=== PATIENT | male | born 1965 | race Caucasian/White ===

== ENCOUNTER 2020-12-21 09:15 | Inpatient (IN) ==
[2020-12-21] MEDS ORDERED: SODIUM CHLORIDE 0.9% 1000ML 1,000 ML IV STA (10:09)
[2020-12-21] MEDS ORDERED: ACETAMINOPHEN 1,000 MG/100 ML VIAL IV STA (10:10)
[2020-12-21] MEDS ORDERED: guaiFENesin 600 MG TABCR PO STA (10:10)
[2020-12-21] MEDS ORDERED: FAMOTIDINE 20MG IV PUSH 20 MG/5 ML SYR IV STA (10:10)
[2020-12-21] MEDS ORDERED: ONDANSETRON INJ 2 MG/ML 2 ML VIAL IV STA (10:10)
[2020-12-21] MEDS ORDERED: ALBUTEROL HFA 8 GM INHALER INH ONE (10:10)
--- NOTE | 2020-12-21 10:19 | Emergency Department Note ---
Impression & Plan COVID-19, Hyponatremia, Pneumonia due to COVID-19 virus, Hypoxia ED Provider Note NAME: AMINTA VILLASENOR AGE: 55 SEX: M ARRIVES VIA: Ambulance INFORMANT: Patient, ED PROVIDER(S): Tree Licea MD CHIEF COMPLAINT: Feverish, body aches, cough, sob PLAN: Disposition: Admit MEDICAL DECISION MAKING: The patient is a 55-year-old gentleman presents to the emergency department accompanied by his who also presents as a patient each presenting with similar symptoms of fevers, nausea, decreased appetite and oral intake, mild cough, shortness of breath and body aches that for the patient began on . They deny any COVID-19 exposures. They were seen in the emergency department on Sunday for the symptoms and were not tested for COVID-19 because they declined this. They deny any known tick bites but do admit that they work out in the garden. He denies abdominal pain, urinary symptoms, chest pain. He last took ibuprofen last night. On arrival the patient is uncomfortable fatigued appearing, with temperature of 37.7 with heart rate in the 110s and O2 saturation 90% on room air placed on 2 L nasal cannula. He appears clinically dry. Lungs with scant intermittent wheeze, otherwise clear. EKG without overt acute ischemia. CXR with bibasilar airspace opacities are new from previous. WBC wnl but with lymphopenia to 0.49. H/H, platelets wnl. Chemistry without acidosis. BUN/Cr > 20 c/w patient's clinically dry appearance. Sodium 127 and Electrolytes otherwise unremarkable. LFTs elevated approximate to prior. Tro ponin negative/undetectable. Lipase wnl. UA without convincing evidence of infection. Lyme screen negative. Anaplasm screen negative. Covid-19 PCR positive, as was his 's. Patient treat with IVF, dexamethasone, Albuterol MDI, antiemetics. He did feel some improvement but agrees with plan for admission given hypoxia and malaise. Mendez Douglas PAC, with Mendez Ortega hospitalist to evaluate the patient for admission. Triage Nursing notes reviewed and agree them. Prior medical records reviewed Vital Signs: reviewed and remarkable for fever, tachycardia, hypoxia. Differential diagnosis: Viral syndrome, otitis, pharyngitis, pneumonia, influenza, meningitis, urinary tract infection, sepsis, bacteremia, as well as other pathologies. ER treatment provided: See below. Diagnostics interpreted by me: ECG: Sinus tachycardia, 107 bpm, no ectopy, no overt ST elevation or depression. Cardiac Monitoring: An order for continuous cardiac monitoring was placed and demonstrated Sinus tachycardia, 107 bpm, no ectopy. Laboratory studies: See below Imaging studies: See below Consultation(s): Mendez Douglas [facility], with Dr. Forbes, [facility] hospitalist to evaluate the patient for admission. HPI: The patient is a 55-year-old gentleman presents to the emergency department accompanied by his who also presents as a patient each presenting with similar symptoms of fevers, nausea, decreased appetite and oral intake, mild cough, shortness of breath and body aches that for the patient began on . They deny any COVID-19 exposures. They were seen in the emergency department on Sunday for the symptoms and were not tested for COVID-19 because they declined this. They deny any known tick bites but do admit that they work out in the garden. He denies abdominal pain, urinary symptoms, chest pain. He last took ibuprofen last night. ROS: See above HPI for pertinent positives & negatives. A total of 10 systems reviewed and were otherwise negative. PAST MEDICAL HISTORY:See Below PAST SURGICAL HISTORY:See Below FAMILY HISTORY:See Below SOCIAL HISTORY:See Below HOME MEDICATIONS:See Below ALLERGIES:See Below VITALS:See Below PHYSICAL EXAMINATION: GENERAL: Awake, alert, uncomfortable ill-appearing, in no distress HENT: Normocephalic, atraumatic. Oropharynx with dry mucous membranes and otherwise unremarkable. EYES: Normal conjunctiva. Sclera non-icteric. NECK: Supple. No nuchal rigidity. FROM. No JVD. RESPIRATORY: Scant intermittent wheeze otherwise, clear to auscultation. CARDIAC: Tachycardic rate, normal rhythm. Extremities warm and well perfused. Pulses equal. ABDOMEN: Soft, non-distended. No tenderness to palpation. No rebound or guarding. No masses. RECTAL: Deferred. MUSCULOSKELETAL: Chest examination reveals no tenderness. The back is symmetrical on inspection without obvious abnormality. There is no CVA tenderness to palpation. No joint edema. LOWER EXTREMITIES: Calves are equal size bilaterally and non-tender. No edema. No discoloration. NEURO: Normal sensorium. No sensory or motor deficits noted. SKIN: No rash or jaundice noted. Tree Licea MD Past Med/Surg History Medical History HLD (hyperlipidemia) HTN (hypertension) Surgical History H/O inguinal hernia repair H/O knee surgery H/O vasectomy Family History Other Depression Diabetes Hypertension Social History Smoking Status: Former smoker Tobacco Type: Cigarettes Smoking End Date: 25 years ago or more; Hx Alcohol Use: Yes Alcohol type: beer, wine and hard liquor Alcohol Intake Frequency: Monthly or Less Hx Substance Use: No Preferred Language: Kazakh Communication Ability: Effective [employer] Required: No Beliefs That Will Affect Care: None Current Living Situation: Spouse Current Living Situation Comment: Lives with Other Information That Helps Us Care for You: No Feels Safe at Home: Yes Safety Concerns: Feels Safe At This Time Assistive Devices: Glasses Assistive Devices Comment: Wears "readers" and prescription driving glasses Allergies Allergies Allergy/AdvReac Type Severity Reaction Status Date / Time No Known Allergies Allergy Unknown PT DENIES Verified 12/21/20 13:02 ALL ALLERGIES Home Meds Home Medications Medication Instructions Recorded Confirmed diphenhydramine HCl 25 mg capsule 25 mg PO HS 08/07/19 12/21/20 (Benadryl) hydrochlorothiazide 25 mg tablet 25 mg PO HS 08/07/19 12/21/20 lisinopril 20 mg tablet 20 mg PO HS 08/07/19 12/21/20 omeprazole magnesium 20 mg 20 mg PO HS 08/07/19 12/21/20 tablet,delayed release (Prilosec OTC) ascorbic acid (vitamin C) 1,000 mg 500 mg PO HS 12/19/20 12/21/20 tablet (Vitamin C) cholecalciferol (vitamin D3) 25 25 mcg PO HS 12/19/20 12/21/20 mcg (1,000 unit) tablet (Vitamin D3) magnesium 250 mg tablet 250 mg PO HS 12/19/20 12/21/20 selenium 200 mcg tablet 200 mcg PO HS 12/19/20 12/21/20 azithromycin 250 mg tablet 250 mg PO DAILY 12/21/20 12/21/20 (Zithromax) omega-3 fatty acids-vitamin E 1 cap PO HS 12/21/20 12/21/20 1,000 mg capsule zinc 10 mg tablet 10 mg PO DAILY 12/21/20 12/21/20 Previous Rx's Medication Instructions Recorded ondansetron 4 mg disintegrating 4 mg PO Q6H PRN #15 tab 12/19/20 tablet Results & Data (ED) Vital Signs Vital Signs - 24 hr 12/21/20 09:27 12/21/20 10:56 12/21/20 11:03 Temperature 37.7 C H Temperature Source Oral Pulse Rate 110 H 104 H Pulse Rate from SpO2 Sensor 103 H Respiratory Rate 18 25 H Blood Pressure 140/87 189/117 H Blood Pressure Mean 104 141 Pulse Oximetry 90 90 98 Oxygen Delivery Method Room Air Room Air Nasal Cannula Oxygen Flow Rate 2 Sepsis Recent Fever Within 48 Hours Yes Sepsis New/Unexplained Change in Mental Status No Sepsis Action Taken by Nursing No Action Required 12/21/20 11:30 12/21/20 12:00 12/21/20 12:30 Temperature Temperature Source Pulse Rate 100 H 105 H 103 H Pulse Rate from SpO2 Sensor 99 H 106 H 102 H Respiratory Rate 26 H 26 H 18 Blood Pressure 130/75 113/82 Blood Pressure Mean 93 92 Pulse Oximetry 97 95 95 Oxygen Delivery Method Nasal Cannula Nasal Cannula Room Air Oxygen Flow Rate 2 2 Sepsis Recent Fever Within 48 Hours Sepsis New/Unexplained Change in Mental Status Sepsis Action Taken by Nursing Laboratory Data Attestation: I reviewed the patient's lab results. Result diagrams: 12/21/20 10:30 12/21/20 11:56 Lab Results 12/21/20 12/21/20 12/21/20 Range/Units 10:30 10:30 10:30 WBC 5.61 (4.8-10.8) K/uL RBC 4.88 (4.7-6.1) M/uL Hgb 15.7 (14.0-18.0) g/dL Hct 42.7 (42-52) % MCV 87.5 (80-100) fL MCH 32.2 (25-34) pg MCHC 36.8 H (32-36) g/dL RDW Std Deviation 40.3 (36.4-46.3) fL RDW Coeff of Angel 12.5 (11.5-14.5) % Plt Count 153 (130-400) K/uL MPV 9.6 (7.4-10.4) fL Immature Gran % (Auto) 0.7 % Neut % (Auto) 78.5 % Lymph % (Auto) 8.7 % [facility] [place] % (Auto) 11.9 % Eos % (Auto) 0.0 % Baso % (Auto) 0.2 % Neut # (Auto) 4.40 (1.4-6.5) K/uL Lymph # (Auto) 0.49 L (1.2-3.4) K/uL [facility] # (Auto) 0.67 H (0.11-0.59) K/uL Eos # (Auto) 0.00 (0-0.5) K/uL Baso # (Auto) 0.01 (0-0.2) K/uL Immature Gran # (Auto) 0.04 H (0.00-0.02) K/uL Sodium 127 L (136-145) mmol/L Potassium (3.5-5.1) mmol/L Chloride 94 L (98-107) mmol/L Carbon Dioxide 28 (21-32) mmol/L Anion Gap 5.0 (3-11) BUN 22 H (7-18) mg/dl Creatinine 0.99 (0.6-1.4) mg/dl Est Cr Clr Drug Dosing 101.7 ml/min Est GFR ( Amer) 99.7 ml/min Est GFR (Non-Af Amer) 86.0 ml/min BUN/Creatinine Ratio 22.3 H (10-20) Glucose 123 H (70-99) mg/dl Osmolality (280-300) mOsm/kg Calcium 8.6 (8.5-10.1) mg/dl Phosphorus 2.5 (2.5-4.9) mg/dl Magnesium (1.8-2.4) mg/dl Total Bilirubin 1.1 H (0.2-1) mg/dl Direct Bilirubin TNP AST (15-37) U/L ALT 139 H (12-78) U/L Alkaline Phosphatase 55 (45-117) U/L Troponin I < 0.015 (0-0.045) ng/ml Total Protein 7.7 (6.4-8.2) gm/dl Albumin 3.5 (3.4-5.0) gm/dl Globulin 4.2 H (2.5-4.0) gm/dl Albumin/Globulin Ratio 0.8 L (0.9-2) Lipase 325 (73-393) U/L TSH 0.880 (0.300-4.500) uIu/ml Anaplasma Smear See Comment Lyme Disease IgG Ab Cancelled Lyme Disease IgM Ab Cancelled COVID-19 Eval Order SARS-CoV-2 (PCR) (Negative) 12/21/20 12/21/20 12/21/20 Range/Units 11:00 11:00 11:56 WBC (4.8-10.8) K/uL RBC (4.7-6.1) M/uL Hgb (14.0-18.0) g/dL Hct (42-52) % MCV (80-100) fL MCH (25-34) pg MCHC (32-36) g/dL RDW Std Deviation (36.4-46.3) fL RDW Coeff of Angel (11.5-14.5) % Plt Count (130-400) K/uL MPV (7.4-10.4) fL Immature Gran % (Auto) % Neut % (Auto) % Lymph % (Auto) % [facility] % (Auto) % Eos % (Auto) % Baso % (Auto) % Neut # (Auto) (1.4-6.5) K/uL Lymph # (Auto) (1.2-3.4) K/uL [facility] # (Auto) (0.11-0.59) K/uL Eos # (Auto) (0-0.5) K/uL Baso # (Auto) (0-0.2) K/uL Immature Gran # (Auto) (0.00-0.02) K/uL Sodium (136-145) mmol/L Potassium 3.7 (3.5-5.1) mmol/L Chloride (98-107) mmol/L Carbon Dioxide (21-32) mmol/L Anion Gap (3-11) BUN (7-18) mg/dl Creatinine (0.6-1.4) mg/dl Est Cr Clr Drug Dosing ml/min Est GFR ( Amer) ml/min Est GFR (Non-Af Amer) ml/min BUN/Creatinine Ratio (10-20) Glucose (70-99) mg/dl Osmolality (280-300) mOsm/kg Calcium (8.5-10.1) mg/dl Phosphorus (2.5-4.9) mg/dl Magnesium 2.4 (1.8-2.4) mg/dl Total Bilirubin (0.2-1) mg/dl Direct Bilirubin AST 91 H (15-37) U/L ALT (12-78) U/L Alkaline Phosphatase (45-117) U/L Troponin I (0-0.045) ng/ml Total Protein (6.4-8.2) gm/dl Albumin (3.4-5.0) gm/dl Globulin (2.5-4.0) gm/dl Albumin/Globulin Ratio (0.9-2) Lipase (73-393) U/L TSH (0.300-4.500) uIu/ml Anaplasma Smear Lyme Disease IgG Ab Lyme Disease IgM Ab COVID-19 Eval Order Covid19 at [facility] SARS-CoV-2 (PCR) POSITIVE A* (Negative) 12/21/20 12/21/20 Range/Units 11:56 11:56 WBC (4.8-10.8) K/uL RBC (4.7-6.1) M/uL Hgb (14.0-18.0) g/dL Hct (42-52) % MCV (80-100) fL MCH (25-34) pg MCHC (32-36) g/dL RDW Std Deviation (36.4-46.3) fL RDW Coeff of Angel (11.5-14.5) % Plt Count (130-400) K/uL MPV (7.4-10.4) fL Immature Gran % (Auto) % Neut % (Auto) % Lymph % (Auto) % [facility] % (Auto) % Eos % (Auto) % Baso % (Auto) % Neut # (Auto) (1.4-6.5) K/uL Lymph # (Auto) (1.2-3.4) K/uL [facility] # (Auto) (0.11-0.59) K/uL Eos # (Auto) (0-0.5) K/uL Baso # (Auto) (0-0.2) K/uL Immature Gran # (Auto) (0.00-0.02) K/uL Sodium (136-145) mmol/L Potassium (3.5-5.1) mmol/L Chloride (98-107) mmol/L Carbon Dioxide (21-32) mmol/L Anion Gap (3-11) BUN (7-18) mg/dl Creatinine (0.6-1.4) mg/dl Est Cr Clr Drug Dosing ml/min Est GFR ( Amer) ml/min Est GFR (Non-Af Amer) ml/min BUN/Creatinine Ratio (10-20) Glucose (70-99) mg/dl Osmolality 278 L (280-300) mOsm/kg Calcium (8.5-10.1) mg/dl Phosphorus (2.5-4.9) mg/dl Magnesium (1.8-2.4) mg/dl Total Bilirubin (0.2-1) mg/dl Direct Bilirubin AST (15-37) U/L ALT (12-78) U/L Alkaline Phosphatase (45-117) U/L Troponin I (0-0.045) ng/ml Total Protein (6.4-8.2) gm/dl Albumin (3.4-5.0) gm/dl Globulin (2.5-4.0) gm/dl Albumin/Globulin Ratio (0.9-2) Lipase (73-393) U/L TSH (0.300-4.500) uIu/ml Anaplasma Smear Lyme Disease IgG Ab Negative Lyme Disease IgM Ab Negative COVID-19 Eval Order SARS-CoV-2 (PCR) (Negative) Administered Medications Acetaminophen (Acetaminophen 325 Mg Tab) 650 mg PO Q4H PRN PRN Reason: Pain or Fever Stop: 01/20/21 16:37 Last Admin: 12/22/20 00:08 Dose: 650 mg Documented by: [id number] Ascorbic Acid (Ascorbic Acid 500 Mg Tab) 500 mg PO HS STEPHANIE Stop: 01/20/21 20:59 Last Admin: 12/21/20 20:45 Dose: 500 mg Documented by: [id number] Enoxaparin Sodium (Enoxaparin Inj 40 Mg/0.4 Ml Syr) 40 mg SQ Q12H STEPHANIE Stop: 01/20/21 17:59 Last Admin: 12/21/20 18:06 Dose: 40 mg Documented by: [id number] Sodium Chloride (Nss 1000ml) 1,000 mls @ 125 mls/hr IV .Q8H STEPHANIE Stop: 01/20/21 12:44 Last Admin: 12/21/20 20:46 Dose: 125 mls/hr Documented by: [id number] Infusion: 12/21/20 20:46 Dose: 125 mls/hr Documented by: [id number] Admin: 12/21/20 13:04 Dose: 125 mls/hr Documented by: [id number] Magnesium Oxide (Magnesium Oxide 400 Mg Tab) 400 mg PO STEPHANIE Stop: 01/20/21 20:59 Last Admin: 12/21/20 20:45 Dose: 400 mg Documented by: [id number] Pantoprazole Sodium (Pantoprazole 40 Mg Tab) 40 mg PO [facility] Stop: 01/20/21 20:59 Last Admin: 12/21/20 20:46 Dose: 40 mg Documented by: [id number] Sodium Chloride (Sodium Chloride 0.65% Na Soln 45 Ml ([place])) 2 sprays NA TID PRN PRN Reason: Nasal Congestion Stop: 01/20/21 23:24 Last Admin: 12/22/20 00:08 Dose: 2 sprays Documented by: [id number] Vitamin D (Cholecalciferol 1,000 Units 25 Mcg Tab) 1,000 units PO [facility] Stop: 01/20/21 20:59 Last Admin: 12/21/20 20:45 Dose: 1,000 units Documented by: [id number] Discontinued Medications Albuterol (Albuterol Hfa 8 Gm Inhaler) 2 puffs INH NOW ONE Stop: 12/21/20 10:11 Last Admin: 12/21/20 11:26 Dose: 2 puffs Documented by: [id number] Dexamethasone Sodium Phosphate (DexamethasonePf 10 Mg/Ml Vial) 10 mg IV NOW ONE Stop: 12/21/20 12:33 Last Admin: 12/21/20 12:53 Dose: 10 mg Documented by: [id number] Guaifenesin (Guaifenesin 600 Mg Tabcr) 600 mg PO NOW STA Stop: 12/21/20 10:11 Last Admin: 12/21/20 11:22 Dose: 600 mg Documented by: [id number] Sodium Chloride (Nss 1000ml) 1,000 mls @ 999 mls/hr IV .Q1H1M STA Stop: 12/21/20 11:09 Last Infusion: 12/21/20 12:36 Dose: 0 mls/hr Documented by: [id number] Admin: 12/21/20 11:25 Dose: 999 mls/hr Documented by: [id number] Acetaminophen (Ofirmev) 1,000 mg in 100 mls @ 400 mls/hr IV NOW STA Stop: 12/21/20 10:24 Last Infusion: 12/21/20 12:35 Dose: 0 mls/hr Documented by: [id number] Admin: 12/21/20 11:21 Dose: 400 mls/hr Documented by: [id number] Famotidine (Pepcid 20mg Iv Push) 20 mg in 5 mls @ 2.5 mls/min IV NOW STA Stop: 12/21/20 10:11 Last Admin: 12/21/20 11:21 Dose: 2.5 mls/min Documented by: [id number] Remdesivir 200 mg/ Sodium (Chloride) 250 mls @ 125 mls/hr IV ONE STA; Protocol Stop: 12/21/20 16:25 Last Infusion: 12/21/20 19:13 Dose: 0 mls/hr Documented by: [id number] Admin: 12/21/20 16:18 Dose: 125 mls/hr Documented by: [id number] Ondansetron HCl (Ondansetron Inj 2 Mg/Ml 2 Ml Vial) 4 mg IV NOW STA Stop: 12/21/20 10:11 Last Admin: 12/21/20 11:20 Dose: 4 mg Documented by: [id number] Sodium Chloride (Sodium Chloride 0.9% 10ml Flush) 30 ml IV Q24H [facility] Stop: 12/21/20 14:31 Last Admin: 12/21/20 20:45 Dose: 30 ml Documented by: [id number] Zolpidem Tartrate (Zolpidem Tartrate 5 Mg Tab) 5 mg PO NOW STA Stop: 12/21/20 23:26 Last Admin: 12/22/20 00:08 Dose: 5 mg Documented by: [id number] Discharge Plan Visit Data Chief Complaint: Illness Stated Complaint: FLU LIKE SX, NAUSEA, HEADACHE, LETHARGY ED Provider: Tree Licea Discharge Problem: COVID-19, Hyponatremia, Pneumonia due to COVID-19 virus, Hypoxia Patient Disposition: Admitted As Inpatient Discharge Instructions Interventions: ED Discharge Assessment Last Done: 12/21/20 14:56
[2020-12-21 10:54] LABS: Basophils # (auto) 0.01 K/uL (0-0.2); Basophils % (auto) 0.2 %; Hematocrit (blood only) 42.7 % (42-52); Hemoglobin 15.7 g/dL (14.0-18.0); Immature Granulocytes # (auto) 0.04 K/uL (0.00-0.02); Immature Granulocytes % (auto) 0.7 %; Lymphocytes # (auto) 0.49 K/uL (1.2-3.4); Lymphocytes % (auto) 8.7 %; Mean Corpuscular Hemoglobin 32.2 pg (25-34); Mean Corpuscular Hgb Conc 36.8 g/dL (32-36); Mean Corpuscular Volume 87.5 fL (80-100); Mean Platelet Volume 9.6 fL (7.4-10.4); Monocytes # (auto) 0.67 K/uL (0.11-0.59); Monocytes % (auto) 11.9 %; Neutrophils % (auto) 78.5 %; Platelet Count 153 K/uL (130-400); RDW Coefficient of Variation 12.5 % (11.5-14.5); RDW Standard Deviation 40.3 fL (36.4-46.3); Red Blood Count 4.88 M/uL (4.7-6.1); White Blood Count 5.61 K/uL (4.8-10.8)
--- NOTE | 2020-12-21 11:16 | XRay Report ---
SINGLE VIEW CHEST CLINICAL HISTORY: Atypical chest pain. FINDINGS: An AP, portable, upright chest radiograph is compared to study dated 12/19/2020. The heart i s enlarged. The pulmonary vasculature is noncongested. Patchy opacities are present at both lung base s. No large pleural effusion or pneumothorax is seen. The skeletal structures appear osteopenic. The bony thorax is grossly intact. IMPRESSION: 1. Cardiomegaly without radiographic evidence of congestive failure. 2. Bibasilar airspace opacities are new from previous. Correlate clinically for evidence of an infect ious/inflammatory pneumonitis. Radiographic follow-up to resolution is recommended. ACT 112: Negative or not required by law. Electronically signed by: Antonio Collins M.D. 12/21/2020 11:15 AM
[2020-12-21 11:26] LABS: Alanine Aminotransferase 139 U/L (12-78); Albumin Globulin Ratio 0.8 (0.9-2); Albumin Level 3.5 gm/dl (3.4-5.0); Alkaline Phosphatase 55 U/L (45-117); BUN Creatinine Ratio 22.3 (10-20); Bilirubin,Total 1.1 mg/dl (0.2-1); Blood Urea Nitrogen 22 mg/dl (7-18); Calcium 8.6 mg/dl (8.5-10.1); Carbon Dioxide 28 mmol/L (21-32); Chloride 94 mmol/L (98-107); Creatinine Clr Calc Pharmacy 101.7 ml/min; Est GFR (African American) 99.7 ml/min; Globulin 4.2 gm/dl (2.5-4.0); Glucose 123 mg/dl (70-99); Lipase 325 U/L (73-393); Phosphorus 2.5 mg/dl (2.5-4.9); Sodium 127 mmol/L (136-145); Total Protein 7.7 gm/dl (6.4-8.2); Troponin I < 0.015 ng/ml (0-0.045)
[2020-12-21 12:17] LABS: Potassium 3.7 mmol/L (3.5-5.1)
[2020-12-21 12:21] LABS: Magnesium 2.4 mg/dl (1.8-2.4)
[2020-12-21] MEDS ORDERED: dexAMETHasone**PF** 10 MG/ML VIAL IV ONE (12:32)
[2020-12-21 12:49] LABS: Lyme Ab IgG w/WB Rflx Negative (Negative); Lyme Ab IgM w/WB Rflx Negative (Negative)
--- NOTE | 2020-12-21 12:55 | History & Physical Report ---
Date of Service December 21, 2020 Assessment & Plan (1) COVID-19: Plan: This is a 55yo M with a PMH of HTN and DLD who presents with viral symptoms that began 6 days ago and was found to be covid-19 positive on PCR test. Saturating 95% on 2L NC - will assess O2 saturation on room air Denies cough or SOB CXR with bibasilar airspace opacities are new from previous. Correlate clinically for evidence of an infectious/inflammatory pneumonitis No leukocytosis. Procal pending - no indication for antibiotics at this time No evidence of anaplasma on peripheral smear, lyme serology negative Continue dexamethasone, gentle IV fluids, supportive care Covid isolation precautions (2) Hyponatremia: Plan: Sodium 127 - hypotonic hypovolemic hyponatremia Continue gentle IV fluid resuscitation Monitor with daily BMP (3) HTN (hypertension): Plan: Normotensive. Holding HCTZ while clinically dry. Continue lisinopril HS (4) HLD (hyperlipidemia): Plan: Diet controlled DVT Ppx:SQ Lovenox Code status: FULL PCP: Didi iWnters Dispo: Admitted to PCU Patient seen in collaboration with Dr. Forbes. Please see addendum. History of Present Illness Chief Complaint: viral symptoms Primary Care Provider: Edi Winters, DO This is a 55yo M with a PMH of HTN and DLD who presents with viral symptoms that began 6 days ago. Patient endorses fevers (tmax 100.5 F), sinus congestion, headache, generalized weakness, nausea and dry heaves. Also endorsing decreased PO intake. Was likely exposed at [facility] 2 Sundays ago. Patient has not received covid vaccine. Went to [facility] ED on Sunday for similar symptoms but declined Covid-19 testing at that time. Took ibuprofen and mucinex last evening with minimal relief. Denies chills, cough, chest pain, abdominal pain, dysuria, diarrhea. Feeling constipated with limited oral intake. Allergies Allergy/AdvReac Type Severity Reaction Status Date / Time No Known Allergies Allergy Unknown PT DENIES Verified 12/21/20 13:02 ALL ALLERGIES Home Medications Medication Instructions Recorded Confirmed Type diphenhydramine HCl 25 mg capsule 25 mg PO HS 08/07/19 12/21/20 History (Benadryl) hydrochlorothiazide 25 mg tablet 25 mg PO HS 08/07/19 12/21/20 History lisinopril 20 mg tablet 20 mg PO HS 08/07/19 12/21/20 History omeprazole magnesium 20 mg 20 mg PO HS 08/07/19 12/21/20 History tablet,delayed release (Prilosec OTC) ascorbic acid (vitamin C) 1,000 mg 500 mg PO HS 12/19/20 12/21/20 History tablet (Vitamin C) cholecalciferol (vitamin D3) 25 25 mcg PO HS 12/19/20 12/21/20 History mcg (1,000 unit) tablet (Vitamin D3) magnesium 250 mg tablet 250 mg PO HS 12/19/20 12/21/20 History ondansetron 4 mg disintegrating 4 mg PO Q6H PRN #15 tab 12/19/20 12/21/20 Rx tablet selenium 200 mcg tablet 200 mcg PO HS 12/19/20 12/21/20 History azithromycin 250 mg tablet 250 mg PO DAILY 12/21/20 12/21/20 History (Zithromax) omega-3 fatty acids-vitamin E 1 cap PO HS 12/21/20 12/21/20 History 1,000 mg capsule zinc 10 mg tablet 10 mg PO DAILY 12/21/20 12/21/20 History Past Med/Surg History Medical History (Updated 12/21/20 @ 13:51 by Moni De La Paz PA-C) HLD (hyperlipidemia) HTN (hypertension) Surgical History (Updated 12/21/20 @ 13:33 by Moni De La Paz PA-C) H/O inguinal hernia repair H/O knee surgery H/O vasectomy Family History Other Depression Diabetes Hypertension Social History (Updated 12/21/20 @ 13:50 by Moni De La Paz PA-C) Smoking Status: Former smoker Tobacco Type: Cigarettes Smoking End Date: 1989; Hx Alcohol Use: Yes Alcohol Intake Frequency: Monthly or Less Hx Substance Use: No Preferred Language: Occitan Feels Safe at Home: Yes Review of Systems Review of Systems: At least ten systems reviewed and negative except as noted in the HPI. Physical Exam Physical Exam: The patient was examined in emergency room. Lying in bed without any acute distress Constitutional: Mildly obese without any significant discomfort at rest Eyes: PERRL, conjunctivae normal, anicteric sclerae ENMT: external ear and nose normal, oropharynx normal Neck: trachea midline, no thyromegaly Respiratory: Auscultation: + diminished lung sounds and + crackles (Left base) Minimally decreased breath sound bilaterally with minimal crackles at the left base Cardiovascular: Rate/Rhythm: regular rate and regular rhythm Heart Sounds: normal S1 and normal S2; no murmur Extremities: no edema Gastrointestinal (Abdomen): normal bowel sounds, soft, nontender, no hepatosplenomegaly Neurologic: PERRL, EOMI, accommodation nl, no face palsy, no dysarthria Psychiatric: A+Ox3, euthymic affect Lymphatic: no cervical or axillary lymphadenopathy Results & Data Results & Data ([facility]) Vital Signs (Past 12 Hours) Vital Signs Temp Pulse Resp BP Pulse Ox 12/21/20 11:30 100 H 26 H 97 12/21/20 11:03 104 H 25 H 189/117 H 98 12/21/20 10:56 90 12/21/20 09:27 37.7 C H 110 H 18 140/87 90 Laboratory Results Short CBC 12/21/20 Range/Units 10:30 WBC 5.61 (4.8-10.8) K/uL Hgb 15.7 (14.0-18.0) g/dL Hct 42.7 (42-52) % Plt Count 153 (130-400) K/uL BMP 12/21/20 12/21/20 10:30 11:56 Sodium 127 L Potassium 3.7 Chloride 94 L Carbon Dioxide 28 BUN 22 H Creatinine 0.99 Glucose 123 H Calcium 8.6 Cardiac Enzymes 12/21/20 Range/Units 10:30 Troponin I < 0.015 (0-0.045) ng/ml Liver Function 12/21/20 12/21/20 Range/Units 10:30 11:56 Total Bilirubin 1.1 H (0.2-1) mg/dl Direct Bilirubin TNP AST 91 H (15-37) U/L ALT 139 H (12-78) U/L Alkaline Phosphatase 55 (45-117) U/L Albumin 3.5 (3.4-5.0) gm/dl Diagnostic Findings Chest X-Ray 12/21/20 10:10 SINGLE VIEW CHEST CLINICAL HISTORY: Atypical chest pain. FINDINGS: An AP, portable, upright chest radiograph is compared to study dated 12/19/2020. The heart is enlarged. The pulmonary vasculature is noncongested. Patchy opacities are present at both lung bases. No large pleural effusion or pneumothorax is seen. The skeletal structures appear osteopenic. The bony thorax is grossly intact. IMPRESSION: 1. Cardiomegaly without radiographic evidence of congestive failure. 2. Bibasilar airspace opacities are new from previous. Correlate clinically for evidence of an infectious/inflammatory pneumonitis. Radiographic follow-up to resolution is recommended. ACT 112: Negative or not required by law. Electronically signed by: Antonio Collins M.D. 12/21/2020 11:15 AM Code Status & VTE Plan VTE Prophylaxis Plan VTE Prophylaxis will be ordered: Yes Supervising Physician Co-Signing Physician Notes Attending addendum; The patient was seen and examined in emergency room. He has been complaining of progressive weakness since last with associated temperature of 100.5 without any respiratory symptoms He was noted to have COVID-19 infection His examination is as above His labs and imaging studies reviewed Has profound weakness secondary to COVID-19 virus infection Bibasilar changes in the lungs with minimal desaturation on room air Will be given remdesivir and dexamethasone for Covid infection Other medical management as advised Agree with assessment and plan as outlined above by REYNALDO Douglas DR
[2020-12-21] MEDS: SODIUM CHLORIDE 0.9% 1000ML 1,000 ML IV SCH ×2 (13:04→20:46)
[2020-12-21] MEDS ORDERED: REMDESIVIR 200 MG in SODIUM CHLORIDE 0.9% 210 ML IV STA (14:26)
[2020-12-21] MEDS ORDERED: SODIUM CHLORIDE 0.9% 10ML FLUSH IV SCH (14:30)
--- NOTE | 2020-12-21 15:53 | Electrocardiogram Report ---
Test Reason : Blood Pressure : / mmHG Vent. Rate : 107 BPM Atrial Rate : 107 BPM P-R Int : 156 ms QRS Dur : 080 ms QT Int : 322 ms P-R-T Axes : 030 021 007 degrees QTc Int : 429 ms Sinus tachycardia Otherwise normal ECG When compared with ECG of 07-AUG-2019 07:21, No significant change was found Confirmed by Dominik Landrum ([id number]) on 12/21/2020 3:52:42 PM Referred By: REFERRED SELF Confirmed By:Dominik Landrum
[2020-12-21] MEDS ORDERED: POLYETHYLENE (MIRALAX) 17 GM PACK PO PRN (16:38)
[2020-12-21] MEDS ORDERED: ONDANSETRON INJ 2 MG/ML 2 ML VIAL IV PRN (16:38)
[2020-12-21] MEDS: ENOXAPARIN INJ 40 MG/0.4 ML SYR SQ SCH (18:06)
[2020-12-21] MEDS: MAGNESIUM OXIDE 400 MG TAB PO SCH (20:45)
[2020-12-21] MEDS: CHOLECALCIFEROL 1,000 UNITS 25 MCG TAB PO SCH (20:45)
[2020-12-21] MEDS: ASCORBIC ACID 500 MG TAB PO SCH (20:45)
[2020-12-21] MEDS: PANTOprazole 40 MG TAB PO SCH (20:46)
[2020-12-21 23:02] LABS: Appearance Urine Clear (Clear); Bilirubin Urine Negative (Negative); Blood Urine Negative (Negative); Color Urine Yellow; Glucose Urine UA 2+ (Negative); Ketones Urine Trace (Negative); Leukocyte Esterase Urine Negative (Negative); Nitrite Urine Negative (Negative); Protein Urine Negative (Negative); Specific Gravity Urine 1.017 (1.000-1.030); Urobilinogen Urine Negative (Negative); pH Urine 5.5 (4.5-7.5)
[2020-12-21] MEDS ORDERED: SODIUM CHLORIDE 0.65% NA SOLN 45 ML (OCEAN) PRN (23:25)
[2020-12-21] MEDS ORDERED: ZOLPIDEM TARTRATE 5 MG TAB PO STA (23:25)
[2020-12-22] MEDS: ACETAMINOPHEN 325 MG TAB PO PRN ×2 (00:08→05:03)
[2020-12-22] MEDS: SODIUM CHLORIDE 0.9% 1000ML 1,000 ML IV SCH ×2 (04:59→12:02)
[2020-12-22] MEDS: ENOXAPARIN INJ 40 MG/0.4 ML SYR SQ SCH ×2 (04:59→17:13)
[2020-12-22 06:38] LABS: Hematocrit (blood only) 38.3 % (42-52); Hemoglobin 13.5 g/dL (14.0-18.0); Mean Corpuscular Hemoglobin 31.5 pg (25-34); Mean Corpuscular Hgb Conc 35.2 g/dL (32-36); Mean Corpuscular Volume 89.5 fL (80-100); Mean Platelet Volume 9.5 fL (7.4-10.4); Platelet Count 163 K/uL (130-400); RDW Coefficient of Variation 12.6 % (11.5-14.5); RDW Standard Deviation 40.9 fL (36.4-46.3); Red Blood Count 4.28 M/uL (4.7-6.1); White Blood Count 6.12 K/uL (4.8-10.8)
[2020-12-22 07:11] LABS: Albumin Level 2.9 gm/dl (3.4-5.0); BUN Creatinine Ratio 20.2 (10-20); Calcium 7.8 mg/dl (8.5-10.1); Creatinine Clr Calc Pharmacy 101.4 ml/min; Est GFR (African American) 98.5 ml/min; Est GFR (Non-African American) 84.9 ml/min; Potassium 3.5 mmol/L (3.5-5.1)
[2020-12-22 07:19] LABS: Albumin Globulin Ratio 0.8 (0.9-2); Bilirubin,Total 0.9 mg/dl (0.2-1); Globulin 3.5 gm/dl (2.5-4.0); Total Protein 6.4 gm/dl (6.4-8.2)
[2020-12-22] MEDS ORDERED: NON-FORMULARY MEDICATION (Zinc 10 mg Tablet) PO SCH (09:00)
[2020-12-22] MEDS: dexAMETHasone 6 MG in SYRINGE 0 ML IV SCH (09:02)
[2020-12-22] MEDS: REMDESIVIR 100mg: Days 2-5 IV SCH (11:56)
[2020-12-22] MEDS: NSS 30mL Flush, Days 1-5 IV SCH (13:38)
--- NOTE | 2020-12-22 17:05 | Hospitalist Progress Note ---
Date of Service December 22, 2020 Assessment & Plan (1) COVID-19: Plan: This is a 55yo M with a PMH of HTN and DLD who presents with viral symptoms that began 6 days ago and was found to be covid-19 positive on PCR test. Saturating 95% on 2L NC - will assess O2 saturation on room air Denies cough or SOB CXR with bibasilar airspace opacities are new from previous. Correlate clinically for evidence of an infectious/inflammatory pneumonitis No leukocytosis. Procal pending - no indication for antibiotics at this time No evidence of anaplasma on peripheral smear, lyme serology negative Continue dexamethasone, gentle IV fluids, supportive care Covid isolation precautions Has been complaining of cough and mild shortness of breath persisting We will add guaifenesin and Tessalon Perles Continue current treatment of remdesivir and dexamethasone IV fluid has been discontinued (2) Hyponatremia: Plan: Sodium 127 - hypotonic hypovolemic hyponatremia Continue gentle IV fluid resuscitation Monitor with daily BMP -sodium level is up at 133 (3) HTN (hypertension): Plan: Normotensive. Holding HCTZ while clinically dry. Continue lisinopril HS Blood pressure remains controlled (4) HLD (hyperlipidemia): Plan: Diet controlled DVT Ppx:SQ Lovenox Code status: FULL PCP: Didi Winters Dispo: Admitted to PCU Admission and Anticipated Discharge Date Admission Date: December 21, 2020 Subjective 12/22/2020 The patient was seen and examined in telemetry unit and Covid room He has been complaining of cough and shortness of breath No fever and no chills Still requiring 2 L of oxygen to maintain saturation Denies any other symptoms Review of Systems Review of Systems: All systems reviewed and are unremarkable except as noted below Respiratory: + cough and + dyspnea Physical Exam Physical Exam: Lying in bed with minimal shortness of breath at rest Constitutional: well developed, well nourished, + ill appearing and + obese Eyes: PERRL, conjunctivae normal, anicteric sclerae ENMT: external ear and nose normal, oropharynx normal Neck: trachea midline, no thyromegaly Respiratory: Auscultation: + diminished lung sounds and + crackles (Left base) Cardiovascular: Rate/Rhythm: regular rate and regular rhythm Heart Sounds: normal S1 and normal S2; no murmur Extremities: no edema Gastrointestinal (Abdomen): normal bowel sounds, soft, nontender, no hepatosplenomegaly Neurologic: PERRL, EOMI, accommodation nl, no face palsy, no dysarthria Psychiatric: A+Ox3, euthymic affect Lymphatic: no cervical or axillary lymphadenopathy Results & Data Results & Data ([facility]) Vital Signs (Past 12 Hours) Vital Signs Temp Pulse Pulse Resp BP Pulse Ox 12/22/20 16:00 86 12/22/20 12:00 36.8 C 87 20 137/84 94 12/22/20 08:04 36.7 C 97 H 18 135/78 97 12/22/20 07:13 91 H 12/22/20 05:02 38.3 C H 89 18 129/83 96 Laboratory Results Short CBC 12/22/20 Range/Units 05:42 WBC 6.12 (4.8-10.8) K/uL Hgb 13.5 L (14.0-18.0) g/dL Hct 38.3 L (42-52) % Plt Count 163 (130-400) K/uL BMP 12/22/20 05:42 Sodium 133 L Potassium 3.5 Chloride 100 Carbon Dioxide 28 BUN 20 H Creatinine 1.00 Glucose 110 H Calcium 7.8 L Liver Function 12/22/20 Range/Units 05:42 Total Bilirubin 0.9 (0.2-1) mg/dl AST 72 H (15-37) U/L ALT 99 H (12-78) U/L Alkaline Phosphatase 45 (45-117) U/L Albumin 2.9 L (3.4-5.0) gm/dl Urine 12/21/20 Range/Units 22:00 Urine Color Yellow Urine Appearance Clear (Clear) Urine pH 5.5 (4.5-7.5) Ur Specific [place] 1.017 (1.000-1.030) Urine Protein Negative (Negative) Urine Glucose (UA) 2+ H (Negative) Medications Administered Current Inpatient Medications Acetaminophen (Acetaminophen 325 Mg Tab) 650 mg PO Q4H PRN PRN Reason: Pain or Fever Stop: 01/20/21 16:37 Last Admin: 12/22/20 05:03 Dose: 650 mg Documented by: Ascorbic Acid (Ascorbic Acid 500 Mg Tab) 500 mg PO HS [facility] Stop: 01/20/21 20:59 Last Admin: 12/21/20 20:45 Dose: 500 mg Documented by: Benzonatate (Benzonatate 100 Mg Capsule) 100 mg PO TID [facility] Stop: 01/21/21 20:59 Enoxaparin Sodium (Enoxaparin Inj 40 Mg/0.4 Ml Syr) 40 mg SQ Q12H [facility] Stop: 01/20/21 17:59 Last Admin: 12/22/20 04:59 Dose: 40 mg Documented by: Guaifenesin (Guaifenesin 600 Mg Tabcr) 1,200 mg PO Q12 [facility] Stop: 01/21/21 20:59 Dexamethasone 6 mg/ Syringe 1.5 mls @ 1 mls/min IV DAILY [facility] Stop: 01/01/21 08:59 Last Admin: 12/22/20 09:02 Dose: 1 mls/min Documented by: Remdesivir 100 mg/ Sodium (Chloride) 250 mls @ 250 mls/hr IV Q24H [facility]; Protocol Stop: 12/25/20 12:59 Last Infusion: 12/22/20 13:38 Dose: Infused Documented by: Magnesium Oxide (Magnesium Oxide 400 Mg Tab) 400 mg PO HS [facility] Stop: 01/20/21 20:59 Last Admin: 12/21/20 20:45 Dose: 400 mg Documented by: Ondansetron HCl (Ondansetron Inj 2 Mg/Ml 2 Ml Vial) 4 mg IV Q6H PRN PRN Reason: Nausea Stop: 01/20/21 16:37 Pantoprazole Sodium (Pantoprazole 40 Mg Tab) 40 mg PO HS [facility] Stop: 01/20/21 20:59 Last Admin: 12/21/20 20:46 Dose: 40 mg Documented by: Polyethylene Glycol (Polyethylene (Miralax) 17 Gm Pack) 17 gm PO DAILY PRN PRN Reason: Constipation Stop: 01/20/21 16:37 Sodium Chloride (Sodium Chloride 0.65% Na Soln 45 Ml ([place])) 2 sprays NA TID PRN PRN Reason: Nasal Congestion Stop: 01/20/21 23:24 Last Admin: 12/22/20 00:08 Dose: 2 sprays Documented by: Sodium Chloride (Nss 30ml Flush, Days 1-5) 30 ml IV Q24H [facility] Stop: 12/25/20 13:01 Last Admin: 12/22/20 13:38 Dose: 30 ml Documented by: Vitamin D (Cholecalciferol 1,000 Units 25 Mcg Tab) 1,000 units PO HS [facility] Stop: 01/20/21 20:59 Last Admin: 12/21/20 20:45 Dose: 1,000 units Documented by:
[2020-12-22] MEDS: PANTOprazole 40 MG TAB PO SCH (20:01)
[2020-12-22] MEDS: MAGNESIUM OXIDE 400 MG TAB PO SCH (20:01)
[2020-12-22] MEDS: CHOLECALCIFEROL 1,000 UNITS 25 MCG TAB PO SCH (20:01)
[2020-12-22] MEDS: ASCORBIC ACID 500 MG TAB PO SCH (20:01)
[2020-12-22] MEDS: BENZONATATE 100 MG CAPSULE PO SCH (20:02)
[2020-12-22] MEDS: guaiFENesin 600 MG TABCR PO SCH (20:03)
[2020-12-23] MEDS: ENOXAPARIN INJ 40 MG/0.4 ML SYR SQ SCH ×2 (04:13→17:38)
[2020-12-23 07:02] LABS: Hematocrit (blood only) 40.4 % (42-52); Hemoglobin 14.3 g/dL (14.0-18.0); Mean Corpuscular Hemoglobin 31.7 pg (25-34); Mean Corpuscular Hgb Conc 35.4 g/dL (32-36); Mean Corpuscular Volume 89.6 fL (80-100); Mean Platelet Volume 9.4 fL (7.4-10.4); Platelet Count 178 K/uL (130-400); RDW Coefficient of Variation 12.8 % (11.5-14.5); RDW Standard Deviation 42.1 fL (36.4-46.3); Red Blood Count 4.51 M/uL (4.7-6.1)
[2020-12-23 08:08] LABS: Albumin Level 2.7 gm/dl (3.4-5.0); BUN Creatinine Ratio 24.1 (10-20); Calcium 8.1 mg/dl (8.5-10.1); Est GFR (African American) 120.5 ml/min; Potassium 3.6 mmol/L (3.5-5.1)
[2020-12-23 08:10] LABS: Albumin Globulin Ratio 0.8 (0.9-2); Bilirubin,Total 0.6 mg/dl (0.2-1); Globulin 3.4 gm/dl (2.5-4.0); Total Protein 6.1 gm/dl (6.4-8.2)
[2020-12-23] MEDS: dexAMETHasone 6 MG in SYRINGE 0 ML IV SCH (08:12)
[2020-12-23] MEDS: BENZONATATE 100 MG CAPSULE PO SCH ×3 (08:12→20:56)
[2020-12-23] MEDS: guaiFENesin 600 MG TABCR PO SCH ×2 (08:13→20:57)
[2020-12-23] MEDS ORDERED: ENOXAPARIN INJ 40 MG/0.4 ML SYR SQ SCH (09:15)
[2020-12-23] MEDS: REMDESIVIR 100mg: Days 2-5 IV SCH (11:57)
[2020-12-23] MEDS ORDERED: REMDESIVIR 100mg: Days 2-5 IV SCH (12:00)
[2020-12-23] MEDS: NSS 30mL Flush, Days 1-5 IV SCH (13:15)
--- NOTE | 2020-12-23 17:20 | Hospitalist Progress Note ---
Date of Service December 23, 2020 Assessment & Plan (1) COVID-19: Plan: This is a 55yo M with a PMH of HTN and DLD who presents with viral symptoms that began 6 days ago and was found to be covid-19 positive on PCR test. Saturating 95% on 2L NC - will assess O2 saturation on room air Denies cough or SOB CXR with bibasilar airspace opacities are new from previous. Correlate clinically for evidence of an infectious/inflammatory pneumonitis No leukocytosis. Procal pending - no indication for antibiotics at this time No evidence of anaplasma on peripheral smear, lyme serology negative Continue dexamethasone, gentle IV fluids, supportive care Covid isolation precautions Has been complaining of cough and mild shortness of breath persisting We will add guaifenesin and Tessalon Perles Continue current treatment of remdesivir and dexamethasone IV fluid has been discontinued We will try Lasix to keep him on the raw stock drier tender side (2) Hyponatremia: Plan: Sodium 127 - hypotonic hypovolemic hyponatremia Continue gentle IV fluid resuscitation Monitor with daily BMP -sodium level is up at 133 Monitor PRP (3) HTN (hypertension): Plan: Normotensive. Holding HCTZ while clinically dry. Continue lisinopril HS Blood pressure remains controlled Lasix will be given IV once daily (4) HLD (hyperlipidemia): Plan: Diet controlled DVT Ppx:SQ Lovenox Code status: FULL PCP: Didi Winters Dispo: Admitted to PCU Admission and Anticipated Discharge Date Admission Date: December 21, 2020 Subjective 12/22/2020 The patient was seen and examined in telemetry unit and Covid room He has been complaining of cough and shortness of breath No fever and no chills Still requiring 2 L of oxygen to maintain saturation Denies any other symptoms 12/23/2020 The patient was seen and examined in telemetry and Covid room He has been worse today with increasing shortness of breath but the cough is better He was in prone position for some time Denies any pain and/or nausea or vomiting Review of Systems Review of Systems: All systems reviewed and are unremarkable except as noted below Respiratory: + cough and + dyspnea Physical Exam Physical Exam: Lying in bed with minimal shortness of breath at rest Constitutional: well developed, well nourished, + ill appearing and + obese Eyes: PERRL, conjunctivae normal, anicteric sclerae ENMT: external ear and nose normal, oropharynx normal Neck: trachea midline, no thyromegaly Respiratory: Auscultation: + diminished lung sounds and + crackles (Left base) Cardiovascular: Rate/Rhythm: regular rate and regular rhythm Heart Sounds: normal S1 and normal S2; no murmur Extremities: no edema Gastrointestinal (Abdomen): normal bowel sounds, soft, nontender, no hepatosplenomegaly Neurologic: PERRL, EOMI, accommodation nl, no face palsy, no dysarthria Psychiatric: A+Ox3, euthymic affect Lymphatic: no cervical or axillary lymphadenopathy Results & Data Results & Data ([facility]) Vital Signs (Past 12 Hours) Vital Signs Temp Pulse Pulse Pulse Resp BP BP 12/23/20 16:00 36.6 C 70 22 119/75 12/23/20 12:01 36.6 C 80 20 147/84 H 12/23/20 07:52 84 12/23/20 07:36 36.8 C 91 H 20 134/78 Pulse Ox 12/23/20 16:00 95 12/23/20 12:01 91 12/23/20 07:52 12/23/20 07:36 92 Laboratory Results Short CBC 12/23/20 Range/Units 05:55 WBC 7.90 (4.8-10.8) K/uL Hgb 14.3 (14.0-18.0) g/dL Hct 40.4 L (42-52) % Plt Count 178 (130-400) K/uL BMP 12/23/20 05:55 Sodium 134 L Potassium 3.6 Chloride 103 Carbon Dioxide 26 BUN 18 Creatinine 0.75 Glucose 96 Calcium 8.1 L Liver Function 12/23/20 Range/Units 05:55 Total Bilirubin 0.6 (0.2-1) mg/dl AST 64 H (15-37) U/L ALT 80 H (12-78) U/L Alkaline Phosphatase 44 L (45-117) U/L Albumin 2.7 L (3.4-5.0) gm/dl Medications Administered Current Inpatient Medications Acetaminophen (Acetaminophen 325 Mg Tab) 650 mg PO Q4H PRN PRN Reason: Pain or Fever Stop: 01/20/21 16:37 Last Admin: 12/22/20 05:03 Dose: 650 mg Documented by: Ascorbic Acid (Ascorbic Acid 500 Mg Tab) 500 mg PO HS [facility] Stop: 01/20/21 20:59 Last Admin: 12/22/20 20:01 Dose: 500 mg Documented by: Benzonatate (Benzonatate 100 Mg Capsule) 100 mg PO TID [facility] Stop: 01/21/21 20:59 Last Admin: 12/23/20 14:38 Dose: 100 mg Documented by: Enoxaparin Sodium (Enoxaparin Inj 40 Mg/0.4 Ml Syr) 40 mg SQ Q12H [facility] Stop: 01/20/21 17:59 Last Admin: 12/23/20 04:13 Dose: 40 mg Documented by: Guaifenesin (Guaifenesin 600 Mg Tabcr) 1,200 mg PO Q12 [facility] Stop: 01/21/21 20:59 Last Admin: 12/23/20 08:13 Dose: 1,200 mg Documented by: Dexamethasone 6 mg/ Syringe 1.5 mls @ 1 mls/min IV DAILY [facility] Stop: 01/01/21 08:59 Last Admin: 12/23/20 08:12 Dose: 1 mls/min Documented by: Remdesivir 100 mg/ Sodium (Chloride) 250 mls @ 250 mls/hr IV Q24H [facility]; Protocol Stop: 12/25/20 12:59 Last Infusion: 12/23/20 13:15 Dose: Infused Documented by: Magnesium Oxide (Magnesium Oxide 400 Mg Tab) 400 mg PO [facility] Stop: 01/20/21 20:59 Last Admin: 12/22/20 20:01 Dose: 400 mg Documented by: Ondansetron HCl (Ondansetron Inj 2 Mg/Ml 2 Ml Vial) 4 mg IV Q6H PRN PRN Reason: Nausea Stop: 01/20/21 16:37 Pantoprazole Sodium (Pantoprazole 40 Mg Tab) 40 mg PO [facility] Stop: 01/20/21 20:59 Last Admin: 12/22/20 20:01 Dose: 40 mg Documented by: Polyethylene Glycol (Polyethylene (Miralax) 17 Gm Pack) 17 gm PO DAILY PRN PRN Reason: Constipation Stop: 01/20/21 16:37 Sodium Chloride (Sodium Chloride 0.65% Na Soln 45 Ml ([place])) 2 sprays NA TID PRN PRN Reason: Nasal Congestion Stop: 01/20/21 23:24 Last Admin: 12/22/20 00:08 Dose: 2 sprays Documented by: Sodium Chloride (Nss 30ml Flush, Days 1-5) 30 ml IV Q24H [facility] Stop: 12/25/20 13:01 Last Admin: 12/23/20 13:15 Dose: 30 ml Documented by: Vitamin D (Cholecalciferol 1,000 Units 25 Mcg Tab) 1,000 units PO HS [facility] Stop: 01/20/21 20:59 Last Admin: 12/22/20 20:01 Dose: 1,000 units Documented by:
[2020-12-23] MEDS ORDERED: FUROSEMIDE 40 MG in SYRINGE 0 ML IV ONE (18:00)
[2020-12-23] MEDS ORDERED: COUGH DROP (SUGAR FREE) LOZ 24 LOZ/1 BOX BUCCAL ONE (18:40)
[2020-12-23] MEDS: CHOLECALCIFEROL 1,000 UNITS 25 MCG TAB PO SCH (20:56)
[2020-12-23] MEDS: ASCORBIC ACID 500 MG TAB PO SCH (20:56)
[2020-12-23] MEDS: PANTOprazole 40 MG TAB PO SCH (20:57)
[2020-12-23] MEDS: MAGNESIUM OXIDE 400 MG TAB PO SCH (20:57)
[2020-12-24] MEDS: ENOXAPARIN INJ 40 MG/0.4 ML SYR SQ SCH ×2 (05:31→18:15)
[2020-12-24] MEDS: guaiFENesin 600 MG TABCR PO SCH ×2 (08:56→22:20)
[2020-12-24] MEDS: BENZONATATE 100 MG CAPSULE PO SCH ×3 (08:56→22:20)
[2020-12-24] MEDS ORDERED: FUROSEMIDE 40 MG in SYRINGE 0 ML IV ONE ×2 (09:00→16:15)
[2020-12-24] MEDS: dexAMETHasone 6 MG in SYRINGE 0 ML IV SCH (09:07)
--- NOTE | 2020-12-24 09:58 | XRay Report ---
SINGLE VIEW CHEST CLINICAL HISTORY: Pneumonia. FINDINGS: An AP, portable, upright chest radiograph is compared to study dated 12/21/2020. The cardiom ediastinal silhouette is top normal for projection. Multifocal airspace consolidation is seen through out both lungs. This has significantly progressed as compared to 12/21/2020. No large pleural effusion or pneumothorax is seen. The bony thorax is grossly intact. IMPRESSION: Multifocal airspace consolidation has significantly progressed as compared to 12/21/2020. ACT 112: Negative or not required by law. Electronically signed by: Antonio Collins M.D. 12/24/2020 9:57 AM
[2020-12-24] MEDS: REMDESIVIR 100mg: Days 2-5 IV SCH (12:43)
[2020-12-24] MEDS: NSS 30mL Flush, Days 1-5 IV SCH (14:09)
--- NOTE | 2020-12-24 16:43 | Hospitalist Progress Note ---
Date of Service December 24, 2020 Assessment & Plan (1) COVID-19: Plan: This is a 55yo M with a PMH of HTN and DLD who presents with viral symptoms that began 6 days ago and was found to be covid-19 positive on PCR test. Saturating 95% on 2L NC - will assess O2 saturation on room air Denies cough or SOB CXR with bibasilar airspace opacities are new from previous. Correlate clinically for evidence of an infectious/inflammatory pneumonitis No leukocytosis. Procal pending - no indication for antibiotics at this time No evidence of anaplasma on peripheral smear, lyme serology negative Continue dexamethasone, gentle IV fluids, supportive care Covid isolation precautions Has been complaining of cough and mild shortness of breath persisting We will add guaifenesin and Tessalon Perles Continue current treatment of remdesivir and dexamethasone IV fluid has been discontinued Chest x-ray did show worsening of pneumonia and he has been requiring up to 5 L of oxygen to maintain saturation He received 40 mg Lasix IV this morning CRP is mildly elevated at 2.01 but prolactin is normal We'll give another dose of Lasix 40 mg IV now Monitor PRP (2) Hyponatremia: Plan: Sodium 127 - hypotonic hypovolemic hyponatremia Continue gentle IV fluid resuscitation Monitor with daily BMP -sodium level is up at 133 Monitor PRP-sodium level is improved to 134 (3) HTN (hypertension): Plan: Normotensive. Holding HCTZ while clinically dry. Continue lisinopril HS Blood pressure remains controlled Lasix will be given IV once daily (4) HLD (hyperlipidemia): Plan: Diet controlled DVT Ppx:SQ Lovenox Code status: FULL PCP: Didi Winters Dispo: Admitted to PCU Admission and Anticipated Discharge Date Admission Date: December 21, 2020 Subjective 12/22/2020 The patient was seen and examined in telemetry unit and Covid room He has been complaining of cough and shortness of breath No fever and no chills Still requiring 2 L of oxygen to maintain saturation Denies any other symptoms 12/23/2020 The patient was seen and examined in telemetry and Covid room He has been worse today with increasing shortness of breath but the cough is better He was in prone position for some time Denies any pain and/or nausea or vomiting 12/24/2020 The patient was seen and examined in telemetry unit and Covid room His condition has gotten worse since last night Chest x-ray did show worsening of pneumonia and requiring more oxygen to maintain saturation Review of Systems Review of Systems: All systems reviewed and are unremarkable except as noted below Respiratory: + cough and + dyspnea Physical Exam Physical Exam: Lying in bed in prone position without any apparent distress Constitutional: well developed, well nourished, + ill appearing and + obese Eyes: PERRL, conjunctivae normal, anicteric sclerae ENMT: external ear and nose normal, oropharynx normal Neck: trachea midline, no thyromegaly Respiratory: Auscultation: + diminished lung sounds and + crackles (Left base) Cardiovascular: Rate/Rhythm: regular rate and regular rhythm Heart Sounds: normal S1 and normal S2; no murmur Extremities: no edema Gastrointestinal (Abdomen): normal bowel sounds, soft, nontender, no hepatosplenomegaly Neurologic: PERRL, EOMI, accommodation nl, no face palsy, no dysarthria Psychiatric: A+Ox3, euthymic affect Lymphatic: no cervical or axillary lymphadenopathy Results & Data Results & Data ([facility]) Vital Signs (Past 12 Hours) Vital Signs Temp Pulse Pulse Resp BP Pulse Ox Pulse Ox 12/24/20 15:00 70 12/24/20 14:59 36.5 C 81 18 117/70 96 12/24/20 11:30 36.4 C L 83 20 122/81 94 12/24/20 09:00 90 12/24/20 08:14 94 12/24/20 08:00 36.4 C L 60 63 20 127/68 93 Medications Administered Current Inpatient Medications Acetaminophen (Acetaminophen 325 Mg Tab) 650 mg PO Q4H PRN PRN Reason: Pain or Fever Stop: 01/20/21 16:37 Last Admin: 12/22/20 05:03 Dose: 650 mg Documented by: Ascorbic Acid (Ascorbic Acid 500 Mg Tab) 500 mg PO HS [facility] Stop: 01/20/21 20:59 Last Admin: 12/23/20 20:56 Dose: 500 mg Documented by: Benzonatate (Benzonatate 100 Mg Capsule) 100 mg PO TID [facility] Stop: 01/21/21 20:59 Last Admin: 12/24/20 14:53 Dose: 100 mg Documented by: Enoxaparin Sodium (Enoxaparin Inj 40 Mg/0.4 Ml Syr) 40 mg SQ Q12H [facility] Stop: 01/20/21 17:59 Last Admin: 12/24/20 05:31 Dose: 40 mg Documented by: Guaifenesin (Guaifenesin 600 Mg Tabcr) 1,200 mg PO Q12 [facility] Stop: 01/21/21 20:59 Last Admin: 12/24/20 08:56 Dose: 1,200 mg Documented by: Dexamethasone 6 mg/ Syringe 1.5 mls @ 1 mls/min IV DAILY [facility] Stop: 01/01/21 08:59 Last Admin: 12/24/20 09:07 Dose: 1 mls/min Documented by: Remdesivir 100 mg/ Sodium (Chloride) 250 mls @ 250 mls/hr IV Q24H [facility]; Protocol Stop: 12/25/20 12:59 Last Infusion: 12/24/20 14:09 Dose: Infused Documented by: Magnesium Oxide (Magnesium Oxide 400 Mg Tab) 400 mg PO HS [facility] Stop: 01/20/21 20:59 Last Admin: 12/23/20 20:57 Dose: 400 mg Documented by: Ondansetron HCl (Ondansetron Inj 2 Mg/Ml 2 Ml Vial) 4 mg IV Q6H PRN PRN Reason: Nausea Stop: 01/20/21 16:37 Pantoprazole Sodium (Pantoprazole 40 Mg Tab) [address] [facility] Stop: 01/20/21 20:59 Last Admin: 12/23/20 20:57 Dose: 40 mg Documented by: Polyethylene Glycol (Polyethylene (Miralax) 17 Gm Pack) 17 gm PO DAILY PRN PRN Reason: Constipation Stop: 01/20/21 16:37 Sodium Chloride (Sodium Chloride 0.65% Na Soln 45 Ml ([place])) 2 sprays NA TID PRN PRN Reason: Nasal Congestion Stop: 01/20/21 23:24 Last Admin: 12/22/20 00:08 Dose: 2 sprays Documented by: Sodium Chloride (Nss 30ml Flush, Days 1-5) 30 ml IV Q24H [facility] Stop: 12/25/20 13:01 Last Admin: 12/24/20 14:09 Dose: 30 ml Documented by: Vitamin D (Cholecalciferol 1,000 Units 25 Mcg Tab) 1,000 units PO HS [facility] Stop: 01/20/21 20:59 Last Admin: 12/23/20 20:56 Dose: 1,000 units Documented by:
[2020-12-24] MEDS: CHOLECALCIFEROL 1,000 UNITS 25 MCG TAB PO SCH (22:21)
[2020-12-24] MEDS: MAGNESIUM OXIDE 400 MG TAB PO SCH (22:21)
[2020-12-24] MEDS: PANTOprazole 40 MG TAB PO SCH (22:21)
[2020-12-24] MEDS: ASCORBIC ACID 500 MG TAB PO SCH (22:21)
[2020-12-25] MEDS: HYDROcodone/HOMATROPINE SYRUP 5MG/1.5MG 5ML UDP PO PRN ×2 (03:27→23:57)
[2020-12-25] MEDS: ENOXAPARIN INJ 40 MG/0.4 ML SYR SQ SCH ×2 (05:16→18:05)
[2020-12-25 06:17] LABS: Basophils # (auto) 0.03 K/uL (0-0.2); Basophils % (auto) 0.3 %; Hematocrit (blood only) 40.7 % (42-52); Hemoglobin 14.7 g/dL (14.0-18.0); Immature Granulocytes # (auto) 0.08 K/uL (0.00-0.02); Immature Granulocytes % (auto) 0.9 %; Lymphocytes % (auto) 16.5 %; Mean Corpuscular Hemoglobin 31.9 pg (25-34); Mean Corpuscular Hgb Conc 36.1 g/dL (32-36); Mean Corpuscular Volume 88.3 fL (80-100); Mean Platelet Volume 9.3 fL (7.4-10.4); Monocytes # (auto) 0.85 K/uL (0.11-0.59); Monocytes % (auto) 9.3 %; Neutrophils # (auto) 6.64 K/uL (1.4-6.5); Platelet Count 255 K/uL (130-400); RDW Coefficient of Variation 12.5 % (11.5-14.5); RDW Standard Deviation 40.2 fL (36.4-46.3); Red Blood Count 4.61 M/uL (4.7-6.1)
[2020-12-25 06:42] LABS: BUN Creatinine Ratio 36.3 (10-20); C Reactive Protein 1.46 mg/dl (0-0.29); Calcium 8.5 mg/dl (8.5-10.1); Creatinine Clr Calc Pharmacy 130.9 ml/min; Est GFR (African American) 119.9 ml/min; Est GFR (Non-African American) 103.4 ml/min; Potassium 3.4 mmol/L (3.5-5.1)
[2020-12-25] MEDS ORDERED: POTASSIUM CHLORIDE CRTAB 20 MEQ TABCR PO STA (07:10)
[2020-12-25] MEDS ORDERED: FUROSEMIDE 40 MG in SYRINGE 0 ML IV ONE (07:30)
[2020-12-25] MEDS: dexAMETHasone 6 MG in SYRINGE 0 ML IV SCH (08:10)
[2020-12-25] MEDS: BENZONATATE 100 MG CAPSULE PO SCH ×3 (08:10→21:13)
[2020-12-25] MEDS: guaiFENesin 600 MG TABCR PO SCH ×2 (08:10→21:14)
[2020-12-25] MEDS: REMDESIVIR 100mg: Days 2-5 IV SCH (13:47)
[2020-12-25] MEDS: NSS 30mL Flush, Days 1-5 IV SCH (15:11)
--- NOTE | 2020-12-25 17:06 | Hospitalist Progress Note ---
Date of Service December 25, 2020 Assessment & Plan (1) COVID-19: Plan: This is a 55yo M with a PMH of HTN and DLD who presents with viral symptoms that began 6 days ago and was found to be covid-19 positive on PCR test. Saturating 95% on 2L NC - will assess O2 saturation on room air Denies cough or SOB CXR with bibasilar airspace opacities are new from previous. Correlate clinically for evidence of an infectious/inflammatory pneumonitis No leukocytosis. Procal pending - no indication for antibiotics at this time No evidence of anaplasma on peripheral smear, lyme serology negative Continue dexamethasone, gentle IV fluids, supportive care Covid isolation precautions Has been complaining of cough and mild shortness of breath persisting We will add guaifenesin and Tessalon Perles Continue current treatment of remdesivir and dexamethasone IV fluid has been discontinued Chest x-ray did show worsening of pneumonia and he has been requiring up to 5 L of oxygen to maintain saturation He received 40 mg Lasix IV this morning CRP is mildly elevated at 2.01 but prolactin is normal We'll give another dose of Lasix 40 mg IV now 12/24/2020 Monitor PRP-remains stable CRP is improved little bit We will give another dose of 40 mg Lasix today 12/25/2020 We will involve pulmonology if there is no improvement by tomorrow-he is aware (2) Hyponatremia: Plan: Sodium 127 - hypotonic hypovolemic hyponatremia Continue gentle IV fluid resuscitation Monitor with daily BMP -sodium level is up at 133 Monitor PRP-sodium level is improved to 135 on 12/25/2020 (3) HTN (hypertension): Plan: Normotensive. Holding HCTZ while clinically dry. Continue lisinopril HS Blood pressure remains controlled Lasix will be given IV once daily (4) HLD (hyperlipidemia): Plan: Diet controlled DVT Ppx:SQ Lovenox Code status: FULL PCP: Didi Winters Dispo: Admitted to PCU Discussed with the mother Admission and Anticipated Discharge Date Admission Date: December 21, 2020 Subjective 12/22/2020 The patient was seen and examined in telemetry unit and Covid room He has been complaining of cough and shortness of breath No fever and no chills Still requiring 2 L of oxygen to maintain saturation Denies any other symptoms 12/23/2020 The patient was seen and examined in telemetry and Covid room He has been worse today with increasing shortness of breath but the cough is better He was in prone position for some time Denies any pain and/or nausea or vomiting 12/24/2020 The patient was seen and examined in telemetry unit and Covid room His condition has gotten worse since last night Chest x-ray did show worsening of pneumonia and requiring more oxygen to maintain saturation 12/25/2020 The patient was seen and examined in telemetry unit and Covid room He has been requiring high flow oxygen to maintain saturation especially when he moves around and tries to sit up He has been doing reasonably well with prone position and has been conversing normally Feels a little better compared with yesterday Review of Systems Review of Systems: All systems reviewed and are unremarkable except as noted below Respiratory: + cough and + dyspnea Physical Exam Physical Exam: Lying in bed in prone position without any apparent distress Constitutional: well developed, well nourished, + ill appearing and + obese Eyes: PERRL, conjunctivae normal, anicteric sclerae ENMT: external ear and nose normal, oropharynx normal Neck: trachea midline, no thyromegaly Respiratory: Auscultation: + diminished lung sounds and + crackles (Left base) Cardiovascular: Rate/Rhythm: regular rate and regular rhythm Heart Sounds: normal S1 and normal S2; no murmur Extremities: no edema Gastrointestinal (Abdomen): normal bowel sounds, soft, nontender, no hepatosplenomegaly Musculoskeletal: No acute arthritis in any joint Neurologic: PERRL, EOMI, accommodation nl, no face palsy, no dysarthria Psychiatric: A+Ox3, euthymic affect Lymphatic: no cervical or axillary lymphadenopathy Results & Data Results & Data ([facility]) Vital Signs (Past 12 Hours) Vital Signs Temp Pulse Pulse Pulse Resp BP BP 12/25/20 15:12 36.9 C 72 22 124/79 12/25/20 14:48 65 12/25/20 11:27 73 18 12/25/20 10:44 36.3 C L 73 19 126/66 12/25/20 09:00 12/25/20 08:59 86 18 12/25/20 07:44 60 12/25/20 07:00 36.7 C 96 H 22 121/57 L Pulse Ox Pulse Ox 12/25/20 15:12 95 12/25/20 14:48 07/24/21 11:27 98 12/25/20 10:44 91 12/25/20 09:00 30 L 12/25/20 08:59 93 12/25/20 07:44 12/25/20 07:00 89 L Laboratory Results Short CBC 12/25/20 Range/Units 05:56 WBC 9.10 (4.8-10.8) K/uL Hgb 14.7 (14.0-18.0) g/dL Hct 40.7 L (42-52) % Plt Count 255 (130-400) K/uL BMP 12/25/20 05:56 Sodium 135 L Potassium 3.4 L Chloride 102 Carbon Dioxide 29 BUN 28 H Creatinine 0.76 Glucose 121 H Calcium 8.5 Medications Administered Current Inpatient Medications Acetaminophen (Acetaminophen 325 Mg Tab) 650 mg PO Q4H PRN PRN Reason: Pain or Fever Stop: 01/20/21 16:37 Last Admin: 12/22/20 05:03 Dose: 650 mg Documented by: Ascorbic Acid (Ascorbic Acid 500 Mg Tab) 500 mg PO HS STEPHANIE Stop: 01/20/21 20:59 Last Admin: 12/24/20 22:21 Dose: 500 mg Documented by: Benzonatate (Benzonatate 100 Mg Capsule) 100 mg PO TID STEPHANIE Stop: 01/21/21 20:59 Last Admin: 12/25/20 13:47 Dose: 100 mg Documented by: Enoxaparin Sodium (Enoxaparin Inj 40 Mg/0.4 Ml Syr) 40 mg SQ Q12H STEPHANIE Stop: 01/20/21 17:59 Last Admin: 12/25/20 05:16 Dose: 40 mg Documented by: Guaifenesin (Guaifenesin 600 Mg Tabcr) 1,200 mg PO Q12 STEPHANIE Stop: 01/21/21 20:59 Last Admin: 12/25/20 08:10 Dose: 1,200 mg Documented by: Hydrocodone Bit/Homatropine Methylb (Hydrocodone/Homatropine Syrup 5mg/1.5mg 5ml Udp) 5 ml PO Q6H PRN PRN Reason: Cough Stop: 01/08/21 02:48 Last Admin: 12/25/20 03:27 Dose: 5 ml Documented by: Dexamethasone 6 mg/ Syringe 1.5 mls @ 1 mls/min IV DAILY STEPHANIE Stop: 01/01/21 08:59 Last Admin: 12/25/20 08:10 Dose: 1 mls/min Documented by: Magnesium Oxide (Magnesium Oxide 400 Mg Tab) 400 mg PO HS STEPHANIE Stop: 01/20/21 20:59 Last Admin: 12/24/20 22:21 Dose: 400 mg Documented by: Ondansetron HCl (Ondansetron Inj 2 Mg/Ml 2 Ml Vial) 4 mg IV Q6H PRN PRN Reason: Nausea Stop: 01/20/21 16:37 Pantoprazole Sodium (Pantoprazole 40 Mg Tab) 40 mg PO STEPHANIE Stop: 01/20/21 20:59 Last Admin: 12/24/20 22:21 Dose: 40 mg Documented by: Polyethylene Glycol (Polyethylene (Miralax) 17 Gm Pack) 17 gm PO DAILY PRN PRN Reason: Constipation Stop: 01/20/21 16:37 Sodium Chloride (Sodium Chloride 0.65% Na Soln 45 Ml ([place])) 2 sprays NA TID PRN PRN Reason: Nasal Congestion Stop: 01/20/21 23:24 Last Admin: 12/22/20 00:08 Dose: 2 sprays Documented by: Vitamin D (Cholecalciferol 1,000 Units 25 Mcg Tab) 1,000 units PO STEPHANIE Stop: 01/20/21 20:59 Last Admin: 12/24/20 22:21 Dose: 1,000 units Documented by:
[2020-12-25] MEDS: CHOLECALCIFEROL 1,000 UNITS 25 MCG TAB PO SCH (21:13)
[2020-12-25] MEDS: MAGNESIUM OXIDE 400 MG TAB PO SCH (21:14)
[2020-12-25] MEDS: PANTOprazole 40 MG TAB PO SCH (21:14)
[2020-12-25] MEDS: ASCORBIC ACID 500 MG TAB PO SCH (21:15)
[2020-12-26] MEDS: ENOXAPARIN INJ 40 MG/0.4 ML SYR SQ SCH ×2 (05:26→17:09)
[2020-12-26 05:46] LABS: Basophils # (auto) 0.02 K/uL (0-0.2); Basophils % (auto) 0.1 %; Eosinophils # (auto) 0.02 K/uL (0-0.5); Eosinophils % (auto) 0.1 %; Hematocrit (blood only) 38.8 % (42-52); Hemoglobin 13.8 g/dL (14.0-18.0); Immature Granulocytes # (auto) 0.13 K/uL (0.00-0.02); Immature Granulocytes % (auto) 0.9 %; Lymphocytes # (auto) 1.76 K/uL (1.2-3.4); Lymphocytes % (auto) 12.8 %; Mean Corpuscular Hemoglobin 31.7 pg (25-34); Mean Corpuscular Hgb Conc 35.6 g/dL (32-36); Mean Corpuscular Volume 89.2 fL (80-100); Mean Platelet Volume 8.9 fL (7.4-10.4); Monocytes # (auto) 0.88 K/uL (0.11-0.59); Monocytes % (auto) 6.4 %; Neutrophils # (auto) 10.98 K/uL (1.4-6.5); Neutrophils % (auto) 79.7 %; Platelet Count 286 K/uL (130-400); RDW Coefficient of Variation 12.4 % (11.5-14.5); RDW Standard Deviation 40.3 fL (36.4-46.3); Red Blood Count 4.35 M/uL (4.7-6.1); White Blood Count 13.79 K/uL (4.8-10.8)
[2020-12-26 06:25] LABS: Albumin Level 2.9 gm/dl (3.4-5.0); BUN Creatinine Ratio 35.9 (10-20); Calcium 8.6 mg/dl (8.5-10.1); Creatinine Clr Calc Pharmacy 122.7 ml/min; Est GFR (African American) 116.8 ml/min; Est GFR (Non-African American) 100.8 ml/min; Magnesium 2.3 mg/dl (1.8-2.4); Potassium 3.9 mmol/L (3.5-5.1)
[2020-12-26 06:27] LABS: Albumin Globulin Ratio 0.8 (0.9-2); Bilirubin,Total 1.2 mg/dl (0.2-1); Globulin 3.5 gm/dl (2.5-4.0); Phosphorus 2.9 mg/dl (2.5-4.9); Total Protein 6.4 gm/dl (6.4-8.2)
[2020-12-26] MEDS ORDERED: FUROSEMIDE 40 MG in SYRINGE 0 ML IV ONE (08:30)
[2020-12-26] MEDS: dexAMETHasone 6 MG in SYRINGE 0 ML IV SCH (08:43)
[2020-12-26] MEDS: HYDROcodone/HOMATROPINE SYRUP 5MG/1.5MG 5ML UDP PO PRN ×2 (08:43→16:39)
[2020-12-26] MEDS: BENZONATATE 100 MG CAPSULE PO SCH ×3 (08:43→20:27)
[2020-12-26] MEDS: guaiFENesin 600 MG TABCR PO SCH ×2 (08:44→20:26)
[2020-12-26] MEDS ORDERED: ALBUT/IPRATROP 3MG/0.5MG NEB 3 ML VIAL NEB PRN (09:01)
--- NOTE | 2020-12-26 14:48 | Hospitalist Progress Note ---
Date of Service December 26, 2020 Assessment & Plan (1) COVID-19: Plan: This is a 55yo M with a PMH of HTN and DLD who presents with viral symptoms that began 6 days ago and was found to be covid-19 positive on PCR test. Saturating 95% on 2L NC - will assess O2 saturation on room air Denies cough or SOB CXR with bibasilar airspace opacities are new from previous. Correlate clinically for evidence of an infectious/inflammatory pneumonitis No leukocytosis. Procal pending - no indication for antibiotics at this time No evidence of anaplasma on peripheral smear, lyme serology negative Continue dexamethasone, gentle IV fluids, supportive care Covid isolation precautions Has been complaining of cough and mild shortness of breath persisting We will add guaifenesin and Tessalon Perles Continue current treatment of remdesivir and dexamethasone IV fluid has been discontinued Chest x-ray did show worsening of pneumonia and he has been requiring up to 5 L of oxygen to maintain saturation He received 40 mg Lasix IV this morning CRP is mildly elevated at 2.01 but prolactin is normal We'll give another dose of Lasix 40 mg IV now 12/24/2020 Monitor PRP-remains stable CRP is improved little bit We will give another dose of 40 mg Lasix today 12/25/2020 Remains stable but is still requiring high flow oxygen to maintain saturation. Will check CRP tomorrow and if elevated will involve pulmonary for possible Tocilizumab administration We will administer nebulized bronchodilator as needed for wheezing (2) Hyponatremia: Plan: Sodium 127 - hypotonic hypovolemic hyponatremia Continue gentle IV fluid resuscitation Monitor with daily BMP -sodium level is up at 133 Monitor PRP-sodium level is improved to 135 on 12/25/2020 (3) HTN (hypertension): Plan: Normotensive. Holding HCTZ while clinically dry. Continue lisinopril HS Blood pressure remains controlled Lasix will be given IV once daily Blood pressure remains stable (4) HLD (hyperlipidemia): Plan: Diet controlled DVT Ppx:SQ Lovenox Code status: FULL PCP: Didi Winters Dispo: Admitted to PCU Discussed with the mother Admission and Anticipated Discharge Date Admission Date: December 21, 2020 Subjective 12/22/2020 The patient was seen and examined in telemetry unit and Covid room He has been complaining of cough and shortness of breath No fever and no chills Still requiring 2 L of oxygen to maintain saturation Denies any other symptoms 12/23/2020 The patient was seen and examined in telemetry and Covid room He has been worse today with increasing shortness of breath but the cough is better He was in prone position for some time Denies any pain and/or nausea or vomiting 12/24/2020 The patient was seen and examined in telemetry unit and Covid room His condition has gotten worse since last night Chest x-ray did show worsening of pneumonia and requiring more oxygen to maintain saturation 12/25/2020 The patient was seen and examined in telemetry unit and Covid room He has been requiring high flow oxygen to maintain saturation especially when he moves around and tries to sit up He has been doing reasonably well with prone position and has been conversing normally Feels a little better compared with yesterday 12/26/2020 The patient was seen and examined in telemetry unit and Covid room He has been feeling better but worse as he is requiring more oxygen to maintain saturation Denies any chest pain and or palpitation but has profound cough Review of Systems Review of Systems: All systems reviewed and are unremarkable except as noted below Respiratory: + cough and + dyspnea Physical Exam Physical Exam: Lying in bed in prone position without any apparent distress Constitutional: well developed, well nourished, + ill appearing and + obese Eyes: PERRL, conjunctivae normal, anicteric sclerae ENMT: external ear and nose normal, oropharynx normal Neck: trachea midline, no thyromegaly Respiratory: Auscultation: + diminished lung sounds (Bilaterally with occasional crackles) Cardiovascular: Rate/Rhythm: regular rate and regular rhythm Heart Sounds: normal S1 and normal S2; no murmur Extremities: no edema Gastrointestinal (Abdomen): normal bowel sounds, soft, nontender, no hepatosplenomegaly Neurologic: PERRL, EOMI, accommodation nl, no face palsy, no dysarthria Psychiatric: A+Ox3, euthymic affect Lymphatic: no cervical or axillary lymphadenopathy Results & Data Results & Data ([facility]) Vital Signs (Past 12 Hours) Vital Signs Temp Pulse Pulse Pulse Pulse Resp BP 12/26/20 11:35 36.8 C 108 H 28 H 12/26/20 10:00 104 H 20 12/26/20 09:51 92 H 20 12/26/20 09:50 63 12/26/20 09:00 12/26/20 07:01 62 16 12/26/20 07:00 36.5 C 87 24 12/26/20 05:26 36.8 C 67 18 99/60 L BP Pulse Ox Pulse Ox 12/26/20 11:35 136/80 95 12/26/20 10:00 93 12/26/20 09:51 90 12/26/20 09:50 12/26/20 09:00 90 12/26/20 07:01 97 12/26/20 07:00 133/82 90 12/26/20 05:26 90 Laboratory Results Short CBC 12/26/20 Range/Units 05:11 WBC 13.79 H (4.8-10.8) K/uL Hgb 13.8 L (14.0-18.0) g/dL Hct 38.8 L (42-52) % Plt Count 286 (130-400) K/uL BMP 12/26/20 05:11 Sodium 136 Potassium 3.9 Chloride 102 Carbon Dioxide 32 BUN 29 H Creatinine 0.81 Glucose 106 H Calcium 8.6 Liver Function 12/26/20 Range/Units 05:11 Total Bilirubin 1.2 H (0.2-1) mg/dl AST 59 H (15-37) U/L ALT 70 (12-78) U/L Alkaline Phosphatase 53 (45-117) U/L Albumin 2.9 L (3.4-5.0) gm/dl Medications Administered Current Inpatient Medications Acetaminophen (Acetaminophen 325 Mg Tab) 650 mg PO Q4H PRN PRN Reason: Pain or Fever Stop: 01/20/21 16:37 Last Admin: 12/22/20 05:03 Dose: 650 mg Documented by: Albuterol (Albut/Ipratrop 3mg/0.5mg Neb 3 Ml Vial) 3 ml NEB Q4R PRN PRN Reason: Wheezing Stop: 01/25/21 10:59 Last Admin: 12/26/20 09:49 Dose: 3 ml Documented by: Ascorbic Acid (Ascorbic Acid 500 Mg Tab) 500 mg PO HS STEPHANIE Stop: 01/20/21 20:59 Last Admin: 12/25/20 21:15 Dose: 500 mg Documented by: Benzonatate (Benzonatate 100 Mg Capsule) 100 mg PO TID STEPHANIE Stop: 01/21/21 20:59 Last Admin: 12/26/20 14:27 Dose: 100 mg Documented by: Enoxaparin Sodium (Enoxaparin Inj 40 Mg/0.4 Ml Syr) 40 mg SQ Q12H STEPHANIE Stop: 01/20/21 17:59 Last Admin: 12/26/20 05:26 Dose: 40 mg Documented by: Guaifenesin (Guaifenesin 600 Mg Tabcr) 1,200 mg PO Q12 STEPHANIE Stop: 01/21/21 20:59 Last Admin: 12/26/20 08:44 Dose: 1,200 mg Documented by: Hydrocodone Bit/Homatropine Methylb (Hydrocodone/Homatropine Syrup 5mg/1.5mg 5ml Udp) 5 ml PO Q6H PRN PRN Reason: Cough Stop: 01/08/21 02:48 Last Admin: 12/26/20 08:43 Dose: 5 ml Documented by: Dexamethasone 6 mg/ Syringe 1.5 mls @ 1 mls/min IV DAILY STEPHANIE Stop: 01/01/21 08:59 Last Admin: 12/26/20 08:43 Dose: 1 mls/min Documented by: Magnesium Oxide (Magnesium Oxide 400 Mg Tab) 400 mg PO HS STEPHANIE Stop: 01/20/21 20:59 Last Admin: 12/25/20 21:14 Dose: 400 mg Documented by: Ondansetron HCl (Ondansetron Inj 2 Mg/Ml 2 Ml Vial) 4 mg IV Q6H PRN PRN Reason: Nausea Stop: 01/20/21 16:37 Pantoprazole Sodium (Pantoprazole 40 Mg Tab) 40 mg PO HS STEPHANIE Stop: 01/20/21 20:59 Last Admin: 12/25/20 21:14 Dose: 40 mg Documented by: Polyethylene Glycol (Polyethylene (Miralax) 17 Gm Pack) 17 gm PO DAILY PRN PRN Reason: Constipation Stop: 01/20/21 16:37 Sodium Chloride (Sodium Chloride 0.65% Na Soln 45 Ml ([place])) 2 sprays NA TID PRN PRN Reason: Nasal Congestion Stop: 01/20/21 23:24 Last Admin: 12/22/20 00:08 Dose: 2 sprays Documented by: Vitamin D (Cholecalciferol 1,000 Units 25 Mcg Tab) 1,000 units PO HS STEPHANIE Stop: 01/20/21 20:59 Last Admin: 12/25/20 21:13 Dose: 1,000 units Documented by:
[2020-12-26] MEDS: ACETAMINOPHEN 325 MG TAB PO PRN (16:39)
[2020-12-26] MEDS: ASCORBIC ACID 500 MG TAB PO SCH (20:27)
[2020-12-26] MEDS: PANTOprazole 40 MG TAB PO SCH (20:27)
[2020-12-26] MEDS: CHOLECALCIFEROL 1,000 UNITS 25 MCG TAB PO SCH (20:27)
[2020-12-26] MEDS: MAGNESIUM OXIDE 400 MG TAB PO SCH (20:27)
[2020-12-27] MEDS: ACETAMINOPHEN 325 MG TAB PO PRN (00:02)
[2020-12-27] MEDS: ENOXAPARIN INJ 40 MG/0.4 ML SYR SQ SCH ×2 (05:27→17:31)
[2020-12-27 06:39] LABS: Basophils # (auto) 0.01 K/uL (0-0.2); Basophils % (auto) 0.1 %; Eosinophils # (auto) 0.05 K/uL (0-0.5); Eosinophils % (auto) 0.5 %; Hematocrit (blood only) 38.8 % (42-52); Hemoglobin 13.7 g/dL (14.0-18.0); Immature Granulocytes # (auto) 0.18 K/uL (0.00-0.02); Immature Granulocytes % (auto) 1.8 %; Lymphocytes # (auto) 1.83 K/uL (1.2-3.4); Lymphocytes % (auto) 18.5 %; Mean Corpuscular Hemoglobin 31.7 pg (25-34); Mean Corpuscular Hgb Conc 35.3 g/dL (32-36); Mean Corpuscular Volume 89.8 fL (80-100); Mean Platelet Volume 8.6 fL (7.4-10.4); Monocytes # (auto) 0.39 K/uL (0.11-0.59); Neutrophils # (auto) 7.41 K/uL (1.4-6.5); Neutrophils % (auto) 75.1 %; Platelet Count 342 K/uL (130-400); RDW Coefficient of Variation 12.4 % (11.5-14.5); RDW Standard Deviation 41.4 fL (36.4-46.3); Red Blood Count 4.32 M/uL (4.7-6.1); White Blood Count 9.87 K/uL (4.8-10.8)
[2020-12-27 07:24] LABS: BUN Creatinine Ratio 30.3 (10-20); Calcium 8.8 mg/dl (8.5-10.1); Creatinine Clr Calc Pharmacy 125.4 ml/min; Est GFR (Non-African American) 101.8 ml/min; Magnesium 2.5 mg/dl (1.8-2.4); Potassium 3.5 mmol/L (3.5-5.1)
[2020-12-27 07:28] LABS: C Reactive Protein 5.2 mg/dl (0-0.29); Phosphorus 3.5 mg/dl (2.5-4.9)
[2020-12-27] MEDS: BENZONATATE 100 MG CAPSULE PO SCH ×3 (07:41→21:32)
[2020-12-27] MEDS: guaiFENesin 600 MG TABCR PO SCH ×2 (07:41→21:32)
[2020-12-27] MEDS: dexAMETHasone 6 MG in SYRINGE 0 ML IV SCH (07:41)
--- NOTE | 2020-12-27 09:41 | Pulmonary Consultation ---
Date of Consultation December 27, 2020 Assessment & Plan (1) Acute respiratory failure with hypoxia: (2) Pneumonia due to COVID-19 virus: Chest x-ray 12/21/2020 personally reviewed: Portable film, fair inspiratory effort, diffuse alveolar opacities appreciated bilaterally, increased cardiac silhouette, blunting of bilateral costophrenic angles. --Acute hypoxic respiratory failure Secondary to multilobar pneumonia from COVID-19 COVID-19 PCR + 12/21/2020, influenza A/B negative Procalcitonin 0.08 CRP: 2.1 --> 1.46 --> 5.2 Patient has completed the course of remdesivir Continue with dexamethasone for total of 10 days Continue with awake proning O2 supplementation to keep O2 saturation between 90-92% Continue with incentive spirometry along with flutter valve Plan: In/Out: -2 L, urine output 2.5 L Patient is +1.9 L since coming to the hospital Would recommend to continue with diuretics to keep the patient negative balance Patient CRP is less than 7.5, is past the 72 hours since admission. Patient will not be a candidate for Tocilizumab I will increase dexamethasone to 10 mg on a daily basis to complete a total 10- day course. Case was discussed with Dr. Forbes, pharmacist and Joe RN Pulmonary will continue to follow. Please note the above document was generated using voice recognition software. It may contain grammatical, syntax or spelling errors.Any formal questions or concerns about the content, text or information contained within the body of this dictation should be directly addressed to the provider for clarification. History of Present Illness Attending Physician: Thais Forbes MD History of Present Illness 55-year-old male who was admitted to the hospital on 12/21/2020 because of generalized weakness nausea. Past medical history: Hypertension, dyslipidemia Patient was found to be COVID-19 positive. He was started on dexamethasone as well as remdesivir Pulmonary were consulted because of increasing need of his oxygen. At the time of examination patient was saturating 95% on 30 L, 40% high flow Patient did desaturate to 89% while talking to me. He denies any chest pain, does complain of cough is able to bring up phlegm especially when using flutter valve. Has been using incentive spirometry is able to go up to 1500 mL. Denies any headache, no blurry vision. Denies any hemoptysis. Patient has not been vaccinated against COVID-19. Allergies Allergy/AdvReac Type Severity Reaction Status Date / Time No Known Allergies Allergy Unknown PT DENIES Verified 12/21/20 13:02 ALL ALLERGIES Home Medications Medication Instructions Recorded Confirmed Type diphenhydramine HCl 25 mg capsule 25 mg PO HS 08/07/19 12/21/20 History (Benadryl) hydrochlorothiazide 25 mg tablet 25 mg PO HS 08/07/19 12/21/20 History lisinopril 20 mg tablet 20 mg PO HS 08/07/19 12/21/20 History omeprazole magnesium 20 mg 20 mg PO HS 08/07/19 12/21/20 History tablet,delayed release (Prilosec OTC) ascorbic acid (vitamin C) 1,000 mg 500 mg PO HS 12/19/20 12/21/20 History tablet (Vitamin C) cholecalciferol (vitamin D3) 25 25 mcg PO HS 12/19/20 12/21/20 History mcg (1,000 unit) tablet (Vitamin D3) magnesium 250 mg tablet 250 mg PO HS 12/19/20 12/21/20 History ondansetron 4 mg disintegrating 4 mg PO Q6H PRN #15 tab 12/19/20 12/21/20 Rx tablet selenium 200 mcg tablet 200 mcg PO HS 12/19/20 12/21/20 History azithromycin 250 mg tablet 250 mg PO DAILY 12/21/20 12/21/20 History (Zithromax) omega-3 fatty acids-vitamin E 1 cap PO HS 12/21/20 12/21/20 History 1,000 mg capsule zinc 10 mg tablet 10 mg PO DAILY 12/21/20 12/21/20 History Patient History Medical History HLD (hyperlipidemia) HTN (hypertension) Surgical History H/O inguinal hernia repair H/O knee surgery H/O vasectomy Family History Other Depression Diabetes Hypertension Social History Smoking Status: Former smoker Tobacco Type: Cigarettes Smoking End Date: 25 years ago or more; Hx Alcohol Use: Yes Alcohol type: beer, wine and hard liquor Alcohol Intake Frequency: Monthly or Less Hx Substance Use: No Preferred Language: Faroese Communication Ability: Effective [employer] Required: No Beliefs That Will Affect Care: None Current Living Situation: Spouse Current Living Situation Comment: Lives with Other Information That Helps Us Care for You: No Feels Safe at Home: Yes Safety Concerns: Feels Safe At This Time Assistive Devices: Oxygen - Continuous Assistive Devices Comment: Wears "readers" and prescription driving glasses Review of Systems Review of Systems: All systems reviewed & are unremarkable except as noted in HPI & below Physical Exam Physical Exam: Constitutional: No acute distress HEENT: EOMI, PERRLA Respiratory system: Decreased air entry bilaterally, no wheeze, no rhonchi, positive crackles bilaterally CVS: S1-S2 positive, no murmurs or gallops Abdomen: Soft, nontender, nondistended, positive bowel sounds x4, obese Extremities: +2 pulses bilaterally radialis/ dorsalis pedis, no cyanosis, no edema Neuro: Awake alert oriented x3 Psych: Normal mood and affect G/U: No Russ Skin: no rashes, warm and dry Lymphatic: no cervical or axillary lymphadenopathy Results & Data Results & Data ([facility]) Vital Signs (Past 12 Hours) Vital Signs Temp Pulse Pulse Resp BP Pulse Ox 12/27/20 08:28 36.9 C 82 19 132/77 91 12/27/20 08:00 67 12/27/20 07:43 78 21 94 12/27/20 05:24 36.8 C 73 107/66 94 12/27/20 02:58 68 16 98 12/27/20 00:00 62 12/26/20 23:56 67 125/84 96 12/26/20 22:10 63 18 99 12/27/20 06:19 12/27/20 06:19 PG Care Time/CCT Total # of Minutes Spent Total Time Spent with Patient: Total time spent is greater than 50% in coordination of care (as documented) at patient's floor/unit and/or counseling patient: [place] [address] Inpt Consult Level 4 Patient Type New Diagnoses Acute respiratory failure with hypoxia J96.01 Pneumonia due to COVID-19 virus U07.1; J12.82
[2020-12-27] MEDS ORDERED: dexAMETHasone 4 MG in SYRINGE 0 ML IV ONE (09:45)
[2020-12-27] MEDS ORDERED: FUROSEMIDE 40 MG in SYRINGE 0 ML IV ONE (10:00)
--- NOTE | 2020-12-27 16:41 | Hospitalist Progress Note ---
Date of Service December 27, 2020 Assessment & Plan (1) COVID-19: Plan: This is a 55yo M with a PMH of HTN and DLD who presents with viral symptoms that began 6 days ago and was found to be covid-19 positive on PCR test. Saturating 95% on 2L NC - will assess O2 saturation on room air Denies cough or SOB CXR with bibasilar airspace opacities are new from previous. Correlate clinically for evidence of an infectious/inflammatory pneumonitis No leukocytosis. Procal pending - no indication for antibiotics at this time No evidence of anaplasma on peripheral smear, lyme serology negative Continue dexamethasone, gentle IV fluids, supportive care Covid isolation precautions Has been complaining of cough and mild shortness of breath persisting We will add guaifenesin and Tessalon Perles Continue current treatment of remdesivir and dexamethasone IV fluid has been discontinued Chest x-ray did show worsening of pneumonia and he has been requiring up to 5 L of oxygen to maintain saturation He received 40 mg Lasix IV this morning CRP is mildly elevated at 2.01 but prolactin is normal We'll give another dose of Lasix 40 mg IV now 12/24/2020 Monitor PRP-remains stable CRP is improved little bit We will give another dose of 40 mg Lasix today 12/25/2020 Remains stable but is still requiring high flow oxygen to maintain saturation. Will check CRP tomorrow and if elevated will involve pulmonary for possible Tocilizumab administration We will administer nebulized bronchodilator as needed for wheezing Appreciate pulmonary input and recommendation-we will continue current treatment Lasix to keep negative balance (2) Hyponatremia: Plan: Sodium 127 - hypotonic hypovolemic hyponatremia Continue gentle IV fluid resuscitation Monitor with daily BMP -sodium level is up at 133 Monitor PRP-sodium level is improved to 135 on 12/25/2020 Hyponatremia is corrected (3) HTN (hypertension): Plan: Normotensive. Holding HCTZ while clinically dry. Continue lisinopril HS Blood pressure remains controlled Lasix will be given IV once daily Blood pressure remains stable (4) HLD (hyperlipidemia): Plan: Diet controlled DVT Ppx:SQ Lovenox Code status: FULL PCP: Didi Winters Dispo: Admitted to PCU Discussed with the mother Admission and Anticipated Discharge Date Admission Date: December 21, 2020 Subjective 12/22/2020 The patient was seen and examined in telemetry unit and Covid room He has been complaining of cough and shortness of breath No fever and no chills Still requiring 2 L of oxygen to maintain saturation Denies any other symptoms 12/23/2020 The patient was seen and examined in telemetry and Covid room He has been worse today with increasing shortness of breath but the cough is better He was in prone position for some time Denies any pain and/or nausea or vomiting 12/24/2020 The patient was seen and examined in telemetry unit and Covid room His condition has gotten worse since last night Chest x-ray did show worsening of pneumonia and requiring more oxygen to maintain saturation 12/25/2020 The patient was seen and examined in telemetry unit and Covid room He has been requiring high flow oxygen to maintain saturation especially when he moves around and tries to sit up He has been doing reasonably well with prone position and has been conversing normally Feels a little better compared with yesterday 12/26/2020 The patient was seen and examined in telemetry unit and Covid room He has been feeling better but worse as he is requiring more oxygen to maintain saturation Denies any chest pain and or palpitation but has profound cough 12/27/2020 The patient was seen and examined in telemetry unit in Covid room He has been stable Still requiring high flow oxygen to maintain saturation and saturation drops with any exertion Denies any other symptoms Review of Systems Review of Systems: All systems reviewed and are unremarkable except as noted below Respiratory: + cough and + dyspnea Physical Exam Physical Exam: Lying in bed in prone position without any apparent distress Constitutional: well developed, well nourished, + ill appearing and + obese Eyes: PERRL, conjunctivae normal, anicteric sclerae ENMT: external ear and nose normal, oropharynx normal Neck: trachea midline, no thyromegaly Respiratory: Auscultation: + diminished lung sounds (Bilaterally with occasional crackles) Cardiovascular: Rate/Rhythm: regular rate and regular rhythm Heart Sounds: normal S1 and normal S2; no murmur Extremities: no edema Gastrointestinal (Abdomen): normal bowel sounds, soft, nontender, no hepatosplenomegaly Neurologic: PERRL, EOMI, accommodation nl, no face palsy, no dysarthria Psychiatric: A+Ox3, euthymic affect Lymphatic: no cervical or axillary lymphadenopathy Results & Data Results & Data ([facility]) Vital Signs (Past 12 Hours) Vital Signs Temp Pulse Pulse Resp BP Pulse Ox Pulse Ox 12/27/20 15:18 78 18 95 12/27/20 12:39 36.9 C 97 H 19 133/79 12/27/20 11:20 82 95 12/27/20 09:00 96 12/27/20 08:28 36.9 C 82 19 132/77 91 12/27/20 08:00 67 12/27/20 07:43 78 21 94 12/27/20 05:24 36.8 C 73 107/66 94 Laboratory Results Short CBC 12/27/20 Range/Units 06:19 WBC 9.87 (4.8-10.8) K/uL Hgb 13.7 L (14.0-18.0) g/dL Hct 38.8 L (42-52) % Plt Count 342 (130-400) K/uL BMP 12/27/20 06:19 Sodium 134 L Potassium 3.5 Chloride 99 Carbon Dioxide 31 BUN 24 H Creatinine 0.79 Glucose 112 H Calcium 8.8 Medications Administered Current Inpatient Medications Acetaminophen (Acetaminophen 325 Mg Tab) 650 mg PO Q4H PRN PRN Reason: Pain or Fever Stop: 01/20/21 16:37 Last Admin: 12/27/20 00:02 Dose: 650 mg Documented by: Albuterol (Albut/Ipratrop 3mg/0.5mg Neb 3 Ml Vial) 3 ml NEB Q4R PRN PRN Reason: Wheezing Stop: 01/25/21 10:59 Last Admin: 12/26/20 09:49 Dose: 3 ml Documented by: Ascorbic Acid (Ascorbic Acid 500 Mg Tab) 500 mg PO HS STEPHANIE Stop: 01/20/21 20:59 Last Admin: 12/26/20 20:27 Dose: 500 mg Documented by: Benzonatate (Benzonatate 100 Mg Capsule) 100 mg PO TID STEPHANIE Stop: 01/21/21 20:59 Last Admin: 12/27/20 13:37 Dose: 100 mg Documented by: Enoxaparin Sodium (Enoxaparin Inj 40 Mg/0.4 Ml Syr) 40 mg SQ Q12H STEPHANIE Stop: 01/20/21 17:59 Last Admin: 12/27/20 05:27 Dose: 40 mg Documented by: Guaifenesin (Guaifenesin 600 Mg Tabcr) 1,200 mg PO Q12 STEPHANIE Stop: 01/21/21 20:59 Last Admin: 12/27/20 07:41 Dose: 1,200 mg Documented by: Hydrocodone Bit/Homatropine Methylb (Hydrocodone/Homatropine Syrup 5mg/1.5mg 5ml Udp) 5 ml PO Q6H PRN PRN Reason: Cough Stop: 01/08/21 02:48 Last Admin: 12/26/20 16:39 Dose: 5 ml Documented by: Dexamethasone 10 mg/ Syringe 2.5 mls @ 1 mls/min IV DAILY STEPHANIE Stop: 12/31/20 09:03 Magnesium Oxide (Magnesium Oxide 400 Mg Tab) 400 mg PO HS STEPHANIE Stop: 01/20/21 20:59 Last Admin: 12/26/20 20:27 Dose: 400 mg Documented by: Ondansetron HCl (Ondansetron Inj 2 Mg/Ml 2 Ml Vial) 4 mg IV Q6H PRN PRN Reason: Nausea Stop: 01/20/21 16:37 Pantoprazole Sodium (Pantoprazole 40 Mg Tab) 40 mg PO STEPHANIE Stop: 01/20/21 20:59 Last Admin: 12/26/20 20:27 Dose: 40 mg Documented by: Polyethylene Glycol (Polyethylene (Miralax) 17 Gm Pack) 17 gm PO DAILY PRN PRN Reason: Constipation Stop: 01/20/21 16:37 Sodium Chloride (Sodium Chloride 0.65% Na Soln 45 Ml ([place])) 2 sprays NA TID PRN PRN Reason: Nasal Congestion Stop: 01/20/21 23:24 Last Admin: 12/22/20 00:08 Dose: 2 sprays Documented by: Vitamin D (Cholecalciferol 1,000 Units 25 Mcg Tab) 1,000 units PO HS STEPHANIE Stop: 01/20/21 20:59 Last Admin: 12/26/20 20:27 Dose: 1,000 units Documented by:
[2020-12-27] MEDS: PANTOprazole 40 MG TAB PO SCH (21:32)
[2020-12-27] MEDS: MAGNESIUM OXIDE 400 MG TAB PO SCH (21:32)
[2020-12-27] MEDS: CHOLECALCIFEROL 1,000 UNITS 25 MCG TAB PO SCH (21:32)
[2020-12-27] MEDS: ASCORBIC ACID 500 MG TAB PO SCH (21:32)
[2020-12-28] MEDS: ENOXAPARIN INJ 40 MG/0.4 ML SYR SQ SCH ×2 (05:17→17:30)
[2020-12-28 08:14] LABS: BUN Creatinine Ratio 31.3 (10-20); Creatinine Clr Calc Pharmacy 137.7 ml/min; Est GFR (African American) 122.6 ml/min; Est GFR (Non-African American) 105.8 ml/min; Potassium 3.6 mmol/L (3.5-5.1)
[2020-12-28] MEDS: guaiFENesin 600 MG TABCR PO SCH ×2 (08:51→21:57)
[2020-12-28] MEDS: BENZONATATE 100 MG CAPSULE PO SCH ×3 (08:51→21:56)
[2020-12-28] MEDS: dexAMETHasone 10 MG in SYRINGE 0 ML IV SCH (08:51)
--- NOTE | 2020-12-28 10:50 | Pulmonology Progress Note ---
Date of Service December 28, 2020 Assessment & Plan (1) Acute respiratory failure with hypoxia: (2) Pneumonia due to COVID-19 virus: Plan: Chest x-ray 12/21/2020 personally reviewed: Portable film, fair inspiratory effort, diffuse alveolar opacities appreciated bilaterally, increased cardiac silhouette, blunting of bilateral costophrenic angles. --Acute hypoxic respiratory failure Secondary to multilobar pneumonia from COVID-19 COVID-19 PCR + 12/21/2020, influenza A/B negative Procalcitonin 0.08 CRP: 2.1 --> 1.46 --> 5.2 Patient has completed the course of remdesivir Continue with dexamethasone for total of 10 days Continue with awake proning O2 supplementation to keep O2 saturation between 90-92% Continue with incentive spirometry along with flutter valve Plan: In/Out: -2 .6 L, urine output 3.3 L The patient of high flow nasal cannula. The patient again desaturates can go back to high flow and give minimal 35 L. Continue with incentive spirometry and flutter valve Pulmonary will follow peripherally. Please call directly with any questions. Case discussed with RN Joe and RT Please note the above document was generated using voice recognition software. It may contain grammatical, syntax or spelling errors.Any formal questions or concerns about the content, text or information contained within the body of this dictation should be directly addressed to the provider for clarification. Admission and Anticipated Discharge Date Admission Date: December 21, 2020 Subjective Patient seen through the glass window. No acute distress. Saturating 93-94% on 30%, 30 L Review of Systems Review of Systems: Other Physical Exam Physical Exam: Patient not examined due to coronavirus restrictions and attempts to minimize exposure to staff and consider PPE. Please refer to the hospitalist exam for complete details. Results & Data Results & Data ([facility]) Vital Signs (Past 12 Hours) Vital Signs Temp Pulse Pulse Resp BP Pulse Ox Pulse Ox 12/28/20 09:00 96 12/28/20 08:00 57 L 12/28/20 03:54 36.8 C 67 20 115/67 96 12/28/20 03:04 78 18 95 12/28/20 00:29 71 12/27/20 23:15 36.9 C 82 18 131/79 94 12/27/20 22:53 67 14 96 12/27/20 06:19 12/28/20 06:55 PG Care Time/CCT Total # of Minutes Spent Total Time Spent with Patient: Total time spent is greater than 50% in coordination of care (as documented) at patient's floor/unit and/or counseling patient: Coding Level of Care Code 53961 Subseq Hosp Care Lvl 2 Diagnoses Acute respiratory failure with hypoxia J96.01 Pneumonia due to COVID-19 virus U07.1; J12.82
--- NOTE | 2020-12-28 13:49 | Hospitalist Progress Note ---
Date of Service December 28, 2020 Assessment & Plan (1) COVID-19: Plan: This is a 55yo M with a PMH of HTN and DLD who presents with viral symptoms that began 6 days ago and was found to be covid-19 positive on PCR test. Saturating 95% on 2L NC - will assess O2 saturation on room air Denies cough or SOB CXR with bibasilar airspace opacities are new from previous. Correlate clinically for evidence of an infectious/inflammatory pneumonitis No leukocytosis. Procal pending - no indication for antibiotics at this time No evidence of anaplasma on peripheral smear, lyme serology negative Continue dexamethasone, gentle IV fluids, supportive care Covid isolation precautions Has been complaining of cough and mild shortness of breath persisting We will add guaifenesin and Tessalon Perles Continue current treatment of remdesivir and dexamethasone IV fluid has been discontinued Chest x-ray did show worsening of pneumonia and he has been requiring up to 5 L of oxygen to maintain saturation He received 40 mg Lasix IV this morning CRP is mildly elevated at 2.01 but prolactin is normal We'll give another dose of Lasix 40 mg IV now 12/24/2020 Monitor PRP-remains stable CRP is improved little bit We will give another dose of 40 mg Lasix today 12/25/2020 Remains stable but is still requiring high flow oxygen to maintain saturation. Will check CRP tomorrow and if elevated will involve pulmonary for possible Tocilizumab administration We will administer nebulized bronchodilator as needed for wheezing Appreciate pulmonary input and recommendation-we will continue current treatment Lasix to keep negative balance Finish the course of remdesivir and will continue dexamethasone to finish 10 days course A lot better today and will continue with current management (2) Hyponatremia: Plan: Sodium 127 - hypotonic hypovolemic hyponatremia Continue gentle IV fluid resuscitation Monitor with daily BMP -sodium level is up at 133 Monitor PRP-sodium level is improved to 135 on 12/25/2020 Hyponatremia is corrected (3) HTN (hypertension): Plan: Normotensive. Holding HCTZ while clinically dry. Continue lisinopril HS Blood pressure remains controlled Lasix will be given IV once daily Blood pressure remains stable (4) HLD (hyperlipidemia): Plan: Diet controlled DVT Ppx:SQ Lovenox Code status: FULL PCP: Didi Winters Dispo: Admitted to PCU Discussed with the mother Admission and Anticipated Discharge Date Admission Date: December 21, 2020 Subjective 12/22/2020 The patient was seen and examined in telemetry unit and Covid room He has been complaining of cough and shortness of breath No fever and no chills Still requiring 2 L of oxygen to maintain saturation Denies any other symptoms 12/23/2020 The patient was seen and examined in telemetry and Covid room He has been worse today with increasing shortness of breath but the cough is better He was in prone position for some time Denies any pain and/or nausea or vomiting 12/24/2020 The patient was seen and examined in telemetry unit and Covid room His condition has gotten worse since last night Chest x-ray did show worsening of pneumonia and requiring more oxygen to maintain saturation 12/25/2020 The patient was seen and examined in telemetry unit and Covid room He has been requiring high flow oxygen to maintain saturation especially when he moves around and tries to sit up He has been doing reasonably well with prone position and has been conversing normally Feels a little better compared with yesterday 12/26/2020 The patient was seen and examined in telemetry unit and Covid room He has been feeling better but worse as he is requiring more oxygen to maintain saturation Denies any chest pain and or palpitation but has profound cough 12/27/2020 The patient was seen and examined in telemetry unit in Covid room He has been stable Still requiring high flow oxygen to maintain saturation and saturation drops with any exertion Denies any other symptoms 12/28/2020 The patient was seen and examined in telemetry unit and in Covid room He has been feeling a lot better today and has been conversing normally Still requiring about 5 L of oxygen to maintain saturation The cough is minimal and weakness is minimal to Review of Systems Review of Systems: All systems reviewed and are unremarkable except as noted below Respiratory: + cough and + dyspnea Physical Exam Physical Exam: Lying in bed in prone position without any apparent distress Constitutional: well developed, well nourished, + ill appearing and + obese Eyes: PERRL, conjunctivae normal, anicteric sclerae ENMT: external ear and nose normal, oropharynx normal Neck: trachea midline, no thyromegaly Respiratory: Auscultation: + diminished lung sounds (Bilaterally with occasional crackles) Cardiovascular: Rate/Rhythm: regular rate and regular rhythm Heart Sounds: normal S1 and normal S2; no murmur Extremities: no edema Gastrointestinal (Abdomen): normal bowel sounds, soft, nontender, no hepatosplenomegaly Musculoskeletal: No acute arthritis Neurologic: PERRL, EOMI, accommodation nl, no face palsy, no dysarthria Psychiatric: A+Ox3, euthymic affect Lymphatic: no cervical or axillary lymphadenopathy Results & Data Results & Data ([facility]) Vital Signs (Past 12 Hours) Vital Signs Temp Pulse Pulse Resp BP Pulse Ox Pulse Ox 12/28/20 12:18 36.8 C 85 19 134/73 95 12/28/20 09:00 96 12/28/20 08:00 57 L 12/28/20 03:54 36.8 C 67 20 115/67 96 12/28/20 03:04 78 18 95 Laboratory Results [facility] 12/28/20 06:55 Sodium 134 L Potassium 3.6 Chloride 99 Carbon Dioxide 28 BUN 23 H Creatinine 0.72 Glucose 110 H Calcium 9.0 Medications Administered Current Inpatient Medications Acetaminophen (Acetaminophen 325 Mg Tab) 650 mg PO Q4H PRN PRN Reason: Pain or Fever Stop: 01/20/21 16:37 Last Admin: 12/27/20 00:02 Dose: 650 mg Documented by: Albuterol (Albut/Ipratrop 3mg/0.5mg Neb 3 Ml Vial) 3 ml NEB Q4R PRN PRN Reason: Wheezing Stop: 01/25/21 10:59 Last Admin: 12/26/20 09:49 Dose: 3 ml Documented by: Ascorbic Acid (Ascorbic Acid 500 Mg Tab) 500 mg PO HS STEPHANIE Stop: 01/20/21 20:59 Last Admin: 12/27/20 21:32 Dose: 500 mg Documented by: Benzonatate (Benzonatate 100 Mg Capsule) 100 mg PO TID STEPHANIE Stop: 01/21/21 20:59 Last Admin: 12/28/20 13:18 Dose: 100 mg Documented by: Enoxaparin Sodium (Enoxaparin Inj 40 Mg/0.4 Ml Syr) 40 mg SQ Q12H STEPHANIE Stop: 01/20/21 17:59 Last Admin: 12/28/20 05:17 Dose: 40 mg Documented by: Guaifenesin (Guaifenesin 600 Mg Tabcr) 1,200 mg PO Q12 STEPHANIE Stop: 01/21/21 20:59 Last Admin: 12/28/20 08:51 Dose: 1,200 mg Documented by: Hydrocodone Bit/Homatropine Methylb (Hydrocodone/Homatropine Syrup 5mg/1.5mg 5ml Udp) 5 ml PO Q6H PRN PRN Reason: Cough Stop: 01/08/21 02:48 Last Admin: 12/26/20 16:39 Dose: 5 ml Documented by: Dexamethasone 10 mg/ Syringe 2.5 mls @ 1 mls/min IV DAILY STEPHANIE Stop: 12/31/20 09:03 Last Admin: 12/28/20 08:51 Dose: 1 mls/min Documented by: Magnesium Oxide (Magnesium Oxide 400 Mg Tab) 400 mg PO HS STEPHANIE Stop: 01/20/21 20:59 Last Admin: 12/27/20 21:32 Dose: 400 mg Documented by: Ondansetron HCl (Ondansetron Inj 2 Mg/Ml 2 Ml Vial) 4 mg IV Q6H PRN PRN Reason: Nausea Stop: 01/20/21 16:37 Pantoprazole Sodium (Pantoprazole 40 Mg Tab) 40 mg PO [facility] Stop: 01/20/21 20:59 Last Admin: 12/27/20 21:32 Dose: 40 mg Documented by: Polyethylene Glycol (Polyethylene (Miralax) 17 Gm Pack) 17 gm PO DAILY PRN PRN Reason: Constipation Stop: 01/20/21 16:37 Sodium Chloride (Sodium Chloride 0.65% Na Soln 45 Ml ([place])) 2 sprays NA TID PRN PRN Reason: Nasal Congestion Stop: 01/20/21 23:24 Last Admin: 12/22/20 00:08 Dose: 2 sprays Documented by: Vitamin D (Cholecalciferol 1,000 Units 25 Mcg Tab) 1,000 units PO HS STEPHANIE Stop: 01/20/21 20:59 Last Admin: 12/27/20 21:32 Dose: 1,000 units Documented by:
[2020-12-28] MEDS: ASCORBIC ACID 500 MG TAB PO SCH (21:56)
[2020-12-28] MEDS: CHOLECALCIFEROL 1,000 UNITS 25 MCG TAB PO SCH (21:57)
[2020-12-28] MEDS: PANTOprazole 40 MG TAB PO SCH (21:57)
[2020-12-28] MEDS: MAGNESIUM OXIDE 400 MG TAB PO SCH (21:57)
[2020-12-29] MEDS: ENOXAPARIN INJ 40 MG/0.4 ML SYR SQ SCH ×2 (06:36→17:00)
[2020-12-29] MEDS: guaiFENesin 600 MG TABCR PO SCH ×2 (07:57→21:54)
[2020-12-29] MEDS: BENZONATATE 100 MG CAPSULE PO SCH ×3 (07:57→21:54)
[2020-12-29] MEDS: dexAMETHasone 10 MG in SYRINGE 0 ML IV SCH (07:58)
--- NOTE | 2020-12-29 16:24 | Hospitalist Progress Note ---
Date of Service December 29, 2020 Assessment & Plan (1) COVID-19: Plan: This is a 55yo M with a PMH of HTN and DLD who presents with viral symptoms that began 6 days ago and was found to be covid-19 positive on PCR test. Saturating 95% on 2L NC - will assess O2 saturation on room air Denies cough or SOB CXR with bibasilar airspace opacities are new from previous. Correlate clinically for evidence of an infectious/inflammatory pneumonitis No leukocytosis. Procal pending - no indication for antibiotics at this time No evidence of anaplasma on peripheral smear, lyme serology negative Continue dexamethasone, gentle IV fluids, supportive care Covid isolation precautions Has been complaining of cough and mild shortness of breath persisting We will add guaifenesin and Tessalon Perles Continue current treatment of remdesivir and dexamethasone IV fluid has been discontinued later on Chest x-ray did show worsening of pneumonia and he has been requiring up to 5 L of oxygen to maintain saturation Remains stable but is still requiring high flow oxygen to maintain saturation. CRP went up to 5.20 on from 2.01 on Pulmonology consulted and he does not require any Tocilizumab Has been receiving Lasix and now is in negative balance-Lasix is stopped now We will administer nebulized bronchodilator as needed for wheezing Appreciate pulmonary input and recommendation-we will continue current treatment The course of remdesivir is done and he is getting increasing dose of the dexamethasone to finish 10 days course Has been feeling much better but is still requiring about 5 L of oxygen to maintain saturation Symptomatically improved (2) Hyponatremia: Plan: Sodium 127 - hypotonic hypovolemic hyponatremia Continue gentle IV fluid resuscitation Monitor with daily BMP -sodium level is up at 133 Monitor PRP-sodium level is improved to 135 on 12/25/2020 Hyponatremia is corrected (3) HTN (hypertension): Plan: Normotensive. Holding HCTZ while clinically dry. Continue lisinopril HS Blood pressure remains controlled Lasix will be given IV once daily Blood pressure remains stable (4) HLD (hyperlipidemia): Plan: Diet controlled DVT Ppx:SQ Lovenox Code status: FULL PCP: Didi Winters Dispo: Admitted to PCU Discussed with the mother Plan: Will need PT and OT evaluation and possible 2 steps O2 saturation test before discharge Admission and Anticipated Discharge Date Admission Date: December 21, 2020 Subjective 12/22/2020 The patient was seen and examined in telemetry unit and Covid room He has been complaining of cough and shortness of breath No fever and no chills Still requiring 2 L of oxygen to maintain saturation Denies any other symptoms 12/23/2020 The patient was seen and examined in telemetry and Covid room He has been worse today with increasing shortness of breath but the cough is better He was in prone position for some time Denies any pain and/or nausea or vomiting 12/24/2020 The patient was seen and examined in telemetry unit and Covid room His condition has gotten worse since last night Chest x-ray did show worsening of pneumonia and requiring more oxygen to maintain saturation 12/25/2020 The patient was seen and examined in telemetry unit and Covid room He has been requiring high flow oxygen to maintain saturation especially when he moves around and tries to sit up He has been doing reasonably well with prone position and has been conversing normally Feels a little better compared with yesterday 12/26/2020 The patient was seen and examined in telemetry unit and Covid room He has been feeling better but worse as he is requiring more oxygen to maintain saturation Denies any chest pain and or palpitation but has profound cough 12/27/2020 The patient was seen and examined in telemetry unit in Covid room He has been stable Still requiring high flow oxygen to maintain saturation and saturation drops with any exertion Denies any other symptoms 12/28/2020 The patient was seen and examined in telemetry unit and in Covid room He has been feeling a lot better today and has been conversing normally Still requiring about 5 L of oxygen to maintain saturation The cough is minimal and weakness is minimal too 12/29/2020 The patient was seen and examined in telemetry unit and in Covid room He has been doing much better today and has been ambulating in the room without any distress He is still requiring about 5 L of oxygen via nasal cannula to maintain saturation He has been in negative balance and she has minimal cough today Review of Systems Review of Systems: All systems reviewed and are unremarkable except as noted below Respiratory: + cough and + dyspnea Physical Exam Physical Exam: Lying in bed without any acute distress Constitutional: well developed, well nourished, + ill appearing and + obese Eyes: PERRL, conjunctivae normal, anicteric sclerae ENMT: external ear and nose normal, oropharynx normal Neck: trachea midline, no thyromegaly Respiratory: Auscultation: + diminished lung sounds (Bilaterally with occasional crackles) and + crackles (Minimal crackles bibasslly); no wheezes Cardiovascular: Rate/Rhythm: regular rate and regular rhythm Heart Sounds: normal S1 and normal S2; no murmur Extremities: no edema Gastrointestinal (Abdomen): normal bowel sounds, soft, nontender, no hepatosplenomegaly Neurologic: PERRL, EOMI, accommodation nl, no face palsy, no dysarthria Psychiatric: A+Ox3, euthymic affect Lymphatic: no cervical or axillary lymphadenopathy Results & Data Results & Data ([facility]) Vital Signs (Past 12 Hours) Vital Signs Temp Pulse Pulse Resp BP Pulse Ox Pulse Ox 12/29/20 12:00 36.5 C 68 20 144/83 H 97 12/29/20 09:00 96 12/29/20 08:50 36.4 C L 71 18 109/68 96 12/29/20 08:00 53 L Diagnostic Findings Current Inpatient Medications Acetaminophen (Acetaminophen 325 Mg Tab) 650 mg PO Q4H PRN PRN Reason: Pain or Fever Stop: 01/20/21 16:37 Last Admin: 12/27/20 00:02 Dose: 650 mg Documented by: Albuterol (Albut/Ipratrop 3mg/0.5mg Neb 3 Ml Vial) 3 ml NEB Q4R PRN PRN Reason: Wheezing Stop: 01/25/21 10:59 Last Admin: 12/26/20 09:49 Dose: 3 ml Documented by: Ascorbic Acid (Ascorbic Acid 500 Mg Tab) 500 mg PO HS STEPHANIE Stop: 01/20/21 20:59 Last Admin: 12/28/20 21:56 Dose: 500 mg Documented by: Benzonatate (Benzonatate 100 Mg Capsule) 100 mg PO TID STEPHANIE Stop: 01/21/21 20:59 Last Admin: 12/29/20 12:13 Dose: 100 mg Documented by: Enoxaparin Sodium (Enoxaparin Inj 40 Mg/0.4 Ml Syr) 40 mg SQ Q12H STEPHANIE Stop: 01/20/21 17:59 Last Admin: 12/29/20 06:36 Dose: 40 mg Documented by: Guaifenesin (Guaifenesin 600 Mg Tabcr) 1,200 mg PO Q12 STEPHANIE Stop: 01/21/21 20:59 Last Admin: 12/29/20 07:57 Dose: 1,200 mg Documented by: Hydrocodone Bit/Homatropine Methylb (Hydrocodone/Homatropine Syrup 5mg/1.5mg 5ml Udp) 5 ml PO Q6H PRN PRN Reason: Cough Stop: 01/08/21 02:48 Last Admin: 12/26/20 16:39 Dose: 5 ml Documented by: Dexamethasone 10 mg/ Syringe 2.5 mls @ 1 mls/min IV DAILY STEPHANIE Stop: 12/31/20 09:03 Last Admin: 12/29/20 07:58 Dose: 1 mls/min Documented by: Magnesium Oxide (Magnesium Oxide 400 Mg Tab) 400 mg PO HS STEPHANIE Stop: 01/20/21 20:59 Last Admin: 12/28/20 21:57 Dose: 400 mg Documented by: Ondansetron HCl (Ondansetron Inj 2 Mg/Ml 2 Ml Vial) 4 mg IV Q6H PRN PRN Reason: Nausea Stop: 01/20/21 16:37 Pantoprazole Sodium (Pantoprazole 40 Mg Tab) 40 mg PO HS STEPHANIE Stop: 01/20/21 20:59 Last Admin: 12/28/20 21:57 Dose: 40 mg Documented by: Polyethylene Glycol (Polyethylene (Miralax) 17 Gm Pack) 17 gm PO DAILY PRN PRN Reason: Constipation Stop: 01/20/21 16:37 Sodium Chloride (Sodium Chloride 0.65% Na Soln 45 Ml ([place])) 2 sprays NA TID PRN PRN Reason: Nasal Congestion Stop: 01/20/21 23:24 Last Admin: 12/22/20 00:08 Dose: 2 sprays Documented by: Vitamin D (Cholecalciferol 1,000 Units 25 Mcg Tab) 1,000 units PO HS STEPHANIE Stop: 01/20/21 20:59 Last Admin: 12/28/20 21:57 Dose: 1,000 units Documented by: Medications Administered Current Inpatient Medications Acetaminophen (Acetaminophen 325 Mg Tab) 650 mg PO Q4H PRN PRN Reason: Pain or Fever Stop: 01/20/21 16:37 Last Admin: 12/27/20 00:02 Dose: 650 mg Documented by: Albuterol (Albut/Ipratrop 3mg/0.5mg Neb 3 Ml Vial) 3 ml NEB Q4R PRN PRN Reason: Wheezing Stop: 01/25/21 10:59 Last Admin: 12/26/20 09:49 Dose: 3 ml Documented by: Ascorbic Acid (Ascorbic Acid 500 Mg Tab) 500 mg PO HS STEPHANIE Stop: 01/20/21 20:59 Last Admin: 12/28/20 21:56 Dose: 500 mg Documented by: Benzonatate (Benzonatate 100 Mg Capsule) 100 mg PO TID STEPHANIE Stop: 01/21/21 20:59 Last Admin: 12/29/20 12:13 Dose: 100 mg Documented by: Enoxaparin Sodium (Enoxaparin Inj 40 Mg/0.4 Ml Syr) 40 mg SQ Q12H STEPHANIE Stop: 01/20/21 17:59 Last Admin: 12/29/20 06:36 Dose: 40 mg Documented by: Guaifenesin (Guaifenesin 600 Mg Tabcr) 1,200 mg PO Q12 STEPHANIE Stop: 01/21/21 20:59 Last Admin: 12/29/20 07:57 Dose: 1,200 mg Documented by: Hydrocodone Bit/Homatropine Methylb (Hydrocodone/Homatropine Syrup 5mg/1.5mg 5ml Udp) 5 ml PO Q6H PRN PRN Reason: Cough Stop: 01/08/21 02:48 Last Admin: 12/26/20 16:39 Dose: 5 ml Documented by: Dexamethasone 10 mg/ Syringe 2.5 mls @ 1 mls/min IV DAILY STEPHANIE Stop: 12/31/20 09:03 Last Admin: 12/29/20 07:58 Dose: 1 mls/min Documented by: Magnesium Oxide (Magnesium Oxide 400 Mg Tab) 400 mg PO HS STEPHANIE Stop: 01/20/21 20:59 Last Admin: 12/28/20 21:57 Dose: 400 mg Documented by: Ondansetron HCl (Ondansetron Inj 2 Mg/Ml 2 Ml Vial) 4 mg IV Q6H PRN PRN Reason: Nausea Stop: 01/20/21 16:37 Pantoprazole Sodium (Pantoprazole 40 Mg Tab) 40 mg PO HS STEPHANIE Stop: 01/20/21 20:59 Last Admin: 12/28/20 21:57 Dose: 40 mg Documented by: Polyethylene Glycol (Polyethylene (Miralax) 17 Gm Pack) 17 gm PO DAILY PRN PRN Reason: Constipation Stop: 01/20/21 16:37 Sodium Chloride (Sodium Chloride 0.65% Na Soln 45 Ml ([place])) 2 sprays NA TID PRN PRN Reason: Nasal Congestion Stop: 01/20/21 23:24 Last Admin: 12/22/20 00:08 Dose: 2 sprays Documented by: Vitamin D (Cholecalciferol 1,000 Units 25 Mcg Tab) 1,000 units PO HS STEPHANIE Stop: 01/20/21 20:59 Last Admin: 12/28/20 21:57 Dose: 1,000 units Documented by:
[2020-12-29] MEDS: CHOLECALCIFEROL 1,000 UNITS 25 MCG TAB PO SCH (21:54)
[2020-12-29] MEDS: MAGNESIUM OXIDE 400 MG TAB PO SCH (21:54)
[2020-12-29] MEDS: ASCORBIC ACID 500 MG TAB PO SCH (21:54)
[2020-12-29] MEDS: PANTOprazole 40 MG TAB PO SCH (21:54)
[2020-12-30] MEDS: ENOXAPARIN INJ 40 MG/0.4 ML SYR SQ SCH ×2 (06:27→18:31)
[2020-12-30 06:52] LABS: Hematocrit (blood only) 39.8 % (42-52); Hemoglobin 13.9 g/dL (14.0-18.0); Mean Corpuscular Hemoglobin 31.8 pg (25-34); Mean Corpuscular Hgb Conc 34.9 g/dL (32-36); Mean Corpuscular Volume 91.1 fL (80-100); Mean Platelet Volume 8.5 fL (7.4-10.4); Platelet Count 424 K/uL (130-400); RDW Coefficient of Variation 12.5 % (11.5-14.5); RDW Standard Deviation 42.1 fL (36.4-46.3); Red Blood Count 4.37 M/uL (4.7-6.1); White Blood Count 11.03 K/uL (4.8-10.8)
[2020-12-30 07:18] LABS: Basophils # (auto) 0.04 K/uL (0-0.2); Basophils % (auto) 0.4 %; Eosinophils % (auto) 1.8 %; Immature Granulocytes # (auto) 0.66 K/uL (0.00-0.02); Lymphocytes # (auto) 1.63 K/uL (1.2-3.4); Lymphocytes % (auto) 14.8 %; Monocytes % (auto) 8.2 %; Neutrophils % (auto) 68.8 %
[2020-12-30 07:28] LABS: BUN Creatinine Ratio 24.8 (10-20); Calcium 8.7 mg/dl (8.5-10.1); Creatinine Clr Calc Pharmacy 112.8 ml/min; Est GFR (African American) 113.4 ml/min; Est GFR (Non-African American) 97.8 ml/min; Magnesium 2.5 mg/dl (1.8-2.4)
[2020-12-30 07:29] LABS: Phosphorus 3.2 mg/dl (2.5-4.9)
[2020-12-30] MEDS: guaiFENesin 600 MG TABCR PO SCH ×2 (09:04→20:32)
[2020-12-30] MEDS: BENZONATATE 100 MG CAPSULE PO SCH ×3 (09:04→20:31)
[2020-12-30] MEDS: ACETAMINOPHEN 325 MG TAB PO PRN (09:05)
[2020-12-30] MEDS: dexAMETHasone 10 MG in SYRINGE 0 ML IV SCH (09:06)
--- NOTE | 2020-12-30 16:49 | Hospitalist Progress Note ---
Date of Service December 30, 2020 Assessment & Plan (1) COVID-19: Plan: This is a 55yo M with a PMH of HTN and DLD who presents with viral symptoms that began 6 days ago and was found to be covid-19 positive on PCR test. CXR with bibasilar airspace opacities are new from previous. Correlate clinically for evidence of an infectious/inflammatory pneumonitis Repeat Chest x-ray showed worsening of pneumonia and he was requiring up to 5 L of oxygen to maintain saturation No leukocytosis. Procalcitonin normal - no indication for antibiotics at this time No evidence of anaplasma on peripheral smear, lyme serology negative Continue supportive care with dexamethasone, guaifenesin and Tessalon Perles CRP went up to 5.20 on from 2.01 on Covid isolation precautions Completed the course of remdesivir Pulmonology consulted and he does not require any Tocilizumab Has been receiving Lasix and now is in negative balance-Lasix is stopped now Will complete course of dexamethasone tomorrow Saturating well on room air today Continue monitor closely Consider 2 step exercise on discharge (2) Hyponatremia: Plan: Sodium 127 - hypotonic hypovolemic hyponatremia Received IV fluid Sodium 137 today Resolved (3) HTN (hypertension): Plan: BP has been fluctuated Continue lisinopril continue monitor BP (4) HLD (hyperlipidemia): Plan: Diet controlled DVT Ppx:SQ Lovenox Code status: FULL PCP: S Singh Disposition Plan to discharge home tomorrow Admission and Anticipated Discharge Date Admission Date: December 21, 2020 Subjective Patient was seen and examined for follow-up of shortness of breath due to COVID- 19 Lying in bed with no acute distress. Patient said that he feels much better Saturated well on room air He said he has been moving around in his room Denies any chest pain, palpitation, dizziness, shortness of breath. Physical Exam Physical Exam: General- No acute distress Head- atraumatic Eyes- PERRL, EOMI, ENT- oropharynx clear Neck- supple, no JVD Lungs- + diminished breath sounds Heart- regular rhythm; no murmur Abdomen- normal bowel sounds, soft, nontender Extremities- no calf tenderness Neuro- alert, oriented x 3; PERRL, EOMI; no facial palsy; no dysarthria Skin- warm & dry Results & Data Results & Data ([facility]) Vital Signs (Past 12 Hours) Vital Signs Temp Pulse Pulse Resp BP Pulse Ox Pulse Ox 12/30/20 15:35 66 12/30/20 14:44 36.9 C 59 L 18 122/75 95 12/30/20 12:07 67 18 126/65 96 12/30/20 09:00 93 12/30/20 08:12 36.6 C 67 18 129/81 96 12/30/20 07:07 73
[2020-12-30] MEDS: CHOLECALCIFEROL 1,000 UNITS 25 MCG TAB PO SCH (20:31)
[2020-12-30] MEDS: ASCORBIC ACID 500 MG TAB PO SCH (20:31)
[2020-12-30] MEDS: PANTOprazole 40 MG TAB PO SCH (20:32)
[2020-12-30] MEDS: MAGNESIUM OXIDE 400 MG TAB PO SCH (20:32)
[2020-12-31] MEDS: ENOXAPARIN INJ 40 MG/0.4 ML SYR SQ SCH ×2 (06:06→17:22)
[2020-12-31] MEDS: dexAMETHasone 10 MG in SYRINGE 0 ML IV SCH (08:10)
[2020-12-31] MEDS: guaiFENesin 600 MG TABCR PO SCH ×2 (08:10→20:52)
[2020-12-31] MEDS: BENZONATATE 100 MG CAPSULE PO SCH ×3 (08:10→20:52)
--- NOTE | 2020-12-31 19:04 | Discharge Summary ---
Date of Service January 01, 2021 Admission HPI Per Admitting Provider This is a 55yo M with a PMH of HTN and DLD who presents with viral symptoms that began 6 days ago. Patient endorses fevers (tmax 100.5 F), sinus congestion, headache, generalized weakness, nausea and dry heaves. Also endorsing decreased PO intake. Was likely exposed at [employer] 2 Sundays ago. Patient has not received covid vaccine. Went to [facility] ED on Sunday for similar symptoms but declined Covid-19 testing at that time. Took ibuprofen and mucinex last evening with minimal relief. Denies chills, cough, chest pain, abdominal pain, dysuria, diarrhea. Feeling constipated with limited oral intake. Admission Exam Per Admitting Provider Physical Exam: The patient was examined in emergency room. Lying in bed without any acute distress Constitutional: Mildly obese without any significant discomfort at rest Eyes: PERRL, conjunctivae normal, anicteric sclerae ENMT: external ear and nose normal, oropharynx normal Neck: trachea midline, no thyromegaly Respiratory: + diminished lung sounds and + crackles (Left base) Minimally decreased breath sound bilaterally with minimal crackles at the left base Cardiovascular: regular rate and regular rhythm Heart Sounds: normal S1 and normal S2; no murmur Extremities: no edema Gastrointestinal: normal bowel sounds, soft, nontender, no hepatosplenomegaly Neurologic: PERRL, EOMI, accommodation nl, no face palsy, no dysarthria Psychiatric: A+Ox3, euthymic affect Lymphatic: no cervical or axillary lymphadenopathy Principal Diagnosis COVID-19: Hyponatremia: HTN (hypertension): HLD (hyperlipidemia): Discharge Exam General- No acute distress Head- atraumatic Eyes- PERRL, EOMI, ENT- oropharynx clear Neck- supple, no JVD Lungs- + diminished breath sounds Heart- regular rhythm; no murmur Abdomen- normal bowel sounds, soft, nontender Extremities- no calf tenderness Neuro- alert, oriented x 3; PERRL, EOMI; no facial palsy; no dysarthria Skin- warm & dry Discharge Data Allergies Allergy/AdvReac Type Severity Reaction Status Date / Time No Known Allergies Allergy Unknown PT DENIES Verified 12/21/20 13:02 ALL ALLERGIES Consultations 12/21/20 12:31 ED Decision to Admit Stat 12/27/20 08:52 Consult Pulmonology Routine Ordered Studies SINGLE VIEW CHEST CLINICAL HISTORY: Pneumonia. FINDINGS: An AP, portable, upright chest radiograph is compared to study dated 12/21/2020. The cardiomediastinal silhouette is top normal for projection. Multifocal airspace consolidation is seen throughout both lungs. This has significantly progressed as compared to 12/21/2020. No large pleural effusion or pneumothorax is seen. The bony thorax is grossly intact. IMPRESSION: Multifocal airspace consolidation has significantly progressed as compared to 12/21/2020. ACT 112: Negative or not required by law. Electronically signed by: Antonio Collins M.D. 12/24/2020 9:57 AM Dictated: 12/24/20 [id number]: 12/24/20 09 SINGLE VIEW CHEST CLINICAL HISTORY: Atypical chest pain. FINDINGS: An AP, portable, upright chest radiograph is compared to study dated 12/19/2020. The heart is enlarged. The pulmonary vasculature is noncongested. Patchy opacities are present at both lung bases. No large pleural effusion or pneumothorax is seen. The skeletal structures appear osteopenic. The bony thorax is grossly intact. IMPRESSION: 1. Cardiomegaly without radiographic evidence of congestive failure. 2. Bibasilar airspace opacities are new from previous. Correlate clinically for evidence of an infectious/inflammatory pneumonitis. Radiographic follow-up to resolution is recommended. ACT 112: Negative or not required by law. Electronically signed by: Antonio Collins M.D. 12/21/2020 11:15 AM Dictated: 12/21/20 [id number]: 12/21/20 1114 Hospital Course (1) COVID-19: This is a 55yo M with a PMH of HTN and DLD who presents with viral symptoms that began 6 days ago and was found to be covid-19 positive on PCR test. CXR with bibasilar airspace opacities are new from previous. Correlate clinically for evidence of an infectious/inflammatory pneumonitis Repeat Chest x-ray showed worsening of pneumonia and he was requiring up to 5 L of oxygen to maintain saturation No leukocytosis. Procalcitonin normal - no indication for antibiotics at this time No evidence of anaplasma on peripheral smear, lyme serology negative Continue supportive care with dexamethasone, guaifenesin and Tessalon Perles CRP went up to 5.20 on from 2.01 on Covid isolation precautions Completed the course of remdesivir Pulmonology consulted and he does not require any Tocilizumab Has been receiving Lasix and now is in negative balance-Lasix is stopped now Will complete course of dexamethasone tomorrow Saturating well on room air today Continue monitor closely Consider 2 step exercise on discharge (2) Hyponatremia: Sodium 127 - hypotonic hypovolemic hyponatremia Received IV fluid Sodium 137 Resolved (3) HTN (hypertension): BP has been fluctuated Continue lisinopril continue monitor BP (4) HLD (hyperlipidemia): Diet controlled DVT Ppx:SQ Lovenox Code status: FULL PCP: Didi Winters Disposition Plan to discharge home Total Time Total Time Spent Total Time Spent (In Minutes): 35 minutes Discharge Plan Discharge Items Patient Disposition: Home - Self-Care Reason For Visit: COVID, HYPONATREMIA Discharge Diagnosis: COVID-19: Hyponatremia: HTN (hypertension): HLD (hyperlipidemia): Activity: Resume your previous activity Non-emergency contact: Primary Care Provider Call non-emergency contact if: you have any medication questions Follow-up/Referrals: Edi Winters DO [Primary Care Provider] - 01/05/21 1:40 pm (Date & Time 01/05/2021 1:40 PM Provider Edi Winters DO Department [facility] PLEASE NOTE THAT THIS IS A TELEHEALTH APPOINTMENT. PLEASE FOLLOW THE INSTRUCTIONS PROVIDED IN YOUR EMAIL. IF YOU HAVE ANY QUESTIONS REGARDING THIS APPOINTMENT, PLEASE CALL ) Diet: Heart Healthy Addtl Attending Provider Instructions: Follow up with your primary provider Dr. Winters on 01/05/2021 at 1:40 PM at the [facility] (PLEASE NOTE THAT THIS IS A TELEHEALTH APPOINTMENT.) Continue to wear your mask and practice social distance Home Isolation COVID-19 Instructions The following information about Home Isolation is from the CDC Website: https://www.cdc.gov/coronavirus/2019-ncov/hcp/hbyoqvhr-puktmpi-wozaag.html Stay home except to get medical care People who are mildly ill with COVID-19 are able to isolate at home during their illness. You should restrict activities outside your home, except for getting medical care. Do not go to work, school, or public areas. Avoid using public transportation, ride-sharing, or taxis. Separate yourself from other people and animals in your home People: As much as possible, you should stay in a specific room and away from other people in your home. Also, you should use a separate bathroom, if available. Animals: You should restrict contact with pets and other animals while you are sick with COVID-19, just like you would around other people. Although there have not been reports of pets or other animals becoming sick with COVID-19, it is still recommended that people sick with COVID-19 limit contact with animals until more information is known about the virus. When possible, have another member of your household care for your animals while you are sick. If you are si ck with COVID-19, avoid contact with your pet, including petting, snuggling, being kissed or licked, and sharing food. If you must care for your pet or be around animals while you are sick, wash your hands before and after you interact with pets and wear a face mask. Call ahead before visiting your doctor If you have a medical appointment, call the healthcare provider and tell them that you have or may have COVID-19. This will help the healthcare providers office take steps to keep other people from getting infected or exposed. Wear a face mask You should wear a face mask when you are around other people (e.g., sharing a room or vehicle) or pets and before you enter a healthcare providers office. If you are not able to wear a face mask (for example, because it causes trouble breathing), then people who live with you should not stay in the same room with you, or they should wear a face mask if they enter your room. Cover your coughs and sneezes Cover your mouth and nose with a tissue when you cough or sneeze. Throw used tissues in a lined trash can. Immediately wash your hands with soap and water for at least 20 seconds or, if soap and water are not available, clean your hands with an alcohol-based hand liquor stores and agencies supervisor that contains at least 60% alcohol. Clean your hands often Wash your hands often with soap and water for at least 20 seconds, especially after blowing your nose, coughing, or sneezing; going to the bathroom; and before eating or preparing food. If soap and water are not readily available, use an alcohol-based hand liquor stores and agencies supervisor with at least 60% alcohol, covering all surfaces of your hands and rubbing them together until they feel dry. Soap and water are the best option if hands are visibly dirty. Avoid touching your eyes, nose, and mouth with unwashed hands. Avoid sharing personal household items You should not share dishes, drinking glasses, cups, eating utensils, towels, or bedding with other people or pets in your home. After using these items, they should be washed thoroughly with soap and water. Clean all high-touch surfaces everyday High touch surfaces include counters, tabletops, doorknobs, bathroom fixtures, toilets, phones, keyboards, tablets, and bedside tables. Also, clean any surface s that may have blood, stool, or body fluids on them. Use a household cleaning spray or wipe, according to the label instructions. Labels contain instructions for safe and effective use of the cleaning product including precautions you should take when applying the product, such as wearing gloves and making sure you have good ventilation during use of the product. Monitor your symptoms Seek prompt medical attention if your illness is worsening (e.g., difficulty breathing).Beforeseeking care, call your healthcare provider and tell them that you have, or are being evaluated for, COVID-19. Put on a face mask before you enter the facility. These steps will help the healthcare providers office to keep other people in the office or waiting room from getting infected or exposed. Ask your healthcare provider to call the local or state health department. Persons who are placed under active monitoring or facilitated self- monitoring should follow instructions provided by their local health department or occupational health professionals, as appropriate. When working with your local health department check their available hours. If you have a medical emergency and need to call 911, notify the dispatch personnel that you have, or are being evaluated for COVID-19. If possible, put on a face mask before emergency medical services arrive. Discontinuing home isolation Patients with confirmed COVID-19 should remain under home isolation precautions until the risk of secondary transmission to others is thought to be low. The decision to discontinue home isolation precautions should be made on a rdba-ci-qnuv basis, in consultation with healthcare providers and state and local health departments. Coronavirus disease 2019 (COVID-19) is a virus that causes a respiratory illness. It is caused by a coronavirus called 2019 novel coronavirus (2019- nCoV). There are many types of coronavirus. Coronaviruses are a very common cause of bronchitis. They may sometimes cause lung infection(pneumonia). Symptoms can range from mild to severe respiratory illness. These viruses are also foundin some animals. COVID-19 was first found in people in [facility], in late 2019. In 2020, several cases of COVID-19 have been confirmed in the [place] Public health officials are working to find the source. How the virus spreads is not yet fully known. It may be spread through droplets of fluid that a person coughs or sneezes into the air. It may be spread if you touch a surface with virus on it, such as a handle or object, and then touch your mouth. What are the symptoms of COVID-19? Some people have no symptoms or mild symptoms. Symptoms may appear 2 to 14 days after contact with the virus. Symptoms can include: Fever Coughing Trouble breathing What are possible complications from COVID-19? In many cases, this virus can cause infection (pneumonia) in both lungs. In some cases, this can cause . How is COVID-19 diagnosed? Your healthcare provider will ask about your symptoms. He or she will also ask about your recent travel and contact with sick people. Testing for the virus is only done through the CDC. If yourhealthcare provider thinks you may have COVID- 19, he or she will work with your local health department and the CDC on testing. Follow all instructions from your healthcare provider. COVID-19 is diagnosed by: Nasal and throat swab. A cotton-tipped swab is wiped inside your nose or throat. This is done to check for viruses in your nasal mucus. Sputum culture. A small sample of mucus coughed from your lungs (sputum) is collected if you have a cough. It is checked for the virus. How is COVID-19 treated? There is currently no medicine to treat the virus. Treatment is done to help your body while it fights the virus. This is known as supportive care. Supportive care may include: Pain medicine. These include acetaminophen and ibuprofen. They are used to help ease pain and reduce fever. Bed rest. This helps your body fight the illness. For severe illness, you may need to stay in the hospital. Care during severe illness may include: IV (intravenous) fluids.These are given through a vein to help keep your body hydrated. Oxygen. Supplemental oxygen or ventilation with a breathing machine (ventilator) may be given. This is done to keep enough oxygen in your body. Are you at risk for COVID-19? If youve been to a place where people have been sick with this virus, you are at risk for infection. You are at risk if you: Recently traveled to an affected area Had contact with a sick person who recently traveled to this area Had contact with a person who was diagnosed with COVID-19 How can COVID-19 be prevented? There is no vaccine yet. The best prevention is to not have contact with the virus. The CDC advises that people should not travel to areas where there are COVID-19 outbreaks right now for any reason that is not urgent. To help prevent spreading the infection, wash your hands often, or use an alcohol-basedhand liquor stores and agencies supervisor. If you are in an area with COVID-19: Wash your hands often. Or use an alcohol-based hand liquor stores and agencies supervisor often. Only touch your eyes, nose, or mouth with clean hands. Dont have contact with people who are sick. Follow local instructions about being in public. For example, you may be told to not use public transport for a period of time. Stay away from markets that have live or animals. Wash your hands after touching any animals. Don't touch animals that may be sick. Dont share eating or drinking tools with sick people. Dont kiss someone who is sick. Clean surfaces often with disinfectant. If you were in an area with COVID-19 in the last 14 days: Call your healthcare provider. He or she can talk with local health staff to see what action may be needed. Follow all instructions from your provider. Take your temperature every morning and evening for at least 14 days. This is to check for fever. Keep a record of the readings. Keep watch for symptoms of the virus. Tell your provider right away if you have symptoms. If you were in an area with COVID-19 and have a fever or other symptoms: Dont panic. Keep in mind that other illnesses can cause similar symptoms. Stay away from work, school, and public places. Limit physical contact with family members. Don't kiss anyone or share eating or drinking utensils. Clean surfaces you touch with disinfectant. This is to help prevent the virus from spreading. Call your healthcare provider. Explain that you have been exposed to COVID-19 and have symptoms. Do this before going to any hospital. Wait for instructions. Keep in mind that healthcare staff may wear protective equipment such as masks, gowns, gloves, and eye protection. You may be put in a separate room. This is to prevent the possible virus from spreading. Tell the healthcare staff about recent travel. This includes local travel on public transport. Staff may need to find other people you have been in contact with. Follow all instructions the healthcare staff give you. If you have been diagnosed with COVID-19 Follow all instructions from your healthcare provider. Dont leave your home, except to get medical care. Call your healthcare providers office before going. They can prepare and give you instructions. This will help prevent the virus from spreading. Dont go to work, school, or public areas. Dont use public transport or taxis. Stay away from other people in your home. Have them wear face masks around you. Dont share household items or food. Wear a face mask if you can. This includes at home or in a medical facility. Cover your face with a tissue when you cough or sneeze. Throw the tissue away. Wash your hands. Wash your hands often. Caregivers should: Follow all instructions from healthcare staff. Wear a face mask and protective clothing as advised. Wash hands often. Keep track of the sick persons symptoms. Clean surfaces, fabrics, and laundry thoroughly. Keep other people away from the sick person. When to call your healthcare provider Call your healthcare provider: If youve recently traveled and have symptoms If you have been diagnosed with COVID-19 and your symptoms are worse To learn more To find out more about COVID-19, visit the CDC website at www.cdc.gov/coronavirus/2019-ncov/index.html. [employer]. [address] [place] [address], [place] [address]. All rights reserved. This information is not intended as a substitute for professional medical care. Always follow your healthcare professional's instructions. This information has been adapted from [employer] Pending Studies at Discharge: No Stand-Alone Forms: My [employer], Smoking Cessation Medications and DC Order Prescriptions: New guaifenesin 200 mg tablet 200 mg PO TID PRN (Reason: cough) Qty: 15 RF: 0 benzonatate [Tessalon Perles] 100 mg Capsule 100 mg PO TID PRN (Reason: cough) Qty: 15 RF: 0 Continued lisinopril 20 mg tablet 20 mg PO HS RF: 0 diphenhydramine HCl [Benadryl] 25 mg Capsule 25 mg PO HS RF: 0 hydrochlorothiazide 25 mg tablet 25 mg PO HS RF: 0 omeprazole magnesium [Prilosec OTC] 20 mg Tablet,Delayed Release (Dr/Ec) 20 mg PO HS RF: 0 ascorbic acid (vitamin C) [Vitamin C] 1,000 mg Tablet 500 mg PO HS RF: 0 selenium 200 mcg Tablet 200 mcg PO HS RF: 0 magnesium 250 mg Tablet 250 mg PO HS RF: 0 cholecalciferol (vitamin D3) [Vitamin D3] 25 mcg (1,000 unit) Tablet 25 mcg PO HS RF: 0 ondansetron 4 mg tablet,disintegrating 4 mg PO Q6H PRN (Reason: nausea and vomiting) Qty: 15 RF: 0 zinc 10 mg Tablet 10 mg PO DAILY RF: 0 Fish Oil 1,000 mg Capsule 1 cap PO HS RF: 0 Discontinued azithromycin [Zithromax] 250 mg tablet 250 mg PO DAILY RF: 0 Discharge Orders: Discharge Order (Routine); Ordered 12/31/20 Ordered By: Vandana Vazquez Admission Data Admit Date/Time: 12/21/20 12:55 Attending Provider: Vandana Vazquez Admit Provider: Thais Forbes Primary Care Provider: Edi Winters Other Providers: Butch Holland ; Haily Pacheco ; Thais Forbes
[2020-12-31] MEDS: ASCORBIC ACID 500 MG TAB PO SCH (20:52)
[2020-12-31] MEDS: MAGNESIUM OXIDE 400 MG TAB PO SCH (20:53)
[2020-12-31] MEDS: PANTOprazole 40 MG TAB PO SCH (20:53)
[2020-12-31] MEDS: CHOLECALCIFEROL 1,000 UNITS 25 MCG TAB PO SCH (20:53)
[2021-01-01] MEDS: ENOXAPARIN INJ 40 MG/0.4 ML SYR SQ SCH (05:36)
--- NOTE | 2021-01-01 08:20 | Hospitalist Progress Note ---
Date of Service December 31, 2020 Assessment & Plan (1) COVID-19: Plan: This is a 55yo M with a PMH of HTN and DLD who presents with viral symptoms that began 6 days ago and was found to be covid-19 positive on PCR test. CXR with bibasilar airspace opacities are new from previous. Correlate clinically for evidence of an infectious/inflammatory pneumonitis Repeat Chest x-ray showed worsening of pneumonia and he was requiring up to 5 L of oxygen to maintain saturation No leukocytosis. Procalcitonin normal - no indication for antibiotics at this time No evidence of anaplasma on peripheral smear, lyme serology negative Continue supportive care with dexamethasone, guaifenesin and Tessalon Perles CRP went up to 5.20 on from 2.01 on Covid isolation precautions Completed the course of remdesivir Pulmonology consulted and he does not require any Tocilizumab Has been receiving Lasix and now is in negative balance-Lasix is stopped now Will complete course of dexamethasone tomorrow Saturating well on room air today Will discharge home today (2) Hyponatremia: Plan: Sodium 127 - hypotonic hypovolemic hyponatremia Received IV fluid Sodium 137 Resolved (3) HTN (hypertension): Plan: BP has been fluctuated Continue lisinopril continue monitor BP (4) HLD (hyperlipidemia): Plan: Diet controlled DVT Ppx:SQ Lovenox Code status: FULL PCP: Didi Winters Disposition Plan to discharge home today Admission and Anticipated Discharge Date Admission Date: December 21, 2020 Subjective Patient was seen and examined for follow-up of shortness of breath due to COVID- 19 Lying in bed with no acute distress. Patient said that he feels much better Saturated well on room air Denies any chest pain, palpitation, dizziness, shortness of breath. Physical Exam Physical Exam: General- No acute distress Head- atraumatic Eyes- PERRL, EOMI, ENT- oropharynx clear Neck- supple, no JVD Lungs- + diminished breath sounds Heart- regular rhythm; no murmur Abdomen- normal bowel sounds, soft, nontender Extremities- no calf tenderness Neuro- alert, oriented x 3; PERRL, EOMI; no facial palsy; no dysarthria Skin- warm & dry Results & Data Results & Data ([facility]) Vital Signs (Past 12 Hours) Vital Signs Temp Pulse Pulse Resp BP BP Pulse Ox 07/31/21 07:26 56 L 01/01/21 03:14 36.7 C 70 16 114/70 92 01/01/21 00:16 67 12/31/20 23:08 36.8 C 75 18 134/80 93 12/31/20 20:39 36.7 C 73 16 126/80 95
[2021-01-01] MEDS: BENZONATATE 100 MG CAPSULE PO SCH (08:43)
[2021-01-01] MEDS: guaiFENesin 600 MG TABCR PO SCH (08:44)
--- NOTE | 2021-01-12 10:55 | Coding Query ---
To promote full compliance with coding requirements relating to patient care, provider participation is requested in all cases of athletic training internship uncertainty. Please assist us with the question(s) below: Coding Question(s): The diagnosis below was documented in the Pulmonary Consultation and Pulmonary Progress Note, (with Hypoxia documented on the ER H&P), then subsequently fell off all further documentation. Please indicate if it is still a possible diagnosis or ruled out. Physician's Response(s): ACUTE RESPIRATORY FAILURE WITH HYPOXIA (regarding the Acute Respiratory Failure) ( x ) Diagnosed and POA ( ) Diagnosed and not POA ( ) Ruled out ( ) Other (please specify) MTDD
== END 2021-01-01 09:24 | disposition home or self-care (01) | DRG 177 ==
LOC: ED 09:15 → 2E 12:55 → SUATTDRO 12:55 → 2E 14:56
DX: Z82.49 Family history of ischemic heart disease and other diseases of the circulatory system; J12.82 Pneumonia due to coronavirus disease 2019; Z79.899 Other long term (current) drug therapy; E78.5 Hyperlipidemia, unspecified; E87.1 Hypo-osmolality and hyponatremia; Z51.81 Encounter for therapeutic drug level monitoring; J96.01 Acute respiratory failure with hypoxia; I10 Essential (primary) hypertension; Z87.891 Personal history of nicotine dependence; U07.1 COVID-19

== ENCOUNTER 2022-02-17 18:13 | Inpatient (IN) ==
[2022-02-17 18:51] LABS: Basophils # (auto) 0.05 K/uL (0-0.2); Basophils % (auto) 0.4 %; Eosinophils # (auto) 0.04 K/uL (0-0.50); Eosinophils % (auto) 0.3 %; Hematocrit (blood only) 45.2 % (40.1-51.0); Immature Granulocytes # (auto) 0.07 K/uL (0.00-0.02); Immature Granulocytes % (auto) 0.5 %; Lymphocytes # (auto) 0.92 K/uL (1.2-3.4); Lymphocytes % (auto) 6.9 %; Mean Corpuscular Hgb Conc 35.4 g/dL (32.0-36.0); Mean Corpuscular Volume 90.4 fL (80.0-100.0); Mean Platelet Volume 8.9 fL (9.4-12.4); Neutrophils # (auto) 11.42 K/uL (1.4-6.5); Neutrophils % (auto) 85.9 %; Platelet Count 281 K/uL (130-400); RDW Coefficient of Variation 12.4 % (11.5-14.5); RDW Standard Deviation 40.8 fL (36.4-46.3)
[2022-02-17] MEDS ORDERED: ONDANSETRON INJ 2 MG/ML 2 ML VIAL IV STA (18:52)
[2022-02-17] MEDS ORDERED: SODIUM CHLORIDE 0.9% 1000ML 1,000 ML IV ONE (18:52)
--- NOTE | 2022-02-17 18:56 | Emergency Department Note ---
Impression & Plan Acute left flank pain, Nausea & vomiting ED Provider Note INFORMANT: Patient ED PROVIDER(S): Manuel Lee MD CHIEF COMPLAINT: Flank pain PLAN: Disposition: Admitted Condition: Good Outpatient prescription management: none Referral: None MEDICAL DECISION MAKING: Patient presented with acute flank pain. A work-up was initiated. The patient had an IV established. He was treated with normal saline, Zofran, Dilaudid. He did feel somewhat better with this but did require multiple doses of medication. He was also given IV Toradol. The patient was found to have a very large left- sided ureteral stone with hydro-. He had a mild leukocytosis on CBC. His other labs were unremarkable. Patient and significant other were informed of the findings. Patient has received multiple doses of medication to get him reasonably comfortable. He does not feel comfortable going home given the size of the stone and also history of urethral stricture. [facility] I also discussed the case with urology, Randell Giron PA-C. Patient was evaluated by both teams in the emergency department and admitted for further management. Triage Nursing notes reviewed and agree them. Vital Signs: reviewed and remarkable for no significant abnormalities Differential diagnosis: Renal colic, UTI, appendicitis, diverticulitis, mesenteric ischemia, aortic pathology, infections, inflammatory bowel disease, PUD, biliary pathology, as well as other pathologies. Diagnostics interpreted by me: ECG: none Cardiac Monitoring: none Imaging studies: CT scan as noted below. HPI: The patient is a 56year old male who presents to the Emergency Room with complaints of acute left flank pain. This started about an 3 hours ago and is colicky. The patient also notes the following associated symptoms, nausea and vomiting. The patient has found no relieving factors. Current pain is rated as 6/10. Patient states pain was over 10. He was concerned about food poisoning after eating a burrito. Pt denies LOC, headache, fevers, chills, diaphoresis, visual changes, neck pain, chest pain, breathing difficulties, midline or right- sided back pain, melena, hematochezia, urinary symptoms, numbness, weakness, lymphadenopathy, rash, or other complaints. ROS: See above HPI for pertinent positives & negatives. A total of 10 systems reviewed and were otherwise negative. 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 Oropharynx unremarkable. EYES: Normal conjunctiva. Sclera non-icteric. NECK: Inspection normal. Non-tender. Supple. No nuchal rigidity. FROM. No masses. RESPIRATORY: Clear to auscultation. No wheezes. No rales. Normal respiratory effort. CARDIAC: Normal rate. Normal rhythm. No murmurs. No rubs. Extremities warm and well perfused. Pulses equal. No JVD. GI: Soft, non-distended. Left flank tenderness to palpation. No rebound but mild guarding. No masses. RECTAL: Deferred. MUSCULOSKELETAL: Atraumatic. Chest examination reveals no tenderness. The back is symmetrical on inspection without obvious abnormality. There is no CVA tenderness to palpation. No joint edema. LOWER EXTREMITIES: Calves are equal size bilaterally and non-tender. No edema. No discoloration. NEURO: Normal sensorium. No sensory or motor deficits noted. SKIN: No rash or jaundice noted. Manuel Lee MD Past Med/Surg History Medical History COVID-19 Hyponatremia Hypoxia Pneumonia due to COVID-19 virus Surgical History H/O inguinal hernia repair H/O knee surgery H/O vasectomy Family History Other Depression Diabetes Hypertension Social History Smoking Status: Former smoker Tobacco Type: Cigarettes Hx Alcohol Use: Yes Alcohol type: beer, wine and hard liquor Alcohol Intake Frequency: Monthly or Less Hx Substance Use: No Preferred Language: Kyrgyz Communication Ability: Effective Unit Nurse Required: No Beliefs That Will Affect Care: None Current Living Situation: Spouse Current Living Situation Comment: Lives with Feels Safe at Home: Yes Assistive Devices: None Allergies Allergies Allergy/AdvReac Type Severity Reaction Status Date / Time No Known Allergies Allergy Unknown PT DENIES Verified 02/17/22 20:54 ALL ALLERGIES Home Meds Home Medications Medication Instructions Recorded Confirmed diphenhydramine HCl 25 mg capsule 25 mg PO HS 08/07/19 02/17/22 (Benadryl) hydrochlorothiazide 25 mg tablet 25 mg PO HS 08/07/19 02/17/22 lisinopril 20 mg tablet 20 mg PO HS 08/07/19 02/17/22 omeprazole magnesium 20 mg 20 mg PO HS 08/07/19 02/17/22 tablet,delayed release (Prilosec OTC) ascorbic acid (vitamin C) 1,000 mg 500 mg PO HS 12/19/20 02/17/22 tablet (Vitamin C) cholecalciferol (vitamin D3) 25 25 mcg PO HS 12/19/20 02/17/22 mcg (1,000 unit) tablet (Vitamin D3) magnesium 250 mg tablet 250 mg PO HS 12/19/20 02/17/22 selenium 200 mcg tablet 200 mcg PO HS 12/19/20 02/17/22 zinc 10 mg tablet 10 mg PO DAILY 12/21/20 02/17/22 omega-3s 300 [id number] 1 cap PO DAILY 02/17/22 02/17/22 [id number] oil 1,000 mg capsule ([place]-3 Fish Oil) Results & Data (ED) Vital Signs Vital Signs - 24 hr 02/17/22 18:22 02/17/22 20:26 Temperature 36.8 C Temperature Source Oral Pulse Rate 97 H Pulse Rate [Apical] 73 Pulse Rhythm Regular Pulse Rhythm [Apical] Regular Pulse Strength Normal Pulse Strength [Apical] Normal Respiratory Rate 20 18 Respiratory Effort / Characteristics Non-Labored Non-Labored Respiratory Depth Normal Normal Respiratory Pattern Regular Blood Pressure 156/96 H Blood Pressure [Left Arm] 140/89 Blood Pressure Mean 116 Blood Pressure Mean [Left Arm] 106 Blood Pressure Position Lying Blood Pressure Position [Left Arm] Lying Pulse Oximetry 99 97 Oxygen Delivery Method Room Air Room Air Sepsis Recent Fever Within 48 Hours No Sepsis New/Unexplained Change in Mental Status No Sepsis Action Taken by Nursing No Action Required Laboratory Data Result diagrams: 02/17/22 18:38 02/17/22 18:38 Lab Results 02/17/22 02/17/22 02/17/22 Range/Units 18:38 18:38 23:27 WBC 13.30 H (4.8-10.8) K/ul RBC 5.00 (4.63-6.08) M/uL Hgb 16.0 (14.0-18.0) g/dl Hct 45.2 (40.1-51.0) % MCV 90.4 (80.0-100.0) fL MCH 32.0 (25.0-34.0) pg MCHC 35.4 (32.0-36.0) g/dL RDW Std Deviation 40.8 (36.4-46.3) fL RDW Coeff of Angel 12.4 (11.5-14.5) % Plt Count 281 (130-400) K/uL MPV 8.9 L (9.4-12.4) fL Immature Gran % (Auto) 0.5 % Neut % (Auto) 85.9 % Lymph % (Auto) 6.9 % [place] % (Auto) 6.0 % Eos % (Auto) 0.3 % Baso % (Auto) 0.4 % Neut # (Auto) 11.42 H (1.4-6.5) K/uL Lymph # (Auto) 0.92 L (1.2-3.4) K/uL [place] # (Auto) 0.80 (0.24-0.82) K/uL Eos # (Auto) 0.04 (0-0.50) K/uL Baso # (Auto) 0.05 (0-0.2) K/uL Immature Gran # (Auto) 0.07 H (0.00-0.02) K/uL Sodium 135 L (136-145) mmol/L Potassium 4.2 (3.5-5.1) mmol/L Chloride 99 (98-107) mmol/L Carbon Dioxide 27 (21-32) mmol/L Anion Gap 9 (3-11) BUN 22 (6-23) mg/dl Creatinine 1.20 (0.6-1.4) mg/dl Est Cr Clr Drug Dosing 84.7 ml/min Est GFR ( Amer) 78.4 ml/min Est GFR (Non-Af Amer) 67.7 ml/min BUN/Creatinine Ratio 18.3 (10-20) Glucose 122 H (70-99(Fasting)) mg/dl Calcium 10.1 (8.5-10.1) mg/dl Total Bilirubin 1.4 H (0.2-1.0) mg/dl AST 90 H (13-39) U/L ALT 110 H (7-52) U/L Alkaline Phosphatase 84 (34-104) U/L Total Protein 8.5 H (6.0-8.3) gm/dl Albumin 5.1 H (3.4-5.0) gm/dl Globulin 3.4 (2.5-4.0) gm/dl Albumin/Globulin Ratio 1.5 (0.9-2) Lipase 33 (11-82) U/L SARS-CoV-2, RNA, NAAT NEGATIVE (NEGATIVE) Administered Medications Hydromorphone HCl (Hydromorphone Inj 0.5 Mg/0.5 Ml Syr) 0.5 mg IV Q15M PRN PRN Reason: Pain Stop: 03/03/22 18:51 Last Admin: 02/17/22 21:00 Dose: 0.5 mg Documented By: Admin: 02/17/22 19:33 Dose: 0.5 mg Documented By: RSMarika Admin: 02/17/22 18:59 Dose: 0.5 mg Documented By: RSMarika Discontinued Medications Sodium Chloride (Nss 1000ml) 1,000 mls @ 999 mls/hr IV .Q1H1M ONE Stop: 02/17/22 19:52 Last Infusion: 02/17/22 19:33 Dose: 0 mls/hr Documented By: Admin: 02/17/22 18:59 Dose: 999 mls/hr Documented By: LAUREN Ketorolac Tromethamine (Ketorolac Tromethamine 15 Mg/Ml Vial) 15 mg IV NOW STA Stop: 02/17/22 20:59 Last Admin: 02/17/22 21:06 Dose: 15 mg Documented By: LAUREN Ondansetron HCl (Ondansetron Inj 2 Mg/Ml 2 Ml Vial) 4 mg IV NOW STA Stop: 02/17/22 18:53 Last Admin: 02/17/22 18:59 Dose: 4 mg Documented By: LAUREN Tamsulosin HCl (Tamsulosin Hcl 0.4 Mg Cap) 0.4 mg PO NOW ONE Stop: 02/17/22 22:22 Last Admin: 02/17/22 22:40 Dose: 0.4 mg Documented By: [facility] Imaging Data Radiologist's Impression: Abdomen/Pelvis CT 02/17/22 18:[address] WITHOUT CONTRAST CT DOSE: 1509.84 mGy.cm HISTORY: Acute left-sided flank pain with nausea and vomiting Acute left flank pain, vomiting. TECHNIQUE: Multiaxial CT images of the abdomen and pelvis were performed without contrast. A dose lowering technique was utilized adhering to the principles of ALARA. COMPARISON STUDY: CT abdomen and pelvis 08/23/2021 FINDINGS: Mild cardiomegaly. Mild subsegmental bibasilar atelectasis. 3 mm subpleural solid nodule within the right middle lobe is unchanged and likely benign. No pneumatosis or pneumoperitoneum. Spleen is mildly enlarged, 14.5 cm in length. Unremarkable pancreas and left adrenal gland. Postoperative changes suggestive of interval right adrenal gland resection. Unremarkable gallbladder. Hepatic steatosis. Mild nonspecific bilateral perinephric stranding. Punctate nonobstructing calculus of the superior pole right kidney. No left-sided renal calculi identified. There is mild left-sided hydroureteronephrosis secondary to an obstructing 8 x 6 x 8 mm calculus of the left ureter at the level of L5-S1. Urinary bladder wall thickening with partial distention. Prostamegaly. Small fat filled right inguinal hernia. Aorta and IVC are unremarkable. No lymphadenopathy. Small hiatal hernia. No bowel obstruction or bowel wall thickening. Colonic diverticulosis. No CT evidence of acute appendicitis. Stranding within the periumbilical subcutaneous tissues is likely on a postsurgical basis. Small supraumbilical fat filled hernia, diastases 1.3 cm. There is a postoperative defects within the right lateral aspect of the abdominal wall musculature involving the transverse abdominis and internal oblique muscles. Mesenteric fat and ascending colon extend into the hernia defect. There is stranding with surgical suture material involving the adjacent subcutaneous tissues. No acute fracture. Moderate L5-S1 intervertebral disc space narrowing with posterior disc osteophyte complex. IMPRESSION: 1. Mild left-sided hydroureteronephrosis secondary to an obstructing 8 mm calculus of the left ureter at the level of L5-S1. 2. Punctate nonobstructing right renal calculus. 3. Interval resection of the right adrenal gland. There are postoperative changes of the abdominal wall with a postoperative hernia involving the right lateral abdominal wall musculature. Mesenteric fat and nonobstructed colon extends into the hernia defect. 4. Hepatic steatosis. 5. Small hiatal hernia. 6. Additional findings as above. ACT 112: Negative or not required by law. The above report was generated using voice recognition software. It may contain grammatical, syntax or spelling errors. Electronically signed by: Soham Forte M.D. 02/17/2022 8:40 PM Discharge Plan Visit Data Chief Complaint: Abdominal Pain Stated Complaint: abdominal pain ED Provider: Manuel Lee Discharge Problem: Acute left flank pain, Nausea & vomiting Forms Stand Alone Forms: [facility] [place] [employer] Prescriptions Prescriptions: No Action lisinopril 20 mg tablet 20 mg PO HS diphenhydramine HCl [Benadryl] 25 mg Capsule 25 mg PO HS hydrochlorothiazide 25 mg tablet 25 mg PO HS omeprazole magnesium [Prilosec OTC] 20 mg Tablet,Delayed Release (Dr/Ec) 20 mg PO HS ascorbic acid (vitamin C) [Vitamin C] 1,000 mg Tablet 500 mg PO HS selenium 200 mcg Tablet 200 mcg PO HS magnesium 250 mg Tablet 250 mg PO HS cholecalciferol (vitamin D3) [Vitamin D3] 25 mcg (1,000 unit) Tablet 25 mcg PO HS [place]-3 Fish Oil 300-1,000 mg Capsule 1 cap PO DAILY zinc 10 mg Tablet 10 mg PO DAILY Referrals Referrals: Edi Winters DO [Primary Care Provider] -
[2022-02-17] MEDS: HYDROmorphone INJ 0.5 MG/0.5 ML SYR IV PRN ×3 (18:59→21:00)
[2022-02-17 19:22] LABS: Albumin Globulin Ratio 1.5 (0.9-2); Albumin Level 5.1 gm/dl (3.4-5.0); BUN Creatinine Ratio 18.3 (10-20); Bilirubin,Total 1.4 mg/dl (0.2-1.0); Calcium 10.1 mg/dl (8.5-10.1); Creatinine Clr Calc Pharmacy 84.7 ml/min; Est GFR (African American) 78.4 ml/min; Est GFR (Non-African American) 67.7 ml/min; Globulin 3.4 gm/dl (2.5-4.0); Potassium 4.2 mmol/L (3.5-5.1); Total Protein 8.5 gm/dl (6.0-8.3)
--- NOTE | 2022-02-17 20:43 | CT Scan Report ---
ABDOMEN AND PELVIS CT WITHOUT CONTRAST CT DOSE: 1509.84 mGy.cm HISTORY: Acute left-sided flank pain with nausea and vomiting Acute left flank pain, vomiting. TECHNIQUE: Multiaxial CT images of the abdomen and pelvis were performed without contrast. A dose lo wering technique was utilized adhering to the principles of ALARA. COMPARISON STUDY: CT abdomen and pelvis 08/23/2021 FINDINGS: Mild cardiomegaly. Mild subsegmental bibasilar atelectasis. 3 mm subpleural solid nodule wi thin the right middle lobe is unchanged and likely benign. No pneumatosis or pneumoperitoneum. Spleen is mildly enlarged, 14.5 cm in length. Unremarkable pancreas and left adrenal gland. Postoperative c hanges suggestive of interval right adrenal gland resection. Unremarkable gallbladder. Hepatic steato sis. Mild nonspecific bilateral perinephric stranding. Punctate nonobstructing calculus of the superior po le right kidney. No left-sided renal calculi identified. There is mild left-sided hydroureteronephros is secondary to an obstructing 8 x 6 x 8 mm calculus of the left ureter at the level of L5-S1. Urinar y bladder wall thickening with partial distention. Prostamegaly. Small fat filled right inguinal orly ia. Aorta and IVC are unremarkable. No lymphadenopathy. Small hiatal hernia. No bowel obstruction or bowel wall thickening. Colonic diverticulosis. No CT elisa dence of acute appendicitis. Stranding within the periumbilical subcutaneous tissues is likely on a p ostsurgical basis. Small supraumbilical fat filled hernia, diastases 1.3 cm. There is a postoperative defects within the right lateral aspect of the abdominal wall musculature involving the transverse a bdominis and internal oblique muscles. Mesenteric fat and ascending colon extend into the hernia defe ct. There is stranding with surgical suture material involving the adjacent subcutaneous tissues. No acute fracture. Moderate L5-S1 intervertebral disc space narrowing with posterior disc osteophyte com plex. IMPRESSION: 1. Mild left-sided hydroureteronephrosis secondary to an obstructing 8 mm calculus of the left ureter at the level of L5-S1. 2. Punctate nonobstructing right renal calculus. 3. Interval resection of the right adrenal gland. There are postoperative changes of the abdominal wa ll with a postoperative hernia involving the right lateral abdominal wall musculature. Mesenteric fat and nonobstructed colon extends into the hernia defect. 4. Hepatic steatosis. 5. Small hiatal hernia. 6. Additional findings as above. ACT 112: Negative or not required by law. The above report was generated using voice recognition software. It may contain grammatical, syntax o r spelling errors. Electronically signed by: Soham Forte M.D. 02/17/2022 8:40 PM
[2022-02-17] MEDS ORDERED: KETOROLAC TROMETHAMINE 15 MG/ML VIAL IV STA (20:58)
--- NOTE | 2022-02-17 22:18 | Urology Consultation ---
Date of Consultation February 17, 2022 Assessment & Plan (1) Nephrolithiasis: I discussed with the treating emergency room physician and he is having the patient admitted on the hospitalist service. We recommend proceeding as follows: Provide analgesics Provide antiemetics Provide hydration with IV fluids Recommend initiating Flomax for maximal expulsion therapy Urinalysis has been ordered and is pending. We will follow for results of these and treat with antibiotics if indicated If patient is unable to void would recommend bladder scanning the patient to determine if he is retaining urine We will make the patient n.p.o. after midnight tonight as I feel the likelihood of passing an 8 mm stone is unlikely and he may require cystoscopy I discussed with the patient he may require cystoscopy and if he is noted to have a significant urethral stricture this could be dilated simultaneously At the present time the patient is normotensive without tachycardia. He only has a slight elevation of his white blood cell count and does not appear septic. Therefore do not feel an emergent urologic procedure is required this evening. We will continue to monitor the patient with additional recommendations to follow History of Present Illness Reason for Consultation: Nephrolithiasis History of Present Illness This is a 56-year-old male who presented to the [facility] emergency department secondary to left-sided flank pain. Patient notes he was in his usual state of health however approximately 3 hours prior to arriving to the emergency department he noted some left-sided flank pain that radiated to the front of his abdomen. He had had associated nausea and vomiting. He denies any fevers, shakes, but did report an episode of hot flashes. He denies any dysuria or hematuria. He does note that he was most recently able to void at approximately 3:30 PM today but has not voided since. In addition the patient reports a history of a urethral stricture which she had to have dilated in the past. He thinks his most recent urethral dilatation was approximately 2 years ago. Patient notes that he has never had kidney stones in the past. Since arrival to the emergency department patient has had labs and imaging which I am panel reviewed. A CT scan of the abdomen pelvis showed the patient had left-sided hydronephrosis secondary to an 8 mm obstructing kidney stone. CBC revealed white blood cell count was 13.3. Hemoglobin, hematocrit, and platelet count were normal. Chemistry profile showed sodium is 135. Potassium, BUN, and creatinine were normal. Patient did have a slight elevation of his total bilirubin at 1.4 his AST and ALT were elevated at 90 and 110 respectively. Alkaline phosphatase was normal. His lipase was normal. The patient notes he leads an active lifestyle when he is feeling well. He feels as though he can walk on a flat surface for 1 mile or up 2-3 flights of steps without any chest pain or shortness of breath. He notes he is not diabetic and does not smoke. At the time of my interview he was resting comfortably in bed and he was in no distress. Allergies Allergy/AdvReac Type Severity Reaction Status Date / Time No Known Allergies Allergy Unknown PT DENIES Verified 02/17/22 20:54 ALL ALLERGIES Home Medications Medication Instructions Recorded Confirmed Type diphenhydramine HCl 25 mg capsule 25 mg PO HS 08/07/19 02/17/22 History (Benadryl) hydrochlorothiazide 25 mg tablet 25 mg PO HS 08/07/19 02/17/22 History lisinopril 20 mg tablet 20 mg PO HS 08/07/19 02/17/22 History omeprazole magnesium 20 mg 20 mg PO HS 08/07/19 02/17/22 History tablet,delayed release (Prilosec OTC) ascorbic acid (vitamin C) 1,000 mg 500 mg PO HS 12/19/20 02/17/22 History tablet (Vitamin C) cholecalciferol (vitamin D3) 25 25 mcg PO HS 12/19/20 02/17/22 History mcg (1,000 unit) tablet (Vitamin D3) magnesium 250 mg tablet 250 mg PO HS 12/19/20 02/17/22 History selenium 200 mcg tablet 200 mcg PO HS 12/19/20 02/17/22 History zinc 10 mg tablet 10 mg PO DAILY 12/21/20 02/17/22 History omega-3s 300 rg-tns-rkx-other 1 cap PO DAILY 02/17/22 02/17/22 History [id number] oil 1,000 mg capsule ([place]-3 Fish Oil) Patient History Medical History COVID-19 Hyponatremia Hypoxia Pneumonia due to COVID-19 virus Surgical History H/O inguinal hernia repair H/O knee surgery H/O vasectomy Family History Other Depression Diabetes Hypertension Social History Smoking Status: Never smoker Tobacco Type: Cigarettes Hx Alcohol Use: Yes Alcohol type: beer, wine and hard liquor Alcohol Intake Frequency: Monthly or Less Hx Substance Use: No Preferred Language: Gu[place]ian Communication Ability: Effective Post Office Manager Required: No Beliefs That Will Affect Care: None Current Living Situation: Spouse and Family Current Living Situation Comment: and daughter Other Information That Helps Us Care for You: No Feels Safe at Home: Yes Safety Concerns: Feels Safe At This Time Assistive Devices: None Review of Systems Constitutional: no fever Eyes: no diplopia Ear, Nose, Mouth, Throat: no ear pain Respiratory: no cough Cardiovascular: no chest pain Gastrointestinal: + abdominal pain (Radiating from left flank), + nausea and + vomiting Genitourinary: + as per Subjective / HPI Musculoskeletal: + back pain (Left flank) Integumentary: no rash Neurologic: no localized weakness Physical Exam Constitutional: WD/WN, vitals as above Eyes: no conjunctival abnormality ENMT: Ears: no hearing impairment and no external ear abnormality Mouth: no oropharynx abnormality Neck: trachea midline Respiratory: normal respiratory effort; no respiratory distress and no labored breathing Cardiovascular: Rate/Rhythm: regular rate and regular rhythm Gastrointestinal (Abdomen): Soft, nondistended, nonrigid. There is some slight pain with palpation on the left side of his abdomen Musculoskeletal: No calf tenderness Skin: no rashes Neurologic: moves all extremities Psychiatric: A+Ox3, euthymic affect Genitourinary: + CVA tenderness (Left-sided) Results & Data ([facility]) Vital Signs (Past 12 Hours) Vital Signs Temp Pulse Pulse Resp BP BP Pulse Ox 02/17/22 20:26 73 18 140/89 97 02/17/22 18:22 36.8 C 97 H 20 156/96 H 99 O2 Del Method 02/17/22 20:26 Room Air 02/17/22 18:22 Room Air PG Care Time/CCT Total # of Minutes Spent Total Time Spent with Patient: Total time spent is greater than 50% in coordination of care (as documented) at patient's floor/unit and/or counseling patient: Coding Level of Care Code 30316 Inpt Consult Level 5 Diagnoses Nephrolithiasis N20.0
[2022-02-17] MEDS ORDERED: TAMSULOSIN HCL 0.4 MG CAP PO ONE (22:21)
--- NOTE | 2022-02-18 01:46 | History and Physical Report ---
DATE OF ADMISSION: 02/18/2022. CHIEF COMPLAINT: Left renal colic. HISTORY OF PRESENT ILLNESS: A 56-year-old male with past medical history significant for hyperlipidemia, chronic rhinitis, hypertension, obesity, reflux esophagitis, history of depression, history of umbilical hernia, right adrenal mass, status post surgery, comes because of right flank pain. The pain started about 2 o'clock in the afternoon, that is very severe left flank pain, was radiating to the front of the abdomen. He also has some nausea and dry heaves. He says he did not micturate since 2:00 p.m., came to the hospital and found to have 8-mm obstructing calculus of the left ureter. After pain medication, his pain is improved. Currently, resting comfortably, hemodynamically stable. Denies any headache, no dizziness, no blurred visions, no earache, no runny nose, no sore throat, no cough. His appetite was okay before this episode. No chest pain, no shortness of breath, no diarrhea or constipation. No swelling in the legs. ALLERGIES: No known drug allergies. PAST MEDICAL HISTORY: As mentioned above. PAST SURGICAL HISTORY: Colonoscopy, cystoscopy for treatment of stricture, right laparoscopic adrenalectomy on 11/08/2021, removal of left eyelid lesion, inguinal hernia repair, umbilical hernia repair on 11/08/2021. Urethrocystography injection, vasectomy. MEDICATIONS: The patient is on vitamin C 500 mg p.o. at bedtime, vitamin D 25 mcg p.o. at bedtime, Benadryl 25 mg p.o. at bedtime, hydrochlorothiazide 25 mg p.o. at bedtime, lisinopril 20 mg p.o. at bedtime, magnesium 250 mg p.o. daily, omega fish oil one capsule daily, omeprazole 20 mg p.o. at bedtime, selenium 200 mcg p.o. at bedtime, zinc 20 mg p.o. daily. FAMILY HISTORY: Significant for father had diabetes; mother has hypertension and depression. SOCIAL HISTORY: . Quit smoking in 1989. Alcohol, rare. No drug use. REVIEW OF SYSTEMS: As per HPI. Rest of the review of systems is negative. PHYSICAL EXAMINATION: GENERAL: The patient is of moderate build, not in acute distress. VITAL SIGNS: Temperature 36.8, pulse 73, respiratory rate 18, blood pressure 140/89, oxygen 97% on room air. HEENT: Pupils equal, round and reactive to light. Oral mucosa moist. NECK: No JVD, no neck masses. CARDIOVASCULAR: S1 and S2 heard. Regular rate and rhythm. No murmur, no gallop. RESPIRATORY: Normal AP diameter. No accessory muscle use. No wheezing. No crackles. ABDOMEN: Soft, bowel sounds present, nontender, no distention, no guarding. CENTRAL NERVOUS SYSTEM: Cranial nerves II through XII are grossly intact, nonfocal. EXTREMITIES: Mild pedal edema, no erythema seen. LABORATORY DATA: WBC 13.3, hemoglobin 16, hematocrit 45.2, platelets 281. Sodium 135, potassium 4.2, chloride 99, bicarbonate 27, BUN 22, creatinine 1.2, serum glucose 132, calcium 10.1, total bilirubin 1.4, AST 90, ALT 110, alkaline phosphatase 84. SARS-CoV-2 rapid test negative. Lipase 33. IMAGING DATA: CT abdomen and pelvis without contrast, mild left-sided hydroureteronephrosis secondary to obstructing 8-mm calculus of the left ureter at the level of L5-S1. Punctate nonobstructing right renal calculus. Interval resection of the right adrenal gland. Hepatic steatosis, small hiatal hernia. ASSESSMENT AND PLAN: This is a 56-year-old male who presents with left renal colic. 1. Left renal colic, 8-mm obstructing left ureteral stone: Seen by urology. Most likely plan for cystoscopy in the a.m. We will follow urinalysis. If positive, start on antibiotics. Pain controlled with IV Dilaudid p.r.n., IV fluids, IV antiemetics, n.p.o. Monitor in the medical floor. 2. History of hypertension: Continue his lisinopril, hydrochlorothiazide. Monitor the blood pressure. 3. Obesity: Needs counseling. 4. Gastroesophageal reflux disease: On omeprazole. 5. History of right adrenal mass, status post surgery. 6. History of umbilical hernia, status post repair. 7. Deep venous thrombosis prophylaxis: SCDs. 8. Elevated LFTs. We will follow with repeat labs. DISPOSITION: Closely monitor in the medical floor. Expect to discharge home and follow with family doctor. Job ID: [id number] [facility]
[2022-02-18] MEDS ORDERED: ONDANSETRON INJ 2 MG/ML 2 ML VIAL IV PRN ×2 (02:36→09:49)
[2022-02-18] MEDS ORDERED: ACETAMINOPHEN 325 MG TAB PO PRN (02:36)
[2022-02-18] MEDS: SODIUM CHLORIDE 0.9% 1000ML 1,000 ML IV SCH ×2 (02:50→12:50)
[2022-02-18] MEDS: HYDROmorphone INJ 0.5 MG/0.5 ML SYR IV PRN ×2 (04:39→09:27)
[2022-02-18 04:44] LABS: Appearance Urine Clear (Clear); Bacteria Urine Automated Negative (Negative); Bilirubin Urine Negative (Negative); Blood Urine Negative (Negative); Color Urine Yellow; Glucose Urine UA Negative (Negative); Ketones Urine Trace (Negative); Leukocyte Esterase Urine Negative (Negative); Nitrite Urine Negative (Negative); Protein Urine Trace (Negative); Specific Gravity Urine 1.025 (1.000-1.030); Urobilinogen Urine Negative (Negative); pH Urine 5.5 (4.5-7.5)
--- NOTE | 2022-02-18 07:11 | Anesthesiology Consultation ---
Date of Service February 18, 2022 Assessment & Plan (1) Encounter for pre-operative examination: Chart Review Chart Review: manager entry initiated History Surgery Operation Date: 02/18/22 10:00 Proposed Procedures p Cystoscopy - Christos Manley MD s Ureteral Stent Insertion/Removal - Christos Manley MD Height/Weight Height: 5 ft 7 in Weight: 116 kg Allergies Allergy/AdvReac Type Severity Reaction Status Date / Time No Known Allergies Allergy Unknown PT DENIES Verified 02/17/22 20:54 ALL ALLERGIES Medications Home Medications Medication Instructions Recorded Confirmed Last Taken diphenhydramine HCl 25 mg capsule 25 mg PO HS 08/07/19 02/17/22 12/20/20 (Benadryl) hydrochlorothiazide 25 mg tablet 25 mg PO HS 08/07/19 02/17/22 12/20/20 lisinopril 20 mg tablet 20 mg PO HS 08/07/19 02/17/22 12/20/20 omeprazole magnesium 20 mg 20 mg PO HS 08/07/19 02/17/22 12/20/20 tablet,delayed release (Prilosec OTC) ascorbic acid (vitamin C) 1,000 mg 500 mg PO HS 12/19/20 02/17/22 12/20/20 tablet (Vitamin C) cholecalciferol (vitamin D3) 25 25 mcg PO HS 12/19/20 02/17/22 12/20/20 mcg (1,000 unit) tablet (Vitamin D3) magnesium 250 mg tablet 250 mg PO HS 12/19/20 02/17/22 12/18/20 selenium 200 mcg tablet 200 mcg PO HS 12/19/20 02/17/22 12/18/20 zinc 10 mg tablet 10 mg PO DAILY 12/21/20 02/17/22 Unknown omega-3s 300 [id number] 1 cap PO DAILY 02/17/22 02/17/22 Unknown [id number] oil 1,000 mg capsule ([place]-3 Fish Oil) Active Medications Generic Name Dose Route Start Last Admin Trade Name Freq PRN Reason Stop Dose Admin Hydromorphone HCl 0.5 mg 02/18/22 02:36 02/18/22 04:39 Hydromorphone Inj 0.5 Mg/0.5 Ml Syr IV 03/04/22 02:35 0.5 mg Q3H PRN Administration Pain Sodium Chloride 1,000 mls @ 125 mls/hr 02/18/22 02:36 02/18/22 02:50 Nss 1000ml IV 03/20/22 02:35 125 mls/hr .Q8H STEPHANIE Administration Past Medical History Medical History COVID-19 Hyponatremia Hypoxia Pneumonia due to COVID-19 virus Past Family History Family History Other Depression Diabetes Hypertension Past Surgical History Surgical History H/O inguinal hernia repair H/O knee surgery H/O vasectomy Social History Smoking Status: Never smoker Hx Alcohol Use: Yes Alcohol type: beer, wine and hard liquor alcohol intake frequency: holidays/special occasions only Hx Substance Use: No Physical Exam Vital Signs Last Vital Signs Temp 97.9 F 02/18/22 06:59 Pulse 67 02/18/22 06:59 Resp 18 02/18/22 06:59 BP 129/76 02/18/22 06:59 Pulse Ox 98 02/18/22 06:59 O2 Del Method 02/18/22 06:59 Testing Laboratory Results 02/17/22 18:38 02/17/22 18:38 Urine Color Yellow 02/18/22 04:10 Urine Appearance Clear (Clear) 02/18/22 04:10 Urine pH 5.5 (4.5-7.5) 02/18/22 04:10 Ur Specific [place] 1.025 (1.000-1.030) 02/18/22 04:10 Urine Protein Trace (Negative) H 02/18/22 04:10 Urine Glucose (UA) Negative (Negative) 02/18/22 04:10 Urine Ketones Trace (Negative) H 02/18/22 04:10 Urine Nitrite Negative (Negative) 02/18/22 04:10 Ur Leukocyte Esterase Negative (Negative) 02/18/22 04:10 Urine WBC (Auto) 1-5 /hpf (0-5) 02/18/22 04:10 Urine RBC (Auto) 5-10 /hpf (0-4) H 02/18/22 04:10 U Hyaline Cast (Auto) 5-10 /lpf (0-5) H 02/18/22 04:10 U Epithel Cells (Auto) 5-10 /lpf (0-5) H 02/18/22 04:10 Urine Bacteria (Auto) Negative (Negative) 02/18/22 04:10 Electrocardiogram Date: 08/23/21 Poor data quality, interpretation may be adversely affected Sinus tachycardia, rate 103 bpm Otherwise normal ECG When compared with ECG of 21-DEC-2020 10:18, No significant change was found Confirmed by Christos Banerjee ([id number]) on 08/23/2021 10:49:36 AM
[2022-02-18 08:09] LABS: Basophils # (auto) 0.04 K/uL (0-0.2); Basophils % (auto) 0.4 %; Eosinophils # (auto) 0.13 K/uL (0-0.50); Eosinophils % (auto) 1.4 %; Hematocrit (blood only) 37.6 % (40.1-51.0); Hemoglobin 13.5 g/dl (14.0-18.0); Immature Granulocytes # (auto) 0.04 K/uL (0.00-0.02); Immature Granulocytes % (auto) 0.4 %; Lymphocytes # (auto) 1.91 K/uL (1.2-3.4); Lymphocytes % (auto) 21.1 %; Mean Corpuscular Hemoglobin 32.1 pg (25.0-34.0); Mean Corpuscular Hgb Conc 35.9 g/dL (32.0-36.0); Mean Corpuscular Volume 89.5 fL (80.0-100.0); Mean Platelet Volume 8.9 fL (9.4-12.4); Monocytes # (auto) 1.04 K/uL (0.24-0.82); Monocytes % (auto) 11.5 %; Neutrophils # (auto) 5.91 K/uL (1.4-6.5); Neutrophils % (auto) 65.2 %; Platelet Count 224 K/uL (130-400); RDW Coefficient of Variation 12.6 % (11.5-14.5); RDW Standard Deviation 41.3 fL (36.4-46.3); White Blood Count 9.07 K/ul (4.8-10.8)
[2022-02-18 08:32] LABS: Albumin Level 3.7 gm/dl (3.4-5.0); Bilirubin Direct 0.2 mg/dl (0-0.2); Bilirubin,Total 1.4 mg/dl (0.2-1.0); Calcium 8.7 mg/dl (8.5-10.1); Creatinine Clr Calc Pharmacy 85.4 ml/min; Est GFR (African American) 79.2 ml/min; Est GFR (Non-African American) 68.4 ml/min; Magnesium 1.9 mg/dl (1.7-2.4); Potassium 3.7 mmol/L (3.5-5.1); Total Protein 6.2 gm/dl (6.0-8.3)
--- NOTE | 2022-02-18 08:56 | Urology Progress Note ---
Date of Service February 18, 2022 Assessment & Plan (1) Nephrolithiasis: (2) Urethral stricture: Plan Acute left ureteral obstruction from nephrolithiasis; chronic urethral stricture Plan for intervention today in the form of cystoscopy, left ureteral stent placement We may or may not have to deal with the stricture during this procedure, he is very understanding He will be consented for both stent and direct vision internal urethrotomy If he undergoes DVIU he will require catheterization for several days post procedure Admission and Anticipated Discharge Date Admission Date: February 18, 2022 Subjective No major changes overnight Hemodynamically stable Still with intermittent left flank pain Voiding pattern has been modestly problematic for several years He does have a history of urethral stricture but also suspect that he has some prostate driven obstruction Most recent urological care was around 2 years ago in [place] He is prepared to move forward with a cystoscopy and left ureteral stent this morning, he does understand that we could encounter his urethral stricture and it may require treatment today Physical Exam Constitutional: well developed and well nourished Respiratory: no respiratory distress Cardiovascular: Extremities: no pedal edema Gastrointestinal (Abdomen): Inspection/Auscultation: abdomen normal to inspection Results & Data ([facility]) Vital Signs (Past 12 Hours) Vital Signs Temp Pulse Pulse Pulse Resp BP BP 02/18/22 07:40 02/18/22 06:59 36.6 C 67 18 129/76 02/18/22 02:40 37.1 C 86 16 128/87 02/18/22 02:00 74 18 110/73 02/18/22 00:00 68 18 109/70 02/18/22 01:54 78 125/73 Pulse Ox O2 Del Method 02/18/22 07:40 Room Air 02/18/22 06:59 98 Room Air 02/18/22 02:40 97 Room Air 02/18/22 02:00 98 02/18/22 00:00 95 02/18/22 01:54 93 Room Air PG Care Time/CCT Total # of Minutes Spent Total Time Spent with Patient: Total time spent is greater than 50% in coordination of care (as documented) at patient's floor/unit and/or counseling patient: Coding Level of Care Code 85060 Subseq Hosp Care Lvl 3 Diagnoses Nephrolithiasis N20.0 Urethral stricture N35.919
[2022-02-18] MEDS ORDERED: TAMSULOSIN HCL 0.4 MG CAP PO SCH (09:00)
[2022-02-18] MEDS ORDERED: ATROPINE SULFATE 0.1 MG/ML 10ML SYR IV PRN (09:49)
[2022-02-18] MEDS ORDERED: fentaNYL citrate 100 MCG/2 ML VIAL IV PRN (09:49)
[2022-02-18] MEDS ORDERED: ePHEDrine sulfate 50 MG/ML AMP IV PRN (09:49)
[2022-02-18] MEDS ORDERED: fentaNYL citrate 100 MCG/2 ML VIAL ONE (09:59)
[2022-02-18] MEDS ORDERED: KETAMINE 50 MG/5 ML SYRINGE ONE (09:59)
[2022-02-18] MEDS ORDERED: PROPOFOL IV EMULSION 10 MG/ML 20 ML VIAL IV ONE (09:59)
[2022-02-18] MEDS ORDERED: MIDAZOLAM HCL 1 MG/ML 2ML VIAL ONE (09:59)
--- NOTE | 2022-02-18 10:30 | Operative Report ---
PG Post Operative Report Pre & Post Diagnosis Operation Date: 02/18/22 10:00 Preoperative diagnosis: Left ureteral calculus, urethral stricture Postoperative diagnosis: Left ureteral calculus, urethral stricture I identified the patient and participated in the time-out.: Yes Procedure Operation Date: 02/18/22 10:00 Procedure: Cystoscopy, left ureteral stent placement Surgeon Christos Manley MD Machine Filler Servicer None Estimated Blood Loss 0 Findings Consistent with Post-Op Diagnosis Specimens none Description of Procedure The patient was identified in the preoperative holding area, appropriate informed consents were reviewed and completed and the patient was transferred to the operative suite. Upon arrival, appropriate antibiotics and anesthesia were administered and the patient was placed in dorsal lithotomy position and prepped and draped in sterile fashion. To begin the case I passed a 22 Brazilian cystoscope with 30 degree lens. Inspection revealed healthy distal urethra but in the bulb there was notable stricture which I was able to navigate through with the scope. This dilated the stricture adequately without traumatizing the tissues. Prostate was moderately enlarged with a relatively high bladder neck. Inspection of the bladder was relatively unremarkable. Ureteral orifices were in orthotopic position. I turned my attention to the left UO and cannulated with a sensor wire and a 5 Brazilian open-ended catheter. The wire was advanced the kidney without difficulty. I then placed a 6 Brazilian by 26 cm double-J stent seeing good curl in the kidney as well as the bladder. Bladder was decompressed and the case concluded. He was reversed of anesthesia and taken to the recovery room in stable condition. I attest to the content of the Intraoperative Record and any orders documented therein. Any exceptions are noted below.
--- NOTE | 2022-02-18 10:55 | Anesthesiology Progress Note ---
Date of Service February 18, 2022 Anesthesia Post Procedure Vital Signs Vital Signs: Temp Pulse Pulse Pulse Resp BP BP 02/18/22 10:50 97.3 F L 106 H 17 133/88 02/18/22 10:40 109 H 15 131/88 02/18/22 10:32 97.2 F L 118 H 18 109/91 02/18/22 07:40 02/18/22 06:59 97.9 F 67 18 129/76 02/18/22 02:40 98.8 F 86 16 128/87 02/18/22 02:00 74 18 110/73 02/18/22 00:00 68 18 109/70 02/18/22 01:54 78 125/73 02/17/22 20:26 73 18 140/89 02/17/22 18:22 98.2 F 97 H 20 156/96 H Pulse Ox O2 Del Method O2 Flow Rate 02/18/22 10:50 94 Room Air 02/18/22 10:40 99 Oxymask 5 02/18/22 10:32 96 Oxymask 5 02/18/22 07:40 Room Air 02/18/22 06:59 98 Room Air 02/18/22 02:40 97 Room Air 02/18/22 02:00 98 02/18/22 00:00 95 02/18/22 01:54 93 Room Air 02/17/22 20:26 97 Room Air 02/17/22 18:22 99 Room Air Pain Intensity Left Lower Abdomen: Pain Intensity: 3 Transfer of Care Handoff Completed per policy Notes Mental Status: alert / awake / arousable and participated in evaluation Patient Amnestic to Procedure: Yes Nausea / Vomiting: adequately controlled Pain: adequately controlled Airway Patency, RR, SpO2: stable & adequate BP & HR: stable & adequate Hydration State: stable & adequate Anesthetic Complications: no major complications apparent and Pt Satisfied with anesthetic care
--- NOTE | 2022-02-18 11:17 | Fluoroscopy Report ---
FL KUB CLINICAL HISTORY: CYSTO/STENT LT COMPARISON STUDY: None. FLUOROSCOPY TIME: 4 seconds. FINDINGS: A single fluoroscopic spot image of the abdomen demonstrates placement of a left ureteral s tent. Only the proximal portion of the ureteral stent is identified and appears in good position. IMPRESSION: Fluoroscopic assistance provided for left ureteral stent placement. ACT 112: Negative or not required by law. Electronically signed by: Donnie Pineda M.D. 02/18/2022 11:15 AM
[2022-02-18] MEDS ORDERED: CIPROFLOXACIN / D5W 400 MG/200 ML BAG IV ONE (11:30)
--- NOTE | 2022-02-18 14:03 | Discharge Summary ---
Date of Service February 18, 2022 Admission HPI Per Admitting Provider A 56-year-old male with past medical history significant for hyperlipidemia, chronic rhinitis, hypertension, obesity, reflux esophagitis, history of depression, history of umbilical hernia, right adrenal mass, status post surgery, comes because of right flank pain. The pain started about 2 o'clock in the afternoon, that is very severe left flank pain, was radiating to the front of the abdomen. He also has some nausea and dry heaves. He says he did not micturate since 2:00 p.m., came to the hospital and found to have 8-mm obstructing calculus of the left ureter. After pain medication, his pain is improved. Currently, resting comfortably, hemodynamically stable. Denies any headache, no dizziness, no blurred visions, no earache, no runny nose, no sore throat, no cough. His appetite was okay before this episode. No chest pain, no shortness of breath, no diarrhea or constipation. No swelling in the legs. Admission Exam Per Admitting Provider GENERAL: The patient is of moderate build, not in acute distress. VITAL SIGNS: Temperature 36.8, pulse 73, respiratory rate 18, blood pressure 140/89, oxygen 97% on room air. HEENT: Pupils equal, round and reactive to light. Oral mucosa moist. NECK: No JVD, no neck masses. CARDIOVASCULAR: S1 and S2 heard. Regular rate and rhythm. No murmur, no gallop. RESPIRATORY: Normal AP diameter. No accessory muscle use. No wheezing. No crackles. ABDOMEN: Soft, bowel sounds present, nontender, no distention, no guarding. CENTRAL NERVOUS SYSTEM: Cranial nerves II through XII are grossly intact, nonfocal. EXTREMITIES: Mild pedal edema, no erythema seen Principal Diagnosis left obstructing ureteral stone with left hydronephrosis Discharge Exam GENERAL: The patient is of moderate build, not in acute distress. HEENT: Pupils equal, round and reactive to light. Oral mucosa moist. NECK: No JVD, no neck masses. CARDIOVASCULAR: S1 and S2 heard. Regular rate and rhythm. No murmur, no gallop. RESPIRATORY: Normal AP diameter. No accessory muscle use. No wheezing. No crackles. ABDOMEN: Soft, bowel sounds present, nontender, no distention, no guarding. CENTRAL NERVOUS SYSTEM: Cranial nerves II through XII are grossly intact, nonfocal. EXTREMITIES: Mild pedal edema, no erythema seen Discharge Data Allergies Allergy/AdvReac Type Severity Reaction Status Date / Time No Known Allergies Allergy Unknown PT DENIES Verified 02/17/22 20:54 ALL ALLERGIES Consultations 02/18/22 02:36 Consult Urology Routine Procedures Performed Operation Date: 02/18/22 10:00 Actual Procedures p Cystoscopy(Not Applicable) - Christos Manley MD s Left Ureteral Stent Insertion(Left) - Christos Manley MD Ordered Studies 02/17/22 18:52 CT Abd and Pelvis [CT abd pelvis wo con] Stat 02/18/22 FL KUB Routine Hospital Course (1) Ureteral stone with hydronephrosis: - presented with left flank pain - found to have 8mm left obstructing ureteral stone with hydronephrosis on imagin - Cr 1.2, baseline around 1.0 - IVF, pain medication - s/p left ureteral stent placement by Urology 02/18/2022 - ok for discharge per Urology with follow to be set up by Urology and call to patient on Sunday02/20/2022 - to be discharge with 6 doses of ciprofloxacin - definitive therapy to be done outpatient if necessary (2) Urethral stricture: - to be followed up as outpatient Total Time Total Time Spent Total Time Spent (In Minutes): 21 Total Time Includes: Examination of the Patient, Discharge Planning, Medication Reconciliation and Communication With Other Providers Discharge Plan Discharge Items Patient Disposition: Home - Self-Care Reason For Visit: ABDOMINAL PAIN Discharge Diagnosis: left ureteral stone Activity: Resume your previous activity Non-emergency contact: Primary Care Provider and Urologist Call non-emergency contact if: you have any medication questions, your symptoms worsen and your pain is not controlled Follow-up/Referrals: Christos Manley MD [Physician] - Edi Winters DO [Primary Care Provider] - Diet: Heart Healthy Addtl Attending Provider Instructions: You were admitted for an obstructing left ureteral stone that was managed by Urology with a stent. You should finish 6 doses of Ciprofloxacin, an antibiotic, and the urologist will call you on Sunday02/20/2022 for follow up. Pending Studies at Discharge: No Stand-Alone Forms: My WalkMe, Smoking Cessation Medications and DC Order Prescriptions: New tamsulosin 0.4 mg Capsule 0.4 mg PO QAM Qty: 14 0RF ciprofloxacin HCl 250 mg tablet 250 mg PO BID Qty: 6 0RF oxycodone 5 mg capsule 5 mg PO Q8H PRN (Reason: pain) Qty: 10 0RF Continued lisinopril 20 mg tablet 20 mg PO HS hydrochlorothiazide 25 mg tablet 25 mg PO HS omeprazole magnesium [Prilosec OTC] 20 mg Tablet,Delayed Release (Dr/Ec) 20 mg PO HS ascorbic acid (vitamin C) [Vitamin C] 1,000 mg Tablet 500 mg PO HS selenium 200 mcg Tablet 200 mcg PO HS magnesium 250 mg Tablet 250 mg PO HS cholecalciferol (vitamin D3) [Vitamin D3] 25 mcg (1,000 unit) Tablet 25 mcg PO HS [place]-3 Fish Oil 300-1,000 mg Capsule 1 cap PO DAILY Discontinued diphenhydramine HCl [Benadryl] 25 mg Capsule 25 mg PO HS zinc 10 mg Tablet 10 mg PO DAILY Discharge Orders: Discharge Order (Routine); Ordered 02/18/22 Ordered By: Dustin Rizo Admission Data Admit Date/Time: 02/18/22 00:32 Attending Provider: Dustin Rizo Admit Provider: Dakota Yang Primary Care Provider: Edi Winters Other Providers: Silvestre Haque ; Chidi Richards ; Christos Manley ; Dulce Thapa ; Jose M Gaming ; Sherrill Ward ; Alma Rosa Mon ; Bert Jeffries ; Prasad Zambrano ; Sandra Chao ; Tyler Arevalo ; Isreal Parmar
[2022-02-18] MEDS ORDERED: diphenhydrAMINE 50 MG/ML VIAL IV STA (14:13)
[2022-02-18] MEDS ORDERED: oxyCODONE HCL IR 5 MG TAB (IMMEDIATE RELEASE) PO STA (14:13)
[2022-02-18] MEDS ORDERED: lisinopril 20 MG TAB PO SCH (21:00)
[2022-02-18] MEDS ORDERED: ASCORBIC ACID 500 MG TAB PO SCH (21:00)
[2022-02-18] MEDS ORDERED: hydroCHLOROthiazide 25 MG TAB PO SCH (21:00)
[2022-02-18] MEDS ORDERED: MAGNESIUM OXIDE 400 MG TAB PO SCH (21:00)
[2022-02-18] MEDS ORDERED: PANTOprazole 40 MG TAB PO SCH (21:00)
[2022-02-18] MEDS ORDERED: CHOLECALCIFEROL 1,000 UNITS 25 MCG TAB PO SCH (21:00)
[2022-02-18] MEDS ORDERED: diphenhydrAMINE Capsule 25 MG CAP PO SCH (21:00)
== END 2022-02-18 15:34 | disposition home or self-care (01) | DRG 660 ==
LOC: ED 18:13 → 3N 02-18 00:32

== ENCOUNTER 2022-05-09 14:45 | Observation (INO) ==
[2022-05-09] MEDS ORDERED: HYDROmorphone INJ 0.5 MG/0.5 ML SYR IV STA ×2 (15:22→17:13)
[2022-05-09] MEDS ORDERED: ONDANSETRON INJ 2 MG/ML 2 ML VIAL IV STA (15:22)
--- NOTE | 2022-05-09 15:34 | Emergency Department Note ---
History of Present Illness General Chief complaint: Back Injury/Pain Stated complaint: BACK INJURY Time Seen by Provider: 05/09/22 15:09 History of Present Illness Maximum Pain Intensity: 3 This is a 56-year-old male that presents to the emergency department via private vehicle with complaints of "back injury". The patient notes that earlier today while at work about 1 hour prior to arrival he was bending down and tried to stand up from a bent position. He notes that he then developed back pain and could not stand up. He points to the mid/lower back as a location of discomfort that radiates to the right flank region overlying an abdominal incision where he had an adrenal gland removed and also into his right hip. He denies any known trauma. He notes he has had back pain over the past few weeks but not to this degree. No history of spine surgeries. No infectious symptoms. No fevers or chills. No lower extremity weakness, bowel or bladder incontinence, numbness or tingling in genital region. Current pain 3/10 at rest but significantly worsens with movement. Home Medications Medication Instructions Recorded Confirmed Type hydrochlorothiazide 25 mg tablet 25 mg PO DAILY 08/07/19 05/09/22 History lisinopril 20 mg tablet 20 mg PO HS 08/07/19 05/09/22 History omeprazole magnesium 20 mg 20 mg PO DAILYBB 08/07/19 05/09/22 History tablet,delayed release (Prilosec OTC) cholecalciferol (vitamin D3) 25 25 mcg PO DAILY 12/19/20 05/09/22 History mcg (1,000 unit) tablet (Vitamin D3) selenium 200 mcg tablet 200 mcg PO DAILY 12/19/20 05/09/22 History omega-3s 300 [id number] 1 cap PO DAILY 02/17/22 05/09/22 History [id number] oil 1,000 mg capsule ([place]-3 Fish Oil) ascorbic acid (vitamin C) 500 mg 500 mg PO DAILY 05/09/22 05/09/22 History chewable tablet (Vitamin C) magnesium 200 mg tablet 200 mg PO DAILY 05/09/22 05/09/22 History Allergies Allergy/AdvReac Type Severity Reaction Status Date / Time ciprofloxacin Allergy Mild Hives Verified 02/23/22 10:21 Past Med/Surg History Medical History Adrenal mass hx-sx for removal 11/08/21 History of chronic rhinitis History of COVID-19 12/2020, [facility], hospitalized w/covid pneumonia History of depression History of umbilical hernia Hx of esophageal reflux Hx of renal calculi left-recent admit to [facility], 02/2022 Hyperlipemia hx Hyponatremia hx Pneumonia due to COVID-19 virus 12/2020 Surgical History H/O inguinal hernia repair H/O knee surgery H/O vasectomy History of surgical removal of lesion left eyelid Hx of colonoscopy Hx of cystoscopy for treatment of stricture 02/18/22-w/stent placment Hx of umbilical hernia repair Family History Other Depression Diabetes Hypertension Social History Smoking Status: Former smoker Tobacco Type: Cigarettes Second Hand Exposure: No; Hx Alcohol Use: Yes Alcohol type: beer, wine and hard liquor Alcohol Intake Frequency: Monthly or Less Hx Substance Use: No Preferred Language: Montenegrin Communication Ability: Effective Planner Chief Required: No Beliefs That Will Affect Care: None Current Living Situation: Spouse Current Living Situation Comment: and daughter Other Information That Helps Us Care for You: No Feels Safe at Home: Yes Safety Concerns: Feels Safe At This Time Assistive Devices: Glasses Assistive Devices Comment: reading glasses Review of Systems A total of 10 systems reviewed and were otherwise negative Physical Exam Vital Signs Vital Signs - 24 hr 05/09/22 15:05 05/09/22 17:45 Temperature 36.8 C Temperature Source Temporal Artery Scan Pulse Rate 93 H Pulse Rate [Right Finger] 77 Respiratory Rate 18 20 Respiratory Effort / Characteristics Non-Labored Spontaneous Respiratory Depth Normal Respiratory Pattern Regular Blood Pressure 143/81 H Blood Pressure [Right Arm] 140/88 Blood Pressure Mean 101 Blood Pressure Mean [Right Arm] 105 Pulse Oximetry 95 95 Oxygen Delivery Method Room Air Room Air Sepsis Recent Fever Within 48 Hours No Sepsis New/Unexplained Change in Mental Status No Sepsis Action Taken by Nursing No Action Required VITAL SIGNS - Vital signs and nursing notes were reviewed. Stable and afebrile. GENERAL -56-year-old male appearing his stated age who is in no acute distress. Communicates well with provider and answers questions appropriately. SKIN - Without rashes. No meningeal or petechial rash. HEAD - NC/AT. EYES - PERRL with EOMI bilaterally. Sclera anicteric. EARS - No deformities of external structures noted on gross examination bilaterally. NOSE - Midline and without cyanosis. MOUTH/OROPHARYNX - Without perioral cyanosis. NECK - Neck with FROM. No nuchal rigidity. LUNGS - Chest wall symmetric without accessory muscle use, intercostals retr actions, or central cyanosis. Normal vesicular breath sounds CTA B/L. No wheezes, rales, or rhonchi appreciated. CARDIAC - RRR with S1/S2. No murmur, rubs, or gallops appreciated. ABDOMEN - Abdominal contour normal without pulsations or visible masses. BS normoactive all four quadrants. No tenderness, palpable masses, hepatosplenomegaly, or ascites noted. EXTREMITIES - No clubbing or peripheral cyanosis. +5/5 strength noted in UE/LE bilaterally. NEUROLOGIC - Cranial nerves II through XII grossly intact. MUSCULOSKELETALreproducible tenderness overlying the superior L-spine region. PSYCH - A&Ox3 and cooperates fully with examiner. Pt is very pleasant and interacts well with examiner. Course Administered Medications Sodium Chloride (Nss 1000ml) 1,000 mls @ 75 mls/hr IV .[id number] ONE Stop: 05/10/22 09:05 Last Admin: 05/09/22 20:30 Dose: 75 mls/hr Documented By: FATEMEH Lisinopril (Lisinopril 20 Mg Tab) 20 mg PO HS STEPHANIE Stop: 06/08/22 21:53 Last Admin: 05/09/22 22:24 Dose: Not Given Documented By: MICKEY Oxycodone HCl (Oxycodone Hcl Ir 5 Mg Tab (Immediate Release)) 5 - 10 mg PO QID PRN PRN Reason: Pain Stop: 05/23/22 19:43 Last Admin: 05/09/22 23:52 Dose: 10 mg Documented By: CORNELIUS Discontinued Medications Hydromorphone HCl (Hydromorphone Inj 0.5 Mg/0.5 Ml Syr) 0.5 mg IV NOW STA Stop: 05/09/22 15:23 Last Admin: 05/09/22 16:03 Dose: 0.5 mg Documented By: ADINA Hydromorphone HCl (Hydromorphone Inj 0.5 Mg/0.5 Ml Syr) 0.5 mg IV NOW STA Stop: 05/09/22 17:14 Last Admin: 05/09/22 17:30 Dose: 0.5 mg Documented By: ADINA Ioversol (Optiray 350 100ml) 88 ml IV ONCE ONE Stop: 05/09/22 17:45 Last Admin: 05/09/22 17:44 Dose: 88 ml Documented By: MADI Ketorolac Tromethamine (Ketorolac Tromethamine 15 Mg/Ml Vial) 15 mg IV NOW STA Stop: 05/09/22 18:41 Last Admin: 05/09/22 18:59 Dose: 15 mg Documented By: REGINE Lidocaine (Lidocaine 5% 1 Patch) 1 patch TD NOW STA Stop: 05/09/22 18:41 Last Admin: 05/09/22 18:59 Dose: 1 patch Documented By: REGINE Ondansetron HCl (Ondansetron Inj 2 Mg/Ml 2 Ml Vial) 4 mg IV NOW STA Stop: 05/09/22 15:23 Last Admin: 05/09/22 16:03 Dose: 4 mg Documented By: ADINA Medical Decision Making Laboratory Data Result diagrams: 05/09/22 16:40 05/09/22 16:39 Lab Results 05/09/22 05/09/22 05/09/22 Range/Units 16:39 16:40 16:40 WBC 8.11 (4.8-10.8) K/ul RBC 4.61 L (4.63-6.08) M/uL Hgb 15.0 (14.0-18.0) g/dl Hct 41.1 (40.1-51.0) % MCV 89.2 (80.0-100.0) fL MCH 32.5 (25.0-34.0) pg MCHC 36.5 H (32.0-36.0) g/dL RDW Std Deviation 39.3 (36.4-46.3) fL RDW Coeff of Angel 12.1 (11.5-14.5) % Plt Count 260 (130-400) K/uL MPV 8.7 L (9.4-12.4) fL Immature Gran % (Auto) 0.6 % Neut % (Auto) 55.8 % Lymph % (Auto) 28.7 % [place] % (Auto) 11.3 % Eos % (Auto) 2.6 % Baso % (Auto) 1.0 % Neut # (Auto) 4.52 (1.4-6.5) K/uL Lymph # (Auto) 2.33 (1.2-3.4) K/uL [place] # (Auto) 0.92 H (0.24-0.82) K/uL Eos # (Auto) 0.21 (0-0.50) K/uL Baso # (Auto) 0.08 (0-0.2) K/uL Immature Gran # (Auto) 0.05 H (0.00-0.02) K/uL Sodium 135 L (136-145) mmol/L Potassium 4.0 (3.5-5.1) mmol/L Chloride 101 (98-107) mmol/L Carbon Dioxide 26 (21-32) mmol/L Anion Gap 8 (3-11) BUN 20 (6-23) mg/dl Creatinine 0.82 (0.6-1.4) mg/dl Est Cr Clr Drug Dosing 126.1 ml/min Est GFR ( Amer) 115.4 ml/min Est GFR (Non-Af Amer) 99.6 ml/min BUN/Creatinine Ratio 24.4 H (10-20) Glucose 109 H (70-99(Fasting)) mg/dl Estimat Average Glucose 117 mg/dl Hemoglobin A1c 5.7 H (4.5-5.6) % Calcium 9.5 (8.5-10.1) mg/dl Total Bilirubin 0.8 (0.2-1.0) mg/dl AST 63 H (13-39) U/L ALT 87 H (7-52) U/L Alkaline Phosphatase 74 (34-104) U/L Total Protein 7.3 (6.0-8.3) gm/dl Albumin 4.3 (3.4-5.0) gm/dl Globulin 3.0 (2.5-4.0) gm/dl Albumin/Globulin Ratio 1.4 (0.9-2) SARS-CoV-2, RNA, NAAT (NEGATIVE) 05/09/22 Range/Units 18:55 WBC (4.8-10.8) K/ul RBC (4.63-6.08) M/uL Hgb (14.0-18.0) g/dl Hct (40.1-51.0) % MCV (80.0-100.0) fL MCH (25.0-34.0) pg MCHC (32.0-36.0) g/dL RDW Std Deviation (36.4-46.3) fL RDW Coeff of Angel (11.5-14.5) % Plt Count (130-400) K/uL MPV (9.4-12.4) fL Immature Gran % (Auto) % Neut % (Auto) % Lymph % (Auto) % [place] % (Auto) % Eos % (Auto) % Baso % (Auto) % Neut # (Auto) (1.4-6.5) K/uL Lymph # (Auto) (1.2-3.4) K/uL [place] # (Auto) (0.24-0.82) K/uL Eos # (Auto) (0-0.50) K/uL Baso # (Auto) (0-0.2) K/uL Immature Gran # (Auto) (0.00-0.02) K/uL Sodium (136-145) mmol/L Potassium (3.5-5.1) mmol/L Chloride (98-107) mmol/L Carbon Dioxide (21-32) mmol/L Anion Gap (3-11) BUN (6-23) mg/dl Creatinine (0.6-1.4) mg/dl Est Cr Clr Drug Dosing ml/min Est GFR ( Amer) ml/min Est GFR (Non-Af Amer) ml/min BUN/Creatinine Ratio (10-20) Glucose (70-99(Fasting)) mg/dl Estimat Average Glucose mg/dl Hemoglobin A1c (4.5-5.6) % Calcium (8.5-10.1) mg/dl Total Bilirubin (0.2-1.0) mg/dl AST (13-39) U/L ALT (7-52) U/L Alkaline Phosphatase (34-104) U/L Total Protein (6.0-8.3) gm/dl Albumin (3.4-5.0) gm/dl Globulin (2.5-4.0) gm/dl Albumin/Globulin Ratio (0.9-2) SARS-CoV-2, RNA, NAAT NEGATIVE (NEGATIVE) Imaging Data Radiologist's Impression: Abdomen/Pelvis CT 05/09/22 15:[address] WITH IV CONTRAST HISTORY: Acute generalized abdominal pain with right-sided flank pain back pain, R flank pain/abd pain into R hip TECHNIQUE: Multiaxial CT images of the abdomen and pelvis were performed following the IV administration of 88 cc of Optiray, A dose lowering technique was utilized adhering to the principles of ALARA. COMPARISON STUDY: 02/17/2022 FINDINGS: Mild cardiomegaly. Mild subsegmental bibasilar atelectasis. 3 mm subpleural solid nodule within the right middle lobe is unchanged and likely benign. No pneumatosis or pneumoperitoneum. The spleen is mildly enlarged. The pancreas and left adrenal gland are unremarkable. Postoperative changes suggestive of interval right adrenal gland resection. Unremarkable gallbladder. Hepatic steatosis. Mild nonspecific bilateral perinephric stranding. No renal calculi or hydronephrosis identified. Urinary bladder wall thickening with partial distention. Prostamegaly. Small fat filled right inguinal hernia. Aorta and IVC are unremarkable. There are a few prominent subcentimeter and borderline enlarged periportal and precaval lymph nodes which are unchanged and favored to be benign. Small hiatal hernia. No bowel wall thickening. There are a few fluid-filled loops of small bowel which are slightly dilated within the left upper quadrant abdomen measuring up to 3.6 cm. Colonic diverticulosis. No CT evidence of acute appendicitis. Stranding within the periumbilical subcutaneous tissues is likely on a postsurgical basis. Small supraumbilical fat filled hernia, diastases 1.3 cm. There is a postoperative defect again noted within the right lateral aspect of the abdominal wall musculature involving the transverse abdominis and internal oblique muscles. Mesenteric fat and ascending colon extends into the hernia defect which measures up to approximately 6.5 cm. No acute fracture. Moderate L5-S1 intervertebral disc space narrowing with posterior disc osteophyte complex. IMPRESSION: 1. No acute intra-abdominal or intrapelvic abnormality. 2. There are a few mildly dilated loops of small bowel within the left upper quadrant abdomen which are favored to be physiologic. No bowel wall thickening. 3. Normal appendix. 4. Hernia involving the right lateral abdominal wall musculature is again noted containing mesenteric fat and nonobstructed colon. 5. Additional findings as above. ACT 112: Negative or not required by law. The above report was generated using voice recognition software. It may contain grammatical, syntax or spelling errors. Electronically signed by: Soham Forte M.D. 05/09/2022 5:[address] 05/09/22 15:22 CT lumbar spine w con HISTORY: back pain, R flank pain/abd pain into R hip TECHNIQUE: Multiaxial CT images of the lumbar spine were performed following the intravenous administration of 80 cc of Optiray 350 reformatted in the sagittal and coronal plane. COMPARISON STUDY: None. FINDINGS: No fracture or subluxation within the lumbar spine. Mild disc space narrowing at L5-S1. Remaining disc spaces are preserved. There are mild facet degenerative changes within the lower lumbar spine. The visualized sacrum is intact. Paravertebral soft tissues are unremarkable. No significant central canal narrowing by CT technique. There is moderate right neural foraminal narrowing at L5-S1 due to a broad-based posterior disc space complex and the facet hypertrophy. IMPRESSION: No fracture or subluxation within the lumbar spine. ACT 112: Negative or not required by law. Electronically signed by: Donnie Pineda M.D. 05/09/2022 5:50 PM [facility] Narrative Patient was seen and evaluated as above in room D01. Review was performed of nursing notes and vital signs. After obtaining a thorough history and physical examination the above work up was performed. Patient presents to us today with back discomfort that radiates to the right flank and right hip region. Patient notes the pain was two-point he was unable to stand up earlier today. Patient does appear to be in pain on examination. He is neurovascularly intact. No evidence of cauda equina syndrome. No infectious symptoms. Options of care were discussed with the patient. IV access was established. Labs were drawn. Patient was medicated with IV analgesics as well as antiemetics. He was reevaluated and the pain returned. His second dose of analgesics were ordered. His labs reveal no leukocytosis or concerning anemia. No emergent metabolic disturbance. Patient does have transaminitis noted but this appears to not be new, with values similar to previous. CT imaging was obtained of the abdomen and pelvis noting the patient's discomfort radiating into his right flank/abdomen with a palpable hernia in the abdomen. I did review his previous CT but do feel that with his new symptoms at this time believe that repeat imaging is warranted. I also obtained L-spine imaging from the CT abdomen/pelvis. Results of this as above. This was essentially negative for any fracture or subluxation however there is comment of moderate right neuroforaminal narrowing at L5-S1 due to a broad-based posterior disc space complex and the facet hypertrophy. I do not believe that he requires emergent MRI at the present time. I went to reevaluate the patient and have him try and ambulate. He could not even stand noting his severe discomfort when he attempts to move. He grabs his back when he tries to twist and move his legs off of the bed. Patient was then repositioned back in the bed. At this time I do believe that further evaluation and management is warranted in the inpatient setting noting his ongoing back discomfort and inability to move without significant pain. I also ordered a lidocaine patch and Toradol for pain. Patient amenable to plan of care with inpatient management. I discussed this with the ospitalist. Please refer to further documentation regarding his stay. GCS: 15 In the evaluation and treatment of this patient the following differential diagnoses were entertained: Fracture, dislocation, subluxation, contusion, sprain, strain, AAA, cauda equina syndrome, acute abdomen, ischemic bowel, hernia, infection, herniated disc, among others. Impression & Plan Intractable low back pain, Postoperative abdominal hernia, Right flank pain, Elevated LFTs Discharge Plan Visit Data Chief Complaint: Back Injury/Pain Stated Complaint: BACK INJURY ED Provider: Antonio Alvarenga ED Midlevel Provider: Edgar Mitchell Discharge Problem: Intractable low back pain, Postoperative abdominal hernia, Right flank pain, Elevated LFTs Patient Disposition: Admitted As Inpatient Condition: Good Discharge Instructions Interventions: ED Discharge Assessment Last Done: 05/09/22 21:19
[2022-05-09 16:51] LABS: Basophils # (auto) 0.08 K/uL (0-0.2); Eosinophils # (auto) 0.21 K/uL (0-0.50); Eosinophils % (auto) 2.6 %; Hematocrit (blood only) 41.1 % (40.1-51.0); Immature Granulocytes # (auto) 0.05 K/uL (0.00-0.02); Immature Granulocytes % (auto) 0.6 %; Lymphocytes # (auto) 2.33 K/uL (1.2-3.4); Lymphocytes % (auto) 28.7 %; Mean Corpuscular Hemoglobin 32.5 pg (25.0-34.0); Mean Corpuscular Hgb Conc 36.5 g/dL (32.0-36.0); Mean Corpuscular Volume 89.2 fL (80.0-100.0); Mean Platelet Volume 8.7 fL (9.4-12.4); Monocytes # (auto) 0.92 K/uL (0.24-0.82); Monocytes % (auto) 11.3 %; Neutrophils # (auto) 4.52 K/uL (1.4-6.5); Neutrophils % (auto) 55.8 %; Platelet Count 260 K/uL (130-400); RDW Coefficient of Variation 12.1 % (11.5-14.5); RDW Standard Deviation 39.3 fL (36.4-46.3); Red Blood Count 4.61 M/uL (4.63-6.08); White Blood Count 8.11 K/ul (4.8-10.8)
[2022-05-09 17:21] LABS: Albumin Globulin Ratio 1.4 (0.9-2); Albumin Level 4.3 gm/dl (3.4-5.0); BUN Creatinine Ratio 24.4 (10-20); Bilirubin,Total 0.8 mg/dl (0.2-1.0); Calcium 9.5 mg/dl (8.5-10.1); Creatinine Clr Calc Pharmacy 126.1 ml/min; Est GFR (African American) 115.4 ml/min; Est GFR (Non-African American) 99.6 ml/min; Total Protein 7.3 gm/dl (6.0-8.3)
[2022-05-09] MEDS ORDERED: OPTIRAY 350 100ml IV ONE (17:44)
--- NOTE | 2022-05-09 17:52 | CT Scan Report ---
CT lumbar spine w con HISTORY: back pain, R flank pain/abd pain into R hip TECHNIQUE: Multiaxial CT images of the lumbar spine were performed following the intravenous administ ration of 80 cc of Optiray 350 reformatted in the sagittal and coronal plane. COMPARISON STUDY: None. FINDINGS: No fracture or subluxation within the lumbar spine. Mild disc space narrowing at L5-S1. Rem aining disc spaces are preserved. There are mild facet degenerative changes within the lower lumbar s pine. The visualized sacrum is intact. Paravertebral soft tissues are unremarkable. No significant ce ntral canal narrowing by CT technique. There is moderate right neural foraminal narrowing at L5-S1 du e to a broad-based posterior disc space complex and the facet hypertrophy. IMPRESSION: No fracture or subluxation within the lumbar spine. ACT 112: Negative or not required by law. Electronically signed by: Donnie Pineda M.D. 05/09/2022 5:50 PM
--- NOTE | 2022-05-09 18:01 | CT Scan Report ---
ABDOMEN AND PELVIS CT WITH IV CONTRAST HISTORY: Acute generalized abdominal pain with right-sided flank pain back pain, R flank pain/abd pa in into R hip TECHNIQUE: Multiaxial CT images of the abdomen and pelvis were performed following the IV administrat ion of 88 cc of Optiray, A dose lowering technique was utilized adhering to the principles of ALARA. COMPARISON STUDY: 02/17/2022 FINDINGS: Mild cardiomegaly. Mild subsegmental bibasilar atelectasis. 3 mm subpleural solid nodule wi thin the right middle lobe is unchanged and likely benign. No pneumatosis or pneumoperitoneum. The sp magnolia is mildly enlarged. The pancreas and left adrenal gland are unremarkable. Postoperative changes suggestive of interval right adrenal gland resection. Unremarkable gallbladder. Hepatic steatosis. Mild nonspecific bilateral perinephric stranding. No renal calculi or hydronephrosis identified. Urin lesley bladder wall thickening with partial distention. Prostamegaly. Small fat filled right inguinal he rnia. Aorta and IVC are unremarkable. There are a few prominent subcentimeter and borderline enlarged periportal and precaval lymph nodes which are unchanged and favored to be benign. Small hiatal hernia. No bowel wall thickening. There are a few fluid-filled loops of small bowel whic h are slightly dilated within the left upper quadrant abdomen measuring up to 3.6 cm. Colonic diverti culosis. No CT evidence of acute appendicitis. Stranding within the periumbilical subcutaneous tissue s is likely on a postsurgical basis. Small supraumbilical fat filled hernia, diastases 1.3 cm. There is a postoperative defect again noted within the right lateral aspect of the abdominal wall musculatu re involving the transverse abdominis and internal oblique muscles. Mesenteric fat and ascending colo n extends into the hernia defect which measures up to approximately 6.5 cm. No acute fracture. Modera te L5-S1 intervertebral disc space narrowing with posterior disc osteophyte complex. IMPRESSION: 1. No acute intra-abdominal or intrapelvic abnormality. 2. There are a few mildly dilated loops of small bowel within the left upper quadrant abdomen which a re favored to be physiologic. No bowel wall thickening. 3. Normal appendix. 4. Hernia involving the right lateral abdominal wall musculature is again noted containing mesenteric fat and nonobstructed colon. 5. Additional findings as above. ACT 112: Negative or not required by law. The above report was generated using voice recognition software. It may contain grammatical, syntax o r spelling errors. Electronically signed by: Soham Forte M.D. 05/09/2022 5:59 PM
[2022-05-09] MEDS ORDERED: KETOROLAC TROMETHAMINE 15 MG/ML VIAL IV STA (18:40)
[2022-05-09] MEDS ORDERED: LIDOCAINE 5% 1 PATCH TD STA (18:40)
[2022-05-09] MEDS ORDERED: KETOROLAC TROMETHAMINE 15 MG/ML VIAL IV PRN (19:44)
[2022-05-09] MEDS ORDERED: oxyCODONE HCL IR 5 MG TAB (IMMEDIATE RELEASE) PO PRN (19:44)
[2022-05-09] MEDS ORDERED: SODIUM CHLORIDE 0.9% 1000ML 1,000 ML IV ONE (19:46)
[2022-05-09] MEDS ORDERED: IBUPROFEN 200 MG TAB PO PRN (20:31)
[2022-05-09] MEDS ORDERED: ACETAMINOPHEN 500 MG TAB PO PRN (20:31)
--- NOTE | 2022-05-09 20:34 | History & Physical Report ---
Date of Service May 09, 2022 Assessment & Plan (1) Back pain: Plan: Low back pain Possible muscle strain Patient nontoxic. Unremarkable imaging so far. hypertension, stable hyperlipidemia, not on medications hx GERD stable hx NAFLD right adrenal myolipoma status post surgery Hyperglycemia rule out DM past tobacco abuse OBS GMF Analgesia PT eval Orthopedics consult if without improvement in a.m. Check hemoglobin A1c DVT prophylaxis per Lovenox subcu Full code Text document was generated using [employer] voice recognition software. It may contain grammatical or spelling errors. Kindly contact undersigned for clarification of any documentation item in question. History of Present Illness Chief Complaint: Back pain Primary Care Provider: Edi Winters DO History obtained from patient, family, and records. Medical history significant for hypertension, hyperlipidemia, GERD, NAFLD, right adrenal myolipoma status post surgery, urolithiasis, mood disorder, past tobacco abuse. Last confinement February 2022 for obstructing left ureteral stone with hydronephrosis status post stent insertion. 1 week history of right back pain with some radiation to the hip. No recollection of recent trauma or unusual exertion. No leg radiation, no incontinence symptoms. No fever, no chills. No chest pain, no shortness of breath. Worsening at work today on the field as a [employer] employee. Intractable discomfort at the ER. 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 Allergies Allergy/AdvReac Type Severity Reaction Status Date / Time ciprofloxacin Allergy Mild Hives Verified 02/23/22 10:21 Home Medications Medication Instructions Recorded Confirmed Type hydrochlorothiazide 25 mg tablet 25 mg PO DAILY 08/07/19 05/09/22 History lisinopril 20 mg tablet 20 mg PO HS 08/07/19 05/09/22 History omeprazole magnesium 20 mg 20 mg PO DAILYBB 08/07/19 05/09/22 History tablet,delayed release (Prilosec OTC) cholecalciferol (vitamin D3) 25 25 mcg PO DAILY 12/19/20 05/09/22 History mcg (1,000 unit) tablet (Vitamin D3) selenium 200 mcg tablet 200 mcg PO DAILY 12/19/20 05/09/22 History omega-3s 300 yb-hym-dnp-other 1 cap PO DAILY 02/17/22 05/09/22 History [id number] oil 1,000 mg capsule ([place]-3 Fish Oil) ascorbic acid (vitamin C) 500 mg 500 mg PO DAILY 05/09/22 05/09/22 History chewable tablet (Vitamin C) magnesium 200 mg tablet 200 mg PO DAILY 05/09/22 05/09/22 History Past Med/Surg History Medical History Adrenal mass hx-sx for removal 11/08/21 History of chronic rhinitis History of COVID-19 12/2020, [facility], hospitalized w/covid pneumonia History of depression History of umbilical hernia Hx of esophageal reflux Hx of renal calculi left-recent admit to [facility], 02/2022 Hyperlipemia hx Hyponatremia hx Pneumonia due to COVID-19 virus 12/2020 Surgical History H/O inguinal hernia repair H/O knee surgery H/O vasectomy History of surgical removal of lesion left eyelid Hx of colonoscopy Hx of cystoscopy for treatment of stricture 02/18/22-w/stent placment Hx of umbilical hernia repair Family History Other Depression Diabetes Hypertension Social History Smoking Status: Former smoker Tobacco Type: Cigarettes Second Hand Exposure: No; Hx Alcohol Use: Yes Alcohol type: beer, wine and hard liquor Alcohol Intake Frequency: Monthly or Less Hx Substance Use: No Preferred Language: Urdu Communication Ability: Effective 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: No Beliefs That Will Affect Care: None Current Living Situation: Spouse Current Living Situation Comment: and daughter Other Information That Helps Us Care for You: No Feels Safe at Home: Yes Safety Concerns: Feels Safe At This Time Assistive Devices: Glasses Assistive Devices Comment: reading glasses Review of Systems Review of Systems: As per HPI, all other systems reviewed and negative Physical Exam Physical Exam: GENERAL: Comfortable, pleasant, morbidly obese, no respiratory distress SKIN: Normal color, warm HEENT: Alopecia, [place] palpebral conjunctivae, no ptosis, moist buccal mucosa NECK : Supple, short neck, no tenderness CHEST : CTA, no tenderness HEART : RRR, no obvious murmurs ABDOMEN: Some distention, nontender BACK : Minimal right back tenderness, negative straight leg raise test EXTREMITIES : No LE swelling/tenderness, no other conspicuous deformities noted NEUROLOGIC : Coherent, no facial asymmetry, no other gross focality Results & Data Results & Data ([facility]) Vital Signs (Past 12 Hours) Vital Signs Temp Pulse Pulse Resp BP BP Pulse Ox 05/09/22 17:45 77 20 140/88 95 05/09/22 15:05 36.8 C 93 H 18 143/81 H 95 O2 Del Method 05/09/22 17:45 Room Air 05/09/22 15:05 Room Air Laboratory Results Laboratory Results WBC 8.11 K/ul (4.8-10.8) 05/09/22 16:40 RBC 4.61 M/uL (4.63-6.08) L 05/09/22 16:40 Hgb 15.0 g/dl (14.0-18.0) 05/09/22 16:40 Hct 41.1 % (40.1-51.0) 05/09/22 16:40 MCV 89.2 fL (80.0-100.0) 05/09/22 16:40 MCH 32.5 pg (25.0-34.0) 05/09/22 16:40 MCHC 36.5 g/dL (32.0-36.0) H 05/09/22 16:40 RDW Std Deviation 39.3 fL (36.4-46.3) 05/09/22 16:40 RDW Coeff of Angel 12.1 % (11.5-14.5) 05/09/22 16:40 Plt Count 260 K/uL (130-400) 05/09/22 16:40 MPV 8.7 fL (9.4-12.4) L 05/09/22 16:40 Immature Gran % (Auto) 0.6 % 05/09/22 16:40 Neut % (Auto) 55.8 % 05/09/22 16:40 Lymph % (Auto) 28.7 % 05/09/22 16:40 [place] % (Auto) 11.3 % 05/09/22 16:40 Eos % (Auto) 2.6 % 05/09/22 16:40 Baso % (Auto) 1.0 % 05/09/22 16:40 Neut # (Auto) 4.52 K/uL (1.4-6.5) 05/09/22 16:40 Lymph # (Auto) 2.33 K/uL (1.2-3.4) 05/09/22 16:40 [place] # (Auto) 0.92 K/uL (0.24-0.82) H 05/09/22 16:40 Eos # (Auto) 0.21 K/uL (0-0.50) 05/09/22 16:40 Baso # (Auto) 0.08 K/uL (0-0.2) 05/09/22 16:40 Immature Gran # (Auto) 0.05 K/uL (0.00-0.02) H 05/09/22 16:40 Sodium 135 mmol/L (136-145) L 05/09/22 16:39 Potassium 4.0 mmol/L (3.5-5.1) 05/09/22 16:39 Chloride 101 mmol/L (98-107) 05/09/22 16:39 Carbon Dioxide 26 mmol/L (21-32) 05/09/22 16:39 Anion Gap 8 (3-11) 05/09/22 16:39 BUN 20 mg/dl (6-23) 05/09/22 16:39 Creatinine 0.82 mg/dl (0.6-1.4) 05/09/22 16:39 Est Cr Clr Drug Dosing 126.1 ml/min 05/09/22 16:39 Est GFR ( Amer) 115.4 ml/min 05/09/22 16:39 Est GFR (Non-Af Amer) 99.6 ml/min 05/09/22 16:39 BUN/Creatinine Ratio 24.4 (10-20) H 05/09/22 16:39 Glucose 109 mg/dl (70-99(Fasting)) H 05/09/22 16:39 Calcium 9.5 mg/dl (8.5-10.1) 05/09/22 16:39 Total Bilirubin 0.8 mg/dl (0.2-1.0) 05/09/22 16:39 AST 63 U/L (13-39) H 05/09/22 16:39 ALT 87 U/L (7-52) H 05/09/22 16:39 Alkaline Phosphatase 74 U/L (34-104) 05/09/22 16:39 Total Protein 7.3 gm/dl (6.0-8.3) 05/09/22 16:39 Albumin 4.3 gm/dl (3.4-5.0) 05/09/22 16:39 Globulin 3.0 gm/dl (2.5-4.0) 05/09/22 16:39 Albumin/Globulin Ratio 1.4 (0.9-2) 05/09/22 16:39 SARS-CoV-2, RNA, NAAT NEGATIVE (NEGATIVE) 05/09/22 18:55 Impressions Abdomen/Pelvis CT 05/09/22 15:[address] WITH IV CONTRAST HISTORY: Acute generalized abdominal pain with right-sided flank pain back pain, R flank pain/abd pain into R hip TECHNIQUE: Multiaxial CT images of the abdomen and pelvis were performed following the IV administration of 88 cc of Optiray, A dose lowering technique was utilized adhering to the principles of ALARA. COMPARISON STUDY: 02/17/2022 FINDINGS: Mild cardiomegaly. Mild subsegmental bibasilar atelectasis. 3 mm subpleural solid nodule within the right middle lobe is unchanged and likely benign. No pneumatosis or pneumoperitoneum. The spleen is mildly enlarged. The pancreas and left adrenal gland are unremarkable. Postoperative changes suggestive of interval right adrenal gland resection. Unremarkable gallbladder. Hepatic steatosis. Mild nonspecific bilateral perinephric stranding. No renal calculi or hydronephrosis identified. Urinary bladder wall thickening with partial distention. Prostamegaly. Small fat filled right inguinal hernia. Aorta and IVC are unremarkable. There are a few prominent subcentimeter and borderline enlarged periportal and precaval lymph nodes which are unchanged and favored to be benign. Small hiatal hernia. No bowel wall thickening. There are a few fluid-filled loops of small bowel which are slightly dilated within the left upper quadrant abdomen measuring up to 3.6 cm. Colonic diverticulosis. No CT evidence of acute appendicitis. Stranding within the periumbilical subcutaneous tissues is likely on a postsurgical basis. Small supraumbilical fat filled hernia, diastases 1.3 cm. There is a postoperative defect again noted within the right lateral aspect of the abdominal wall musculature involving the transverse abdominis and internal oblique muscles. Mesenteric fat and ascending colon extends into the hernia defect which measures up to approximately 6.5 cm. No acute fracture. M oderate L5-S1 intervertebral disc space narrowing with posterior disc osteophyte complex. IMPRESSION: 1. No acute intra-abdominal or intrapelvic abnormality. 2. There are a few mildly dilated loops of small bowel within the left upper quadrant abdomen which are favored to be physiologic. No bowel wall thickening. 3. Normal appendix. 4. Hernia involving the right lateral abdominal wall musculature is again noted containing mesenteric fat and nonobstructed colon. 5. Additional findings as above. ACT 112: Negative or not required by law. The above report was generated using voice recognition software. It may contain grammatical, syntax or spelling errors. Electronically signed by: Soham Forte M.D. 05/09/2022 5:[address] 05/09/22 15:22 CT lumbar spine w con HISTORY: back pain, R flank pain/abd pain into R hip TECHNIQUE: Multiaxial CT images of the lumbar spine were performed following the intravenous administration of 80 cc of Optiray 350 reformatted in the sagittal and coronal plane. COMPARISON STUDY: None. FINDINGS: No fracture or subluxation within the lumbar spine. Mild disc space narrowing at L5-S1. Remaining disc spaces are preserved. There are mild facet degenerative changes within the lower lumbar spine. The visualized sacrum is intact. Paravertebral soft tissues are unremarkable. No significant central canal narrowing by CT technique. There is moderate right neural foraminal narrowing at L5-S1 due to a broad-based posterior disc space complex and the facet hypertrophy. IMPRESSION: No fracture or subluxation within the lumbar spine. ACT 112: Negative or not required by law. Electronically signed by: Donnie Pineda M.D. 05/09/2022 5:50 PM
[2022-05-09 20:43] LABS: Estimated Average Glucose 117 mg/dl; Hemoglobin A1C 5.7 % (4.5-5.6)
[2022-05-09] MEDS ORDERED: LORazepam 0.5 MG TAB PO PRN (21:54)
[2022-05-09] MEDS ORDERED: PROMETHAZINE HCL 12.5 MG in SODIUM CHLORIDE 0.9% 50 ML IV PRN (21:54)
[2022-05-09] MEDS ORDERED: lisinopril 20 MG TAB PO SCH (21:54)
[2022-05-10 04:27] LABS: Appearance Urine Clear (Clear); Bilirubin Urine Negative (Negative); Blood Urine Negative (Negative); Color Urine Yellow; Glucose Urine UA Negative (Negative); Ketones Urine Negative (Negative); Leukocyte Esterase Urine Negative (Negative); Nitrite Urine Negative (Negative); Protein Urine Negative (Negative); Specific Gravity Urine > 1.045 (1.000-1.030); Urobilinogen Urine Negative (Negative); pH Urine 5.5 (4.5-7.5)
[2022-05-10] MEDS ORDERED: PANTOprazole 40 MG TAB PO SCH (06:30)
[2022-05-10] MEDS ORDERED: ENOXAPARIN INJ 40 MG/0.4 ML SYR SQ SCH (09:00)
[2022-05-10 09:41] LABS: Basophils # (auto) 0.07 K/uL (0-0.2); Basophils % (auto) 1.1 %; Eosinophils # (auto) 0.21 K/uL (0-0.50); Eosinophils % (auto) 3.2 %; Hematocrit (blood only) 40.2 % (40.1-51.0); Hemoglobin 14.5 g/dl (14.0-18.0); Immature Granulocytes # (auto) 0.04 K/uL (0.00-0.02); Immature Granulocytes % (auto) 0.6 %; Lymphocytes % (auto) 30.9 %; Mean Corpuscular Hemoglobin 32.8 pg (25.0-34.0); Mean Corpuscular Hgb Conc 36.1 g/dL (32.0-36.0); Mean Platelet Volume 9.1 fL (9.4-12.4); Monocytes # (auto) 0.66 K/uL (0.24-0.82); Monocytes % (auto) 10.2 %; Neutrophils # (auto) 3.49 K/uL (1.4-6.5); Platelet Count 224 K/uL (130-400); RDW Coefficient of Variation 12.1 % (11.5-14.5); RDW Standard Deviation 40.1 fL (36.4-46.3); Red Blood Count 4.42 M/uL (4.63-6.08); White Blood Count 6.47 K/ul (4.8-10.8)
[2022-05-10 10:13] LABS: BUN Creatinine Ratio 20.2 (10-20); Calcium 9.1 mg/dl (8.5-10.1); Creatinine Clr Calc Pharmacy 116.2 ml/min; Est GFR (African American) 111.6 ml/min; Est GFR (Non-African American) 96.3 ml/min; Potassium 4.1 mmol/L (3.5-5.1)
--- NOTE | 2022-05-10 14:41 | Hospitalist Progress Note ---
Date of Service May 10, 2022 Assessment & Plan (1) Back pain: Plan: Low back pain without any evidence of radiculopathy No bladder and or bowel problem and no problem with ambulation Possible muscle strain Patient nontoxic. CT scan of the lumbar spine remains unremarkable CT scan of the abdomen and pelvis did not show any significant findings Remains free of any pain this morning Has had physical therapy and did very well and recommendation was to get outpati ent physical therapy as well Will be discharged home this afternoon Hypertension, stable Blood pressure remains stable at 130/73 Hyperlipidemia, not on medications hx GERD stable hx NAFLD Right adrenal myolipoma status post surgery CT of the abdomen and pelvis remained unremarkable Hyperglycemia rule out DM Check hemoglobin A1c -5.7 Past tobacco abuse DVT prophylaxis per Lovenox subcu Full code Will be discharged home this afternoon Admission and Anticipated Discharge Date Admission Date: May 10, 2022 Subjective 05/10/2022 The patient was seen and examined in medical floor He was admitted with acute back pain without radiation and remains free of any pain since this morning He denies any radiation of pain, any numbness or tingling in the extremities and he has had physical therapy with recommendation to go home with physical therapy Review of Systems Review of Systems: All systems reviewed and are unremarkable except as noted below Physical Exam Physical Exam: Lying in bed comfortably Constitutional: well developed, well nourished and + obese; not ill appearing Eyes: PERRL, conjunctivae normal, anicteric sclerae ENMT: external ear and nose normal, oropharynx normal Neck: trachea midline, no thyromegaly Respiratory: no respiratory distress Auscultation: lungs clear to auscultation bilaterally Cardiovascular: Rate/Rhythm: regular rate and regular rhythm; not tachycardic Heart Sounds: normal S1 and normal S2; no murmur Extremities: no edema Gastrointestinal (Abdomen): Inspection/Auscultation: normal bowel sounds; abdomen not distended Percussion/Palpation: abdomen soft; abdomen nontender Musculoskeletal: No acute arthritis involving any joint. No signs and or symptoms of radiculopathy Neurologic: Alert, awake and oriented x3. No focal sensory or no motor defi cit appreciated Psychiatric: A+Ox3, euthymic affect Lymphatic: no cervical or axillary lymphadenopathy Results & Data Results & Data ([facility]) Vital Signs (Past 12 Hours) Vital Signs Temp Pulse Resp BP Pulse Ox O2 Del Method 05/10/22 14:26 36.5 C 66 16 130/73 94 Room Air 05/10/22 07:09 36.4 C L 60 16 110/70 95 Room Air Laboratory Results Short CBC 05/09/22 05/10/22 Range/Units 16:40 08:53 WBC 8.11 6.47 (4.8-10.8) K/ul Hgb 15.0 14.5 (14.0-18.0) g/dl Hct 41.1 40.2 (40.1-51.0) % Plt Count 260 224 (130-400) K/uL BMP 05/09/22 05/10/22 16:39 08:53 Sodium 135 L 135 L Potassium 4.0 4.1 Chloride 101 102 Carbon Dioxide 26 27 BUN 20 18 Creatinine 0.82 0.89 Glucose 109 H 102 H Calcium 9.5 9.1 Liver Function 05/09/22 Range/Units 16:39 Total Bilirubin 0.8 (0.2-1.0) mg/dl AST 63 H (13-39) U/L ALT 87 H (7-52) U/L Alkaline Phosphatase 74 (34-104) U/L Albumin 4.3 (3.4-5.0) gm/dl Urine 05/10/22 Range/Units 04:15 Urine Color Yellow Urine Appearance Clear (Clear) Urine pH 5.5 (4.5-7.5) Ur Specific [place] > 1.045 H (1.000-1.030) Urine Protein Negative (Negative) Urine Glucose (UA) Negative (Negative) Medications Administered Current Inpatient Medications Acetaminophen (Acetaminophen 500 Mg Tab) 500 mg PO Q6H PRN PRN Reason: pain/fever Stop: 06/08/22 20:30 Enoxaparin Sodium (Enoxaparin Inj 40 Mg/0.4 Ml Syr) 40 mg SQ QAM [facility] Stop: 06/09/22 08:59 Last Admin: 05/10/22 08:12 Dose: Not Given Promethazine HCl 12.5 mg/ (Sodium Chloride) 50.5 mls @ 202 mls/hr IV Q6H PRN PRN Reason: Nausea And Vomiting Stop: 06/08/22 21:53 Ibuprofen (Ibuprofen 200 Mg Tab) 200 mg PO Q6H PRN PRN Reason: Mild Pain Stop: 01/05/23 20:30 Ketorolac Tromethamine (Ketorolac Tromethamine 15 Mg/Ml Vial) 15 mg IV Q6H PRN PRN Reason: Pain Stop: 05/14/22 19:43 Lisinopril (Lisinopril 20 Mg Tab) 20 mg PO HS [facility] Stop: 06/08/22 21:53 Last Admin: 05/09/22 22:24 Dose: Not Given Lorazepam (Lorazepam 0.5 Mg Tab) 0.5 mg PO TID PRN PRN Reason: Anxiety Stop: 06/08/22 21:53 Oxycodone HCl (Oxycodone Hcl Ir 5 Mg Tab (Immediate Release)) 5 - 10 mg PO QID PRN PRN Reason: Pain Stop: 05/23/22 19:43 Last Admin: 05/09/22 23:52 Dose: 10 mg Pantoprazole Sodium (Pantoprazole 40 Mg Tab) 40 mg PO DAILYBB STEPHANIE Stop: 06/09/22 06:29 Last Admin: 05/10/22 05:33 Dose: 40 mg
--- NOTE | 2022-05-10 17:07 | Discharge Summary ---
Date of Service May 10, 2022 Admission HPI Per Admitting Provider History obtained from patient, family, and records. Medical history significant for hypertension, hyperlipidemia, GERD, NAFLD, right adrenal myolipoma status post surgery, urolithiasis, mood disorder, past tobacco abuse. Last confinement February 2022 for obstructing left ureteral stone with hydronephrosis status post stent insertion. 1 week history of right back pain with some radiation to the hip. No recollection of recent trauma or unusual exertion. No leg radiation, no incontinence symptoms. No fever, no chills. No chest pain, no shortness of breath. Worsening at work today on the field as a [employer] employee. Intractable discomfort at the ER. 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 Admission Exam Per Admitting Provider Physical Exam: GENERAL: Comfortable, pleasant, morbidly obese, no respiratory distress SKIN: Normal color, warm HEENT: Alopecia, [place] palpebral conjunctivae, no ptosis, moist buccal mucosa NECK : Supple, short neck, no tenderness CHEST : CTA, no tenderness HEART : RRR, no obvious murmurs ABDOMEN: Some distention, nontender BACK : Minimal right back tenderness, negative straight leg raise test EXTREMITIES : No LE swelling/tenderness, no other conspicuous deformities noted NEUROLOGIC : Coherent, no facial asymmetry, no other gross focality Principal Diagnosis Low back pain without radiculopathy Discharge Exam Lying in bed comfortably Constitutional well developed, well nourished and + obese; not ill appearing Eyes PERRL, conjunctivae normal, anicteric sclerae ENMT external ear and nose normal, oropharynx normal Neck trachea midline, no thyromegaly Respiratory no respiratory distress Auscultation: lungs clear to auscultation bilaterally Cardiovascular Rate/Rhythm: regular rate and regular rhythm; not tachycardic Heart Sounds: normal S1 and normal S2; no murmur Extremities: no edema Gastrointestinal (Abdomen) Inspection/Auscultation: normal bowel sounds; abdomen not distended Percussion/Palpation: abdomen soft; abdomen nontender Psychiatric A+Ox3, euthymic affect Lymphatic no cervical or axillary lymphadenopathy Discharge Data Allergies Allergy/AdvReac Type Severity Reaction Status Date / Time ciprofloxacin Allergy Mild Hives Verified 02/23/22 10:21 Ordered Studies 05/09/22 15:22 CT abd pelvis IV con only Stat CT lumbar spine w con Stat Hospital Course (1) Back pain: Low back pain without any evidence of radiculopathy No bladder and or bowel problem and no problem with ambulation Possible muscle strain Patient nontoxic. CT scan of the lumbar spine remains unremarkable CT scan of the abdomen and pelvis did not show any significant findings Remains free of any pain this morning Has had physical therapy and did very well and recommendation was to get outpatient physical therapy as well Will be discharged home this afternoon Hypertension, stable Blood pressure remains stable at 130/73 Hyperlipidemia, not on medications hx GERD stable hx NAFLD Right adrenal myolipoma status post surgery CT of the abdomen and pelvis remained unremarkable Hyperglycemia rule out DM Check hemoglobin A1c -5.7 Past tobacco abuse DVT prophylaxis per Lovenox subcu Full code Will be discharged home this afternoon Total Time Total Time Spent Total Time Spent (In Minutes): 35 minutes Discharge Plan Discharge Items Patient Disposition: Home - Home Health Services Reason For Visit: BACK PAIN Discharge Diagnosis: Low back pain without radiculopathy Condition on Discharge: Good Activity: Resume your previous activity Non-emergency contact: Primary Care Provider Call non-emergency contact if: you have any medication questions and your symptoms worsen Follow-up/Referrals: Edi Winters, [Primary Care Provider] - (Date & Time 05/16/2022 7:00 AM Provider Alcides Alva PA-C Department General Internal Medicine [facility] ) Diet: Heart Healthy and Low Sodium (2gm) Addtl Attending Provider Instructions: Please take precautions to avoid fall You can try ibuprofen and/or Tylenol to control pain Continue physical therapy as an outpatient Keep appointment with your healthcare provider Pending Studies at Discharge: No Stand-Alone Forms: My zerved, Work/School Release, Smoking Cessation Medications and DC Order Prescriptions: Continued lisinopril 20 mg tablet 20 mg PO HS hydrochlorothiazide 25 mg tablet 25 mg PO DAILY omeprazole magnesium [Prilosec OTC] 20 mg Tablet,Delayed Release (Dr/Ec) 20 mg PO DAILYBB selenium 200 mcg Tablet 200 mcg PO DAILY cholecalciferol (vitamin D3) [Vitamin D3] 25 mcg (1,000 unit) Tablet 25 mcg PO DAILY [place]-3 Fish Oil 300-1,000 mg Capsule 1 cap PO DAILY ascorbic acid (vitamin C) [Vitamin C] 500 mg Tablet,Chewable 500 mg PO DAILY magnesium 200 mg Tablet 200 mg PO DAILY Discharge Orders: Discharge Order (Routine); Ordered 05/10/22 Ordered By: Thais Walker/Other Patient Handouts: Relieving Back Pain, Back Basics: A Healthy Spine, Back Care Every Day Admission Data Admit Date/Time: 05/10/22 11:04 Attending Provider: Thais Forbes Admit Provider: Thais Forbes Primary Care Provider: Edi Winters Other Interventions: Discharge Summary Assessment (RN) Last Done: 05/10/22 15:49
== END 2022-05-10 16:28 | disposition home health service (06) | DRG 552 ==
LOC: 3W 14:45 → ED 14:45 → 3W 21:19
DX: Z88.1 Allergy status to other antibiotic agents; I10 Essential (primary) hypertension; S33.5XXA Sprain of ligaments of lumbar spine, initial encounter; E78.5 Hyperlipidemia, unspecified; F39 Unspecified mood [affective] disorder; R73.9 Hyperglycemia, unspecified; K43.2 Incisional hernia without obstruction or gangrene; Z86.16 Personal history of COVID-19; K76.0 Fatty (change of) liver, not elsewhere classified; Z83.3 Family history of diabetes mellitus; X50.9XXA Other and unspecified overexertion or strenuous movements or postures, initial encounter; Z87.442 Personal history of urinary calculi; Z87.891 Personal history of nicotine dependence; K21.9 Gastro-esophageal reflux disease without esophagitis; Y92.89 Other specified places as the place of occurrence of the external cause